=== PATIENT | male | born 1965 | race Two or more races ===

== ENCOUNTER 2020-03-14 16:14 | Emergency (ER) | payer MEDICAID, SELFPAY ==
[2020-03-14 16:34] VITALS: BP 129/80; PULSE 77; RESP 18; TEMP 36.3; O2SAT 98; BMI 47.1
--- NOTE | 2020-03-14 16:39 | ED.GENADULT ---
HPI - General Adult General Chief complaint: Wound/Laceration Stated complaint: Leg LAc Time Seen by Provider: 03/14/20 16:38 Source: patient Mode of arrival: ambulatory Limitations: no limitations History of Present Illness HPI narrative: 55 y/o male with history of obesity, DM2, HTN, CHF who presents with left lower leg laceration after a scrap metal door slammed into his leg when he was trying to dispose of it with his son. Laceration is small and he was able to control the bleeding. Not on blood thinners. No other injuries. Walking normally. complaint: laceration Onset (ago): hour(s) (1) Location: lower extremity Radiation: non-radiation Severity: mild Severity scale (1-10): 3 Quality: aching Pain Consistency: now resolved Relieving factors: none Exacerbating factors: none Associated symptoms: denies other symptoms Treatments prior to arrival: other (bandage) Related Data Previous Rx's Medication Instructions Recorded cephalexin [Keflex] 500 mg PO QID 7 Days #28 cap 03/14/20 Allergies Allergy/AdvReac Type Severity Reaction Status Date / Time No Known Allergies Allergy Verified 03/14/20 16:34 [No Known Allergies*] Review of Systems Review of Systems: Constitutional: No Fever, No Chills Cardiovascular: No Chest Pain, No SOB Respiratory: No Cough, No Sputum Gastrointestinal: No Nausea, No Vomiting, No Diarrhea, No abdominal Pain Musculoskeletal: No joint pain, No Myalgias Skin: + Skin Lesions, No rash Neuro: No Weakness, No Numbness Heme/Lymph: No Bruising PMFSH Past Medical History Attestation statement: The following information was validated with the patient. Medical History Diabetes HTN (hypertension) Obese Social History Social History Advance Directives: No Advance Directives Information Provided: No Physical Exam Vital Signs: Vital Signs: Last Vital Signs Temp 97.3 F 03/14/20 16:34 Pulse 77 03/14/20 16:34 Resp 18 03/14/20 16:34 BP 129/80 03/14/20 16:34 Pulse Ox 98 03/14/20 16:34 Body Mass Index 47.1 Appearance: Alert. Oriented X3. No acute distress. HEENT: normal inspection Respiratory: No respiratory distress. Skin: Skin warm and dry. Normal skin color. Normal skin turgor. No rashes. Extremities: lower left lateral leg with 1cm superficial laceration, no active bleeding. no calf tenderness. no surrounding erythema. Neuro: Oriented X 3. Non-focal. Normal, steady gait. Course Course Course Narrative: Rapid medical exam on arrival to ER - 55 y/o male with hx DM2, HTN, CHF presenting with small left lower leg laceration after a large scrap metal door slammed into his son's house. No other injuries, bleeding controlled on arrival. Does not appear to need repair - anticipate steri-strips and abx. Reevaluation(s) Reevaluation #1: TDAP given. Procedures Laceration Laceration 1: Site: lower extremity Side (If applicable): left Size (cm): 1 Description: linear and clean Depth: simple, single layer Pre-repair: irrigated extensively Skin layer closed with: other (steri strips) Discharge Plan Discharge Clinical Impression: Laceration Patient Disposition: Home, Self-Care Instructions: Laceration (ED) Additional Instructions: Keep area clean and dry. Allow steri-strips to fall off on their own, do not peel off. You may get wound wet briefly with soap and water, then pat dry. Take the antibiotic to prevent infection. Monitor for signs of infection including redness, warmth, pain, drainage of pus. Follow up with your doctor this week as needed. Prescriptions: New cephalexin [Keflex] 500 mg capsule 500 mg PO QID 7 Days Qty: 28 RF: 0
== END 2020-03-14 17:46 | disposition home or self-care (01) ==
LOC: HO.ED 17:22
PROVIDERS: Emergency Provider Emergency Medicine; PCP Internal Medicine
DX: S81.812A Laceration without foreign body, left lower leg, initial encounter (principal); W26.8XXA Contact with other sharp object(s), not elsewhere classified, initial encounter; Y93.E9 Activity, other interior property and clothing maintenance; Y92.019 Unspecified place in single-family (private) house as the place of occurrence of the external cause; Y99.9 Unspecified external cause status
CPT/HCPCS: 90471; 90715; 99283; 99284

== ENCOUNTER → 2020-04-12 14:37 | Outpatient (BNVA) | payer MEDICAID, SELFPAY | PROVIDERS: PCP Internal Medicine; Visit Provider Internal Medicine | DX: E66.01 Morbid (severe) obesity due to excess calories (principal); G47.33 Obstructive sleep apnea (adult) (pediatric); Z99.89 Dependence on other enabling machines and devices | CPT/HCPCS: 99212 ==

== ENCOUNTER 2020-10-03 11:14 | Emergency (ER) | payer MEDICAID, SELFPAY ==
--- NOTE | ~2020-10-03 | XR_ITS ---
EXAMINATION: XR RIBS, LEFT CLINICAL INFORMATION: Pain. COMPARISON: 09/21/2018 TECHNIQUE: 3 views of the left ribs were obtained and AP view of the chest. FINDINGS: Lungs are clear. No consolidation, pneumothorax, or pleural effusion. The cardiomediastinal silhouette and pulmonary vasculature are normal. Osseous structures are unremarkable. Ribs are intact. No fractures are identified. Degenerative disc disease is present in the thoracic spine. XR/XR ribs LT min 3V w CXR1V IMPRESSION: No acute pulmonary findings. No acute abnormalities at the left ribs.
[2020-10-03 11:37] VITALS: BP 140/70; PULSE 77; RESP 18; TEMP 37.2; O2SAT 98; BMI 41.3
[2020-10-03 12:17] LABS: MANUAL DIFF FLAG NO
[2020-10-03 12:26] LABS: Basophils Percent Auto 0.3 % (0-2); Eosinophils Absolute Auto 0.1 X10*3/uL (0.0-0.4); Eosinophils Percent Auto 0.5 % (0-4); Hematocrit 44.8 % (42-52); Hemoglobin 15.6 g/dl (14.0-18.0); Imm Gran Abs Auto 0.03 X10*3/uL (0.00-0.03); Imm Gran Pct Auto 0.3 % (0.0-0.4); Lymphocytes Absolute Auto 1.7 X10*3/uL (1.2-4.9); Lymphocytes Percent Auto 18.3 % (20-40); Mean Corpuscular HGB Conc 34.8 g/dl (31.0-36.0); Mean Corpuscular Hemoglobin 30.7 pg (27.0-33.0); Mean Corpuscular Volume 88.2 fL (80-98); Mean Platelet Volume 9.7 fL (9.4-12.4); Monocytes Absolute Auto 0.7 X10*3/uL (0.1-1.2); Monocytes Percent Auto 7.2 % (2-11); Neutrophils Absolute Auto 6.7 X10*3/uL (2.0-8.3); Neutrophils Percent Auto 73.4 % (45-73); Platelet Count 253 X10*3/uL (160-400); Red Blood Count 5.08 X10*6/uL (4.60-5.80); White Blood Count 9.1 X10*3/uL (4.8-10.8)
[2020-10-03 12:53] LABS: Alanine Aminotransferase 22 U/L (0-40); Albumin Level 4.2 g/dL (3.5-5.0); Alkaline Phosphatase 72 U/L (39-117); Anion Gap 13 (12-20); Aspartate Amino Transferase 21 U/L (5-37); Bilirubin Total 0.5 mg/dL (0.0-1.0); Blood Urea Nitrogen 12 mg/dL (9-16); Calcium 9.4 mg/dL (8.4-10.2); Carbon Dioxide 32 mmol/L (22-29); Chloride 97 mmol/L (96-108); Creatinine Clr Calc Pharmacy 117.3; Estimated Glomerular Filt Rate > 60; Glucose Random 114 mg/dL (60-115); Sodium 139 mmol/L (135-145); Total Protein 7.2 g/dL (6.5-8.0)
--- NOTE | 2020-10-03 19:12 | ECG_ITS ---
Test Reason : BACK PAIN Blood Pressure : / mmHG Vent. Rate : 065 BPM Atrial Rate : 065 BPM P-R Int : 146 ms QRS Dur : 102 ms QT Int : 452 ms P-R-T Axes : 055 036 059 degrees QTc Int : 470 ms Normal sinus rhythm Normal ECG When compared to the previous EKG of Nonspecific ST abnormality is no longer Present Referred By: Alvina Mueller Electronically Signed By:JURGEN CORRAL MD
--- NOTE | 2020-10-03 19:12 | ED.GENADULT ---
HPI - General Adult General Chief complaint: General Medical Stated complaint: back pain Time Seen by Provider: 10/03/20 19:11 History of Present Illness HPI narrative: Patient is a 55-year-old male presented today with having pain to the left upper back area. Worse with movement. Last a few seconds and is sharp. Certain types of movement makes it worse. Patient has a history diabetes. Was lifting up 50 lb blocks. Denies any coughing congestion upper respiratory symptoms. No diaphoresis. No fever no chills. No nausea no vomiting. Patient from home. Related Data Home Medications Medication Instructions Recorded Confirmed chlorthalidone 25 mg tablet 25 mg PO DAILY 04/12/20 metformin 500 mg tablet 500 mg PO DAILY 04/12/20 Previous Rx's Medication Instructions Recorded cephalexin 500 mg capsule (Keflex) 500 mg PO QID 7 Days #28 cap 03/14/20 Allergies Allergy/AdvReac Type Severity Reaction Status Date / Time No Known Allergies Allergy Verified 10/03/20 11:37 [No Known Allergies*] Review of Systems Review of Systems: Constitutional: No Weight loss, No Fever, No Chills, No Night Sweats, No Fatigue, No Malaise ENT/Mouth: No Hearing loss, No Ear Pain, No Nasal Congestion, No Sinus Pain, No Hoarseness, No sore throat, No Rhinorrhea, No Swallowing Difficulty Eyes: No Eye Pain, No Swelling, No Redness, No Foreign Body, No Discharge, No Vision Changes Cardiovascular: Positive left upper back pain, No SOB, No Dyspnea on Exertion, No Orthopnea, No Edema, No Palpitations Respiratory: No Cough, No Sputum, No Wheezing, No Smoke Exposure, No Dyspnea Gastrointestinal: No Nausea, No Vomiting, No Diarrhea, No Constipation, No abdominal Pain, No Hematochezia, No Melena Genitourinary: no irregular bleeding, No Dysuria, No Urinary Frequency, No Hematuria, No Urinary Incontinence, No Urgency, No Flank Pain, No Urinary Flow Changes, No Hesitancy Musculoskeletal: No joint pain, No Myalgias, No Joint Swelling Skin: No Skin Lesions, No rash Neuro: No Weakness, No Numbness, No Paresthesias, No Loss of Consciousness, No Dizziness, No Headache Psych: No Anxiety/Panic, No Depression, No SI/HI/AH/VH, No Social Issues, Heme/Lymph: No Bruising, No Bleeding,No Lymphadenopathy Endocrine: No Polyuria, No Polydipsia, No Temperature Intolerance [facility] Past Medical History Attestation statement: The following information was validated with the patient. Medical History Diabetes HTN (hypertension) Morbid obesity Obese ANGELA on CPAP Social History Social History Alcohol intake: current Patient Tobacco Use Status: Current everyday Tobacco user Cigarette Packs Per Day: 0.5 Cigarettes Per Day: 5 Use of substances other than those prescribed or required for medical reasons: No Advance Directives: No Physical Exam Vital Signs: Vital Signs: Last Vital Signs Temp 97.2 F 10/03/20 20:00 Pulse 78 10/03/20 20:00 Resp 16 10/03/20 20:00 BP 126/78 10/03/20 20:00 Pulse Ox 98 10/03/20 20:00 Body Mass Index 41.3 Appearance: Alert. Oriented X3. No acute distress. Eyes: Pupils equal, round and reactive to light. ENT: Pharynx normal. Neck: Normal inspection. Neck supple. No lymph nodes noted. No crepitus CVS: Normal heart rate and rhythm. Pulses normal. Normal S1 and S2 Respiratory: No respiratory distress. Breath sounds normal. No Wheezing. No rales. No chest wall tenderness no crepitus on palpation. Abdomen: Soft and nontender. No rigidity. No distention. good BS x4 Skin: Skin warm and dry. Normal skin color. Normal skin turgor. Extremities: No lower extremity edema. Neurovascular intact to all extremities. No Lacerations. No Rash Neuro: Oriented X 3. No motor deficit. No sensory deficit. Moving all extermities. No slurred speech Medical Decision Making MDM Narrative Medical decision making narrative: Will get x-ray of the ribs to ensure there is no fracture. Baseline labs are normal. Will get an EKG. We will monitor carefully. X-ray of the ribs and chest showed no evidence of pneumonia, pneumothorax no rib fracture noted. Patient's EKG showed a sinus pattern heart rate was 70 MI QRS QT within normal limits is no acute ST segment elevation. History not consistent with acute myocardial infarction. Urine showed no infection. No CVA tenderness no blood. Unlikely secondary to kidney stone. Patient's pain is positional. Few seconds at a time. D-dimer is negative at less than 200. A low risk history making pulmonary emboli unlikely. Will discharge patient home Lab Data Result diagrams: 10/03/20 12:13 10/03/20 12:13 Labs: Lab Results 10/03/20 10/03/20 10/03/20 Range/Units 12:13 12:13 20:13 WBC 9.1 (4.8-10.8) X10*3/uL RBC 5.08 (4.60-5.80) X10*6/uL Hgb 15.6 (14.0-18.0) g/dl Hct 44.8 (42-52) % MCV 88.2 (80-98) fL MCH 30.7 (27.0-33.0) pg MCHC 34.8 (31.0-36.0) g/dl RDW 12.0 (11.0-16.0) % Plt Count 253 (160-400) X10*3/uL MPV 9.7 (9.4-12.4) fL Immature Gran % (Auto) 0.3 (0.0-0.4) % Neut % (Auto) 73.4 H (45-73) % Lymph % (Auto) 18.3 L (20-40) % [place] % (Auto) 7.2 (2-11) % Eos % (Auto) 0.5 (0-4) % Baso % (Auto) 0.3 (0-2) % Lymph # (Auto) 1.7 (1.2-4.9) X10*3/uL [place] # (Auto) 0.7 (0.1-1.2) X10*3/uL Eos # (Auto) 0.1 (0.0-0.4) X10*3/uL Baso # (Auto) 0.0 (0.0-0.2) X10*3/uL Abs Immat Gran (auto) 0.03 (0.00-0.03) X10*3/uL Absolute Neuts (auto) 6.7 (2.0-8.3) X10*3/uL Absolute Nucleated RBC 0.000 (0.0-0.012) X10*3/uL Nucleated RBC % (auto) 0.0 (0.0-0.2) /100WBC D-Dimer < 200 NG/ML Sodium 139 (135-145) mmol/L Potassium 3.0 L (3.3-5.1) mmol/L Chloride 97 (96-108) mmol/L Carbon Dioxide 32 H (22-29) mmol/L Anion Gap 13 (12-20) BUN 12 (9-16) mg/dL Creatinine 0.92 (0.5-1.4) mg/dL Estim Creat Clear Calc 117.3 Estimated GFR > 60 Random Glucose 114 (60-115) mg/dL Calcium 9.4 (8.4-10.2) mg/dL Total Bilirubin 0.5 (0.0-1.0) mg/dL AST 21 (5-37) U/L ALT 22 (0-40) U/L Alkaline Phosphatase 72 (39-117) U/L Total Protein 7.2 (6.5-8.0) g/dL Albumin 4.2 (3.5-5.0) g/dL Urine Color Urine Appearance Urine pH (5.0-8.0) Ur Specific Hugo (1.005-1.025) Urine Protein (NEG-TRACE) MG/DL Urine Glucose (UA) (NEG) MG/DL Urine Ketones (NEG) MG/DL Urine Blood (NEG) Urine Nitrite (NEG) Ur Leukocyte Esterase (NEG) 10/03/20 Range/Units 20:13 WBC (4.8-10.8) X10*3/uL RBC (4.60-5.80) X10*6/uL Hgb (14.0-18.0) g/dl Hct (42-52) % MCV (80-98) fL MCH (27.0-33.0) pg MCHC (31.0-36.0) g/dl RDW (11.0-16.0) % Plt Count (160-400) X10*3/uL MPV (9.4-12.4) fL Immature Gran % (Auto) (0.0-0.4) % Neut % (Auto) (45-73) % Lymph % (Auto) (20-40) % [place] % (Auto) (2-11) % Eos % (Auto) (0-4) % Baso % (Auto) (0-2) % Lymph # (Auto) (1.2-4.9) X10*3/uL [place] # (Auto) (0.1-1.2) X10*3/uL Eos # (Auto) (0.0-0.4) X10*3/uL Baso # (Auto) (0.0-0.2) X10*3/uL Abs Immat Gran (auto) (0.00-0.03) X10*3/uL Absolute Neuts (auto) (2.0-8.3) X10*3/uL Absolute Nucleated RBC (0.0-0.012) X10*3/uL Nucleated RBC % (auto) (0.0-0.2) /100WBC D-Dimer NG/ML Sodium (135-145) mmol/L Potassium (3.3-5.1) mmol/L Chloride (96-108) mmol/L Carbon Dioxide (22-29) mmol/L Anion Gap (12-20) BUN (9-16) mg/dL Creatinine (0.5-1.4) mg/dL Estim Creat Clear Calc Estimated GFR Random Glucose (60-115) mg/dL Calcium (8.4-10.2) mg/dL Total Bilirubin (0.0-1.0) mg/dL AST (5-37) U/L ALT (0-40) U/L Alkaline Phosphatase (39-117) U/L Total Protein (6.5-8.0) g/dL Albumin (3.5-5.0) g/dL Urine Color YELLOW Urine Appearance HAZY Urine pH 7.0 (5.0-8.0) Ur Specific [place] 1.015 (1.005-1.025) Urine Protein 1+ H (NEG-TRACE) MG/DL Urine Glucose (UA) NEG (NEG) MG/DL Urine Ketones NEG (NEG) MG/DL Urine Blood NEG (NEG) Urine Nitrite NEG (NEG) Ur Leukocyte Esterase NEG (NEG) Discharge Plan Discharge Clinical Impression: Acute chest wall pain Patient Disposition: Home, Self-Care Instructions: Chest Wall Pain (ED) Prescriptions: No Action cephalexin [Keflex] 500 mg capsule 500 mg PO QID 7 Days Qty: 28 RF: 0 metformin 500 mg tablet 500 mg PO DAILY RF: 0 chlorthalidone 25 mg tablet 25 mg PO DAILY RF: 0 Referrals: Kyaw Bains MD [Primary Care Provider] - 2 days
[2020-10-03 20:00] VITALS: BP 126/78; PULSE 78; RESP 16; TEMP 36.2; O2SAT 98
--- NOTE | 2020-10-03 20:06 | PC.NURSE ---
3 weeks of left lower back pain. worse when rotating thorax to the left denies uti sx. strong steady gait. family present. skin pwd.
[2020-10-03 20:23] LABS: Glucose Urine UA NEG (NEG); Leukocyte Esterase Urine NEG (NEG); Nitrite Urine NEG (NEG); Specific Gravity - Urine 1.015 (1.005-1.025); UACC Culture Trigger NO; Urine Blood NEG (NEG); Urine Ketones NEG (NEG); Urine Protein 1+ MG/DL (NEG-TRACE)
[2020-10-03 20:25] LABS: Appearance Urine HAZY; Color Urine YELLOW
[2020-10-03 20:47] LABS: D Dimer < 200 NG/ML
[2020-10-03 20:49] LABS: Amorphous Sediment Urine 2+ /LPF; Bacteria Urine TRACE /LPF; RBC Urine 0-2 /HPF (0); Squamous Epithelial Cell Urine TRACE /LPF
== END 2020-10-03 21:11 | disposition home or self-care (01) ==
PROVIDERS: Emergency Provider Emergency Medicine Emergency Medical Services; PCP Internal Medicine
DX: R07.89 Other chest pain (principal); M54.5 Low back pain; I10 Essential (primary) hypertension; E11.9 Type 2 diabetes mellitus without complications; F17.210 Nicotine dependence, cigarettes, uncomplicated; Z79.899 Other long term (current) drug therapy; Z71.6 Tobacco abuse counseling
CPT/HCPCS: 36415; 71101; 80053; 81001; 85025; 85379; 93005; 99283; 99284

== ENCOUNTER → 2020-10-13 09:05 | Outpatient (BNVA) | payer MEDICAID, SELFPAY | PROVIDERS: PCP Internal Medicine; Visit Provider Internal Medicine | DX: E66.01 Morbid (severe) obesity due to excess calories (principal); G47.33 Obstructive sleep apnea (adult) (pediatric); Z99.89 Dependence on other enabling machines and devices | CPT/HCPCS: 99212 ==

== ENCOUNTER → 2021-04-10 09:31 | Outpatient (BNVA) | payer MEDICAID, SELFPAY | PROVIDERS: PCP Internal Medicine; Visit Provider Internal Medicine | DX: G47.33 Obstructive sleep apnea (adult) (pediatric) (principal); E66.01 Morbid (severe) obesity due to excess calories; Z99.89 Dependence on other enabling machines and devices; Z68.41 Body mass index [BMI] 40.0-44.9, adult | CPT/HCPCS: 99212 ==

== ENCOUNTER 2021-05-20 08:48 | Outpatient (REF) | payer MEDICAID, SELFPAY ==
[2021-05-20 10:03] LABS: Anion Gap 15 (12-20); Blood Urea Nitrogen 11 mg/dL (9-16); Calcium 9.7 mg/dL (8.4-10.2); Carbon Dioxide 30 mmol/L (22-29); Chloride 98 mmol/L (96-108); Cholesterol 199 mg/dL; Estimated Glomerular Filt Rate > 60; Glucose Random 133 mg/dL (60-115); HDL Cholesterol 43 mg/dL; LDL Cholesterol Calculated 123 mg/dl; Potassium 3.5 mmol/L (3.3-5.1); Sodium 139 mmol/L (135-145); Triglycerides 166 mg/dL
[2021-05-20 10:28] LABS: Prostate Specific Antigen 0.68 ng/mL (<0.05-4.0); TSH reflex Free T4 2.25 uIU/mL (0.32-4.0)
[2021-05-20 10:38] LABS: Creatinine Urine 189.58 mg/dL; Microalbum/Creatinine Ratio Ur 16.3 ug/mg cr
[2021-05-22 04:05] LABS: ~HepC Num1 0.08 S/CO (0.00-0.79); ~Hepatitis C Antibody Nonreactive (Nonreactive)
== END 2021-05-20 08:49 | disposition home or self-care (01) ==
LOC: HO.LAB 08:48
PROVIDERS: PCP Internal Medicine; Visit Provider Internal Medicine
DX: E11.9 Type 2 diabetes mellitus without complications (principal); E66.01 Morbid (severe) obesity due to excess calories; I10 Essential (primary) hypertension; Z12.5 Encounter for screening for malignant neoplasm of prostate
CPT/HCPCS: 36415; 80048; 80061; 82043; 84153; 84443; 86803

== ENCOUNTER → 2021-11-09 15:00 | Outpatient (BNVA) | payer MEDICAID, SELFPAY | PROVIDERS: PCP Internal Medicine; Visit Provider Internal Medicine | DX: G47.33 Obstructive sleep apnea (adult) (pediatric) (principal); E66.01 Morbid (severe) obesity due to excess calories; Z99.89 Dependence on other enabling machines and devices; Z68.41 Body mass index [BMI] 40.0-44.9, adult | CPT/HCPCS: 99212 ==

== ENCOUNTER 2022-01-15 | Outpatient (REF) | payer MEDICAID, SELFPAY ==
--- NOTE | ~2022-01-15 | XR_ITS ---
EXAMINATION: AP BILATERAL KNEE AND RIGHT KNEE. CLINICAL INFORMATION: Pain right knee. COMPARISON: None TECHNIQUE: AP bilateral knee standing and right knee 2 views. FINDINGS: AP bilateral knee: There is severe loss of medial compartment joint space both knees with moderate periarticular spurring. Minimal loss of lateral compartment joint space with right knee periarticular spurring Right knee: Lateral and patellofemoral views reveal mild reduction in the patellofemoral joint space with superior and right lateral patellar spurring and moderate anterior patellar enthesophytes. No acute fracture, loose bodies or bony erosive changes seen. No abnormal suprapatellar joint effusion seen. XR/XR knee standing BI IMPRESSION: 1. Degenerative arthritic changes tricompartment right knee with periarticular spurring. No acute fracture, loose bodies or joint effusion seen. 2. Degenerative arthritic changes medial and patellofemoral compartment with periarticular spurring.
--- NOTE | ~2022-01-15 | XR_ITS ---
EXAMINATION: AP BILATERAL KNEE AND RIGHT KNEE. CLINICAL INFORMATION: Pain right knee. COMPARISON: None TECHNIQUE: AP bilateral knee standing and right knee 2 views. FINDINGS: AP bilateral knee: There is severe loss of medial compartment joint space both knees with moderate periarticular spurring. Minimal loss of lateral compartment joint space with right knee periarticular spurring Right knee: Lateral and patellofemoral views reveal mild reduction in the patellofemoral joint space with superior and right lateral patellar spurring and moderate anterior patellar enthesophytes. No acute fracture, loose bodies or bony erosive changes seen. No abnormal suprapatellar joint effusion seen. XR/XR knee RT 2V IMPRESSION: 1. Degenerative arthritic changes tricompartment right knee with periarticular spurring. No acute fracture, loose bodies or joint effusion seen. 2. Degenerative arthritic changes medial and patellofemoral compartment with periarticular spurring.
== END 2022-01-15 00:01 ==
LOC: HO.HOSX
PROVIDERS: Visit Provider Physician Assistant
DX: M17.11 Unilateral primary osteoarthritis, right knee (principal); E11.9 Type 2 diabetes mellitus without complications
CPT/HCPCS: 20610; 73560; 73565; 99212; J1020

== ENCOUNTER 2022-01-27 07:04 | Outpatient (REF) | payer MEDICAID, SELFPAY ==
[2022-01-27 08:10] LABS: Anion Gap 11 (12-20); Blood Urea Nitrogen 14 mg/dL (9-16); Calcium 9.4 mg/dL (8.4-10.2); Carbon Dioxide 34 mmol/L (22-29); Chloride 93 mmol/L (96-108); Cholesterol 188 mg/dL; Estimated Glomerular Filt Rate > 60; Glucose Random 124 mg/dL (60-115); HDL Cholesterol 53 mg/dL; LDL Cholesterol Calculated 97 mg/dl; Potassium 3.6 mmol/L (3.3-5.1); Sodium 134 mmol/L (135-145); Triglycerides 191 mg/dL
== END 2022-01-27 07:05 | disposition home or self-care (01) ==
LOC: HO.LAB 07:04
PROVIDERS: PCP Internal Medicine; Visit Provider Internal Medicine
DX: I10 Essential (primary) hypertension (principal)
CPT/HCPCS: 36415; 80048; 80061

== ENCOUNTER → 2022-05-09 14:29 | Outpatient (BNVA) | payer MEDICAID, SELFPAY | PROVIDERS: PCP Internal Medicine; Visit Provider Internal Medicine | DX: G47.33 Obstructive sleep apnea (adult) (pediatric) (principal); E66.01 Morbid (severe) obesity due to excess calories; Z99.89 Dependence on other enabling machines and devices; Z68.42 Body mass index [BMI] 45.0-49.9, adult | CPT/HCPCS: 99212 ==

== ENCOUNTER 2022-11-15 14:33 | Outpatient (AMB) | payer MEDICAID, SELFPAY ==
[2022-11-15 14:43] VITALS: BP 118/70; PULSE 89; O2SAT 97; BMI 40.1
--- NOTE | 2022-11-15 14:43 | MHC.OFFVIS ---
Intake Vital Signs 11/15/22 14:43 Height 5 ft 8 in Weight 264 lb BMI 40.1 BP 118/70 Blood Pressure Location Lt brachial Position Sitting Pulse 89 Pulse Source Pulse Oximeter Pulse Oximetry (%) 97 Oxygen Delivery Method Room Air Intake Visit Reasons: Obstructive sleep apnea Intake Note: pt is here for follow up and states he is down some weight, he is using cpap and it is going well. 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 He is a case of obstructive sleep apnea, being treated with CPAP / FF mask and pressure of 18 cm. Is a very regular user of CPAP. And misses on some nights when he has to look after his daughter who has seizure disorder. 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 In the last 6 months he has lost 33 lb of weight, feels very good about this, and plans to lose more even during the winter months. He has no issues with the use of CPAP device. [facility] Medical History ANGELA on CPAP Morbid obesity Diabetes HTN (hypertension) Obese Social History Alcohol intake: current Patient Tobacco Use Status: Current everyday Tobacco user Cigarette Packs Per Day: 0.5 Cigarettes Per Day: 5 Current occupational status: unemployed Current occupation: right hand dominant Review of Systems Const All systems reviewed & are unremarkable except as noted in HPI and below Eyes Reports no additional complaints ENT Reports no additional complaints Card Denies chest pain, Denies irregular heart rhythm and Denies leg edema Resp Reports no additional complaints GI Reports no additional complaints Reports no additional complaints Musc Reports no additional complaints Skin/Breast Reports system reviewed and no additional complaints, except as documented Neuro Reports no additional complaints Psych Reports no additional complaints Endo Reports other (Being treated for her DM.) Reilly/Lymph Reports no additional complaints Physical Exam Vital Signs: Last Vital Signs Pulse 89 11/15/22 14:43 BP 118/70 11/15/22 14:43 Pulse Ox 97 11/15/22 14:43 Oxygen Delivery Method Room Air 11/15/22 14:43 BMI result Body Mass Index 40.1 Const Other: HAS LOST 19 LB SINCE LAST VISIT General: comfortable, no acute distress, alert and awake Orientation/consciousness: patient oriented x3 HEENT Head: Yes normal to inspection General nose exam: No nasal polyps present and No nasal discharge present Face and sinus: Yes sinuses nontender Mouth: oropharynx abnormals (Narrow and crowded, Mallampati class 4) Throat: Yes posterior oropharynx normal Eyes General: appearance normal, both eyes and all related structures Neck Neck: Yes normal visual inspection, Yes no lymphadenopathy, Yes trachea midline and Yes no JVD Thyroid: Thyroid normal Chest Chest palpation & inspection: normal inspection of the chest, normal palpation of entire chest wall and no tenderness Resp Effort & Inspection: normal respiratory effort Auscultation: clear to auscultation bilaterally, no crackles, no rhonchi and no wheezes Percussion: percussion normal Cardio Palpation: normal PMI Rate: regular rate Rhythm: regular rhythm Heart sounds: no gallops and no murmurs GI Palpation (GI): Soft to palpation, nontender, No hepatosplenomegaly present, no masses and Other GI palpation findings present (Abdomen is slightly obese and protuberant) Auscultation: normal bowel sounds Back/Spine/Pelvis Thoracic/Lumbar Spine: thoracic and lumbar spine normal to inspection Skin General skin exam: no rashes or lesions noted Neuro General: patient oriented x3 and no focal motor deficits Cranial nerves: Yes CN's II-XII intact bilaterally Extrem General: Yes normal to inspection, Yes no clubbing, cyanosis or edema, Yes no calf tenderness and Yes venous stasis dermatitis (Mild the left leg.) Psych Appearance: grossly normal and well kempt Speech and movement: Normal speech and movement present Results Reviewed Results Reviewed: COMPLIANCE REPORT FOR THE LAST 30 NIGHTS IS REVIEWED. HE USED / NIGHTS. AVERAGE USE PER NIGHT 5 HOURS 40 MINUTES. NO AIR LEAK. RESIDUAL AHI 2.5. * NOTED ABOVE HE MISSED USING FOR 4 NIGHTS IN A MONTH BECAUSE ON THOSE NIGHTS HE HAD TO LOOK AFTER HIS DAUGHTER WITH SEIZURE DISORDER. Assessment & Plan Assessment & Plan (1) Morbid obesity: Comment: HE IS WELL AWARE OF HIS BEING OVERWEIGHT, AND HAS A GREAT JOB, LOSING 33 LB IN THE LAST 6 MONTHS. HE IS COMMENDED FOR LOSING WEIGHT AND ALSO ENCOURAGED TO KEEP ON LOSING WEIGHT DURING THE WINTER MONTHS WELL. HE SEEMS TO BE VERY MOTIVATED. Code(s): E66.01 - Morbid (severe) obesity due to excess calories (2) ANGELA on CPAP: Comment: HAS BEEN VERY COMPLIANT.AND IS VERY HAPPY WITH THE USAGE. RESIDUAL AHI ONLY 2.5 THIS TIME WHICH IS MUCH IMPROVED. ADVISED TO CONTINUE USING THE CPAP WITH FULL FACE MASK AND PRESSURE OF 18 CM. WILL RECHECK IN 6 MONTHS . Code(s): G47.33 - Obstructive sleep apnea (adult) (pediatric); Z99.89 - Dependence on other enabling machines and devices Coding Level of Care Code Tele Est Pt Level 3 (41541) Diagnoses Morbid obesity E66.01 ANGELA on CPAP G47.33; Z99.89
== END 2022-11-15 15:22 | disposition home or self-care (01) ==
PROVIDERS: PCP Internal Medicine; Visit Provider Internal Medicine
DX: E66.01 Morbid (severe) obesity due to excess calories (principal); Z68.41 Body mass index [BMI] 40.0-44.9, adult; G47.33 Obstructive sleep apnea (adult) (pediatric); Z99.89 Dependence on other enabling machines and devices
CPT/HCPCS: 99213

== ENCOUNTER → 2022-11-15 14:33 | Outpatient (BNVA) | payer MEDICAID, SELFPAY | PROVIDERS: PCP Internal Medicine; Visit Provider Internal Medicine | DX: G47.33 Obstructive sleep apnea (adult) (pediatric) (principal); E66.01 Morbid (severe) obesity due to excess calories; Z68.41 Body mass index [BMI] 40.0-44.9, adult; Z99.89 Dependence on other enabling machines and devices | CPT/HCPCS: 99212 ==

== ENCOUNTER 2023-01-07 09:21 | Outpatient (REF) | payer MEDICAID, SELFPAY ==
[2023-01-07 10:52] LABS: Alanine Aminotransferase 19 U/L (0-40); Albumin Level 4.1 g/dL (3.5-5.0); Alkaline Phosphatase 75 U/L (39-117); Anion Gap 12 (12-20); Aspartate Amino Transferase 18 U/L (5-37); Bilirubin Direct 0.2 mg/dL (0.0-0.5); Bilirubin Total 0.4 mg/dL (0.0-1.0); Blood Urea Nitrogen 9 mg/dL (9-16); Calcium 9.6 mg/dL (8.4-10.2); Carbon Dioxide 33 mmol/L (22-29); Chloride 100 mmol/L (96-108); Estimated Glomerular Filt Rate > 60; Glucose Random 106 mg/dL (60-115); Potassium 3.7 mmol/L (3.3-5.1); Sodium 141 mmol/L (135-145); Total Protein 7.6 g/dL (6.5-8.0)
[2023-01-07 10:55] LABS: Cholesterol 178 mg/dL (<200); HDL Cholesterol 44 mg/dL (>40); LDL Cholesterol Calculated 68 mg/dL (<100); Triglycerides 330 mg/dL (<150)
[2023-01-07 11:09] LABS: Reflex LDLD? No
== END 2023-01-07 09:22 | disposition home or self-care (01) ==
LOC: HO.LAB 09:21
PROVIDERS: PCP Internal Medicine; Visit Provider Internal Medicine
DX: E11.9 Type 2 diabetes mellitus without complications (principal)
CPT/HCPCS: 36415; 80048; 80061; 80076

== ENCOUNTER 2023-08-27 13:43 | Outpatient (AMB) | payer MEDICAID, SELFPAY ==
--- NOTE | 2023-08-27 13:47 | A.OFFVIS_ITS ---
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 He reports he almost fell but was able to support his body by holding on to wall. Patient reports he has been wearing back support brace with some relief. Denies previous physical therapy, spine surgery or injections. He was seen in [facility] in the past and completed MRI in 2019 as noted below. Patient also received cort[facility]one knee injections at [facility] in 2019 and [facility] in 2021 with good results. Patient has been taking NSAIDs and muscle relaxant with minimal relief. He cannot pursue physical therapy at this time due to significant pain. He also reports he is the only income earner at home and cannot miss days at work. Pain affects his daily activities and functioning, mobility, work, sleep, mood, and social interactions. Denies any fever, abdominal or groin pain, bladder or bowel dysfunction or saddle anesthesia. Reports intermittent weakness in left lower extremity. Oswestry Low Back Disability Score=24 (moderate disability) Location: Lower back radiates into his hips, left thigh and LLE Duration: Chronic pain for many years, worsening for past 2 months Characteristics of symptom or complaint: Aching, radiating, cramping, shooting, numbness, tingling, sore, dull Aggravating or associated factors: Standing, prolonged sitting, walking, bending, lifting Relieving factors: Naproxen, warm showers, sitting, rest, activity modifications Treatment: Back brace, weight loss, walking [facility] Medical History (Updated 08/27/23 @ 14:23 by STEPHANIE Vaughan) Lumbar degenerative disc disease Lumbar spinal stenosis Other male erectile dysfunction Chronic midline low back pain without sciatica Hypertriglyceridemia Onychomycosis Bunion, right foot Alcoholism Male hypogonadism Tubular adenoma ANGELA on CPAP Morbid obesity Diabetes HTN (hypertension) Obese Social History Alcohol intake: current Alcohol intake frequency: 0-2 drinks per day Alcohol type: beer Patient Tobacco Use Status: Current everyday Tobacco user Cigarette Packs Per Day: 0.5 Cigarettes Per Day: 5 Current occupational status: unemployed Current occupation: right hand dominant Review of Systems Const All systems reviewed & are unremarkable except as noted in HPI and below Physical Exam Vital Signs: Last Vital Signs BP 142/70 H 08/27/23 13:53 Pulse Ox 96 08/27/23 13:53 Oxygen Delivery Method Room Air 08/27/23 13:53 BMI result Body Mass Index 41.5 General: Appears afebrile. Alert and oriented. Mood and affect appropriate. Follows and participates in conversation appropriately. Respiratory effort is unlabored. No cough. Able to transition from sit to stand unassisted. Ambulates with bilaterally normal heel strike and toe off, reports LLE weakness due to pain. General: Yes no CVA tenderness Back/Spine/Pelvis Other: Limited lumbar ROM due to pain. Antalgic gait, with mild limping. Lumbar axial rotation, forward flexion and bending reproduces moderate pain. Demonstrates 5/5 right and 4/5 left strength of quadriceps bilaterally as well as flexion/dorsiflexion of bilateral feet against resistance. 2+ pedal pulses bilaterally. Straight leg rise with dorsiflexion positive on the left. +1 patellar and achilles reflexes bilaterally. Facet loading test positive bilaterally. Hannah sign, Gideon?s, Pelvic compression and Stinchfield tests are positive bilaterally. No groin pain with I/E hip rotations. Moderate TTP to right GTB and mild TTP to left GTB. Valsalva maneuver negative. Back: no CVA tenderness Cervical Spine: loss of normal cervical lordosis, cervical muscular tenderness, pain with cervical ROM and No Cervical spine tenderness Thoracic/Lumbar Spine: thoracic and lumbar spine normal to inspection, No Thoracic/lumbar spine scar(s), Lasegue's sign positive on the left and localized, pain with thoraco-lumbar ROM, paraspinal muscle tenderness, thoraco- lumbar ROM limited, No thoracic spinal tenderness and lumbar spinal tenderness at L3, at L4 and at L5 Pelvis: buttock tenderness bilaterally Sacroiliac joints: bilaterally tender to palpation Results Reviewed Results Reviewed: Assessment & Plan Assessment & Plan (1) Lumbosacral spondylosis: Code(s): M47.817 - Spondylosis without myelopathy or radiculopathy, lumbosacral region Category: Medical (2) Lumbar degenerative disc disease: Code(s): M51.36 - Other intervertebral disc degeneration, lumbar region Category: Medical (3) Lumbar back pain with radiculopathy affecting left lower extremity: Code(s): M54.16 - Radiculopathy, lumbar region Category: Medical (4) Lumbar spinal stenosis: Code(s): M48.061 - Spinal stenosis, lumbar region without neurogenic claudication Category: Medical Plan Lumbar spine imaging to assess degree of degenerative changes, any subluxation, listhesis, compression fractures or pars defects. MRI of the lumbar spine to assess for neural integrity and compression and follow up on previous lumbar MRI findings. Briefly discsussed interventional treatments for axial, discogenic, and radicular low back pain. Informational pamphletsl provided toady. Patient unable to tolerate physical therapy due to pain. He is encouraged to participate in daily physical activity, adequate hydration, good posture, weight loss with consideration of well-balanced diet. Refill provided for naproxen per patient's request. Side effects and precautions were reviewed with patient. All questions and concerns have been answered and patient agreed with the plan. Patient will return to the clinic to discuss results of the MRI findings when it is done and consider interventional therapy vs Neurosurgert evaluation as indicated.? Orders: Orders 2 XR lumbar spine 4V min 08/27/23 M47.817 - Spondylosis without myelopathy or radiculopathy, lumbosacral region, M48.061 - Spinal stenosis, lumbar region without neurogenic claudication, M51.36 - Other intervertebral disc degeneration, lumbar region, M54.16 - Radiculopathy, lumbar region MR lumbar spine wo con 08/27/23 M47.817 - Spondylosis without myelopathy or radiculopathy, lumbosacral region, M48.061 - Spinal stenosis, lumbar region without neurogenic claudication, M51.36 - Other intervertebral disc degeneration, lumbar region, M54.16 - Radiculopathy, lumbar region Medications: Changed 2 From naproxen 500 mg PO BID M47.817 - Spondylosis without myelopathy or radiculopathy, lumbosacral region, M51.36 - Other intervertebral disc degeneration, lumbar region To naproxen 500 mg PO BID 60 days 120 tabs 0RF pain M47.817 - Spondylosis without myelopathy or radiculopathy, lumbosacral region, M51.36 - Other intervertebral disc degeneration, lumbar region Coding Level of Care Code New Pt Level 4 (73350) Diagnoses Lumbosacral spondylosis M47.817 Lumbar degenerative disc disease M51.36 Lumbar back pain with radiculopathy affecting left lower extremity M54.16 Lumbar spinal stenosis M48.061
[2023-08-27 13:53] VITALS: BP 142/70; O2SAT 96; BMI 41.5
== END 2023-08-27 14:42 | disposition home or self-care (01) ==
PROVIDERS: PCP Internal Medicine; Referring Provider Internal Medicine; Visit Provider Nurse Practitioner Family
DX: M47.817 Spondylosis without myelopathy or radiculopathy, lumbosacral region (principal); M51.36 Other intervertebral disc degeneration, lumbar region; M54.16 Radiculopathy, lumbar region; M48.061 Spinal stenosis, lumbar region without neurogenic claudication
CPT/HCPCS: 99204

== ENCOUNTER → 2023-08-27 13:43 | Outpatient (BNVA) | payer MEDICAID, SELFPAY | PROVIDERS: PCP Internal Medicine; Referring Provider Internal Medicine; Visit Provider Nurse Practitioner Family | DX: M47.817 Spondylosis without myelopathy or radiculopathy, lumbosacral region (principal); M51.36 Other intervertebral disc degeneration, lumbar region; M54.16 Radiculopathy, lumbar region; M48.061 Spinal stenosis, lumbar region without neurogenic claudication; M25.551 Pain in right hip; M25.552 Pain in left hip | CPT/HCPCS: 99212 ==

== ENCOUNTER 2023-08-31 07:34 | Outpatient (REF) | payer MEDICAID, SELFPAY ==
[2023-08-31 08:36] LABS: Cholesterol 182 mg/dL (<200); HDL Cholesterol 47 mg/dL (>40); LDL Cholesterol Calculated 97 mg/dL (<100); Triglycerides 191 mg/dL (<150)
[2023-09-05 21:12] LABS: Testosterone, Free 43.9 pg/mL (35.0-155.0); Testosterone, Total 287 ng/dL (250-1100)
== END 2023-08-31 07:35 | disposition home or self-care (01) ==
LOC: HO.LAB 07:34
PROVIDERS: PCP Internal Medicine; Visit Provider Internal Medicine
DX: N52.8 Other male erectile dysfunction (principal); E78.1 Pure hyperglyceridemia
CPT/HCPCS: 36415; 80061; 84402; 84403

== ENCOUNTER 2023-10-31 12:51 | Outpatient (REF) | payer MEDICAID, SELFPAY ==
--- NOTE | ~2023-10-31 | XR_ITS ---
EXAMINATION: XR LUMBAR SPINE CLINICAL INFORMATION: Spondylosis without myelopathy or radiculopathy. COMPARISON: MRI dated 10/31/2023. TECHNIQUE: AP, lateral, and both oblique views of the lumbosacral spine. Lateral view of the lumbosacral junction. FINDINGS: Vertebral body heights are normal. No fracture or spondylolisthesis. Moderate degenerative disc disease at L4-L5 with loss of intervertebral disc height and endplate sclerosis. Prominent endplate osteophytes. More mild degenerative disc disease at L3-L4 and L5-S1. [id number] multilevel facet arthropathy. Mild osteoarthritis in the SI joints. Bone mineralization is normal. Cholelithiasis. XR/XR lumbar spine 4V min IMPRESSION: 1. Moderate degenerative disc disease at L4-L5 and more mild degenerative disc disease at L3-L4 and L5-S1. 2. [id number] multilevel facet arthropathy. 3. Cholelithiasis. Electronically signed by: Gaurav Kenney MD 11/18/2023 11:10 PM EDT
--- NOTE | ~2023-10-31 | MR_ITS ---
EXAMINATION: MR LUMBAR SPINE WITHOUT CONTRAST CLINICAL INFORMATION: Low back pain. Remote history of prior fall. Left leg pain. COMPARISON: X-ray lumbar spine dated 08/09/2018. TECHNIQUE: Multiplanar, multisequence imaging was obtained. FINDINGS: VERTEBRAL BODIES AND PARASPINAL STRUCTURES: There are exuberant sclerotic endplate changes and severe disc space narrowing with a mild retrosubluxation at the L4-L5 level. Mild endplate edematous changes in the lateralized to the right side at the L5-S1 level. Congenital narrowing of the spinal canal evident with foreshortening of the pedicles, most notably at the L3-L4 levels. Epidural fat prominence in the lumbosacral canal contributes to varying degrees of thecal sac distortion. There is mild endplate edema and a slight posterior subluxation at the L3-L4 level. Minimal endplate edematous changes present at the L2-L3 level. No compression fractures visible. The paraspinal soft tissues are normal. Although only partially visualized on the sagittal images, there is significant edema in the right lateral aspect of the T12 vertebral body. Additional right lateral paraspinal soft tissue edema is visible at the T11-T12 level. There is an incompletely visualized right lateral bridging endplate osteophyte at this level as well with marrow signal abnormality. CONUS MEDULLARIS AND CAUDA EQUINE: The distal cord, conus tip, and cauda equina nerve roots are normal. SPINAL LEVELS: L1-L2: Mild facet arthropathy and very mild disc bulge without central canal stenosis or significant foraminal narrowing. L2-L3: Broad-based central disc protrusion and underlying annular tear significantly distorts the thecal sac. Hypertrophic facet arthropathy and dorsal epidural fat prominence with moderate central canal stenosis. Moderate bilateral foraminal narrowing. L3-L4: Mild posterior subluxation and broad-based, shallow central disc protrusion with an underlying annular tear. Diffuse disc bulge and hypertrophic facet arthropathy with thickening of the ligamentum flavum. Moderate central canal stenosis. Epidural fat prominence contributes to severe thecal sac distortion. Moderate left and mild right foraminal narrowing. L4-L5: Severe chronic degenerative endplate changes and disc space narrowing with a posterior subluxation. Right paracentral disc protrusion superimposed upon a broad-based disc bulge and hypertrophic facet arthropathy. Dorsal epidural fat prominence also present. Moderate to severe central canal stenosis and thecal sac distortion with moderate bilateral foraminal narrowing. L5-S1: Broad-based disc bulge present with a right paracentral disc protrusion impinging upon the right S1 nerve root. Moderate facet arthropathy without central canal stenosis. Bulging disc and osseous spurring contribute to moderate to severe left foraminal encroachment and mild distortion of the exiting left L5 nerve root. Mild to moderate right foraminal narrowing. MR/MR lumbar spine wo con IMPRESSION: 1. 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 Additional epidural lipomatosis superimposed upon moderate spondylosis. 2. Broad-based central disc protrusion and underlying annular tear at the L2-L3 level with moderate central canal stenosis and moderate foraminal narrowing. Severe thecal sac compression. 3. Mild posterior subluxation and broad-based central disc protrusion at the L3-L4 level with moderate central canal stenosis and severe thecal sac distortion. Moderate left foraminal narrowing. Mild reactive endplate edematous changes lateralized to the right side. 4. Severe chronic degenerative disc disease at the L4-L5 level with a right paracentral disc protrusion and moderate to severe central canal stenosis. Moderate bilateral foraminal narrowing. 5. Right paracentral disc protrusion at the L5-S1 level impinges upon the right S1 nerve root. Moderate to severe left foraminal narrowing with mild distortion of the left L5 nerve root. Mild endplate edematous changes lateralized the right side. 6. Significant edema in the right lateral aspect of the T12 vertebral body and in the adjacent right lateral paraspinal soft tissues at the T11-T12 level. Signal abnormality in a bulky right lateral bridging endplate osteophyte as well; the possibility of a subacute injury at this level cannot be ruled out. If clinically indicated, a targeted CT study could be obtained in follow-up for further evaluation. Electronically signed by: Maurilio Buckner MD 10/31/2023 05:02 PM EDT
== END 2023-10-31 12:52 | disposition home or self-care (01) ==
LOC: HO.MRI 12:51
PROVIDERS: PCP Internal Medicine; Visit Provider Nurse Practitioner Family
DX: M48.061 Spinal stenosis, lumbar region without neurogenic claudication (principal); M54.16 Radiculopathy, lumbar region; M51.36 Other intervertebral disc degeneration, lumbar region; M47.817 Spondylosis without myelopathy or radiculopathy, lumbosacral region
CPT/HCPCS: 72110; 72148

== ENCOUNTER 2023-11-04 14:01 | Outpatient (AMB) | payer MEDICAID, SELFPAY ==
--- NOTE | 2023-11-04 14:02 | MHC.OFFVIS ---
Vital Signs 11/04/23 14:03 Height 5 ft 8 in Weight 273 lb BMI 41.5 Intake Visit Reasons: MRI results Intake Note: Pain today 06/04 Bread Dumper Required: No Accompanied by: Self / Same As Patient Allergies No Known Allergies [No Known Allergies*] Allergy (Verified 11/04/23 14:03) HPI Comments Details: Patient presents today via telehealth encounter to discuss recent lumbar spine MRI results. Patient reports progressively worsening low back pain with left leg numbness, burning, and intermittent weakness. Denies radicular symptoms on the right. Patient continues to work as he states he cannot afford to stop working due to financial concerns for his family. He recently stopped heavy lifting at work. Continues to take naproxen, OTC topicals, massages by family, heat therapy, resting and utilizing back support belt at work. Denies any fever, chills, foot drop, bladder or bowel dysfunction. Reports saddle anesthesia on the left. PRIOR: Patient is a 58 years old male with prior history of chronic low back pain with significant lumbar degenerative disc disease and lumbar spinal stenosis at L2-L3, morbid obesity, diabetes (A1C=6.3), ANGELA/CPAP presents today for initial evaluation for low back pain with radiation into bilateral hips and left posterior and anterior thigh with numbness and tingling. 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 He reports he almost fell but was able to support his body by holding on to wall. Patient reports he has been wearing back support brace with some relief. Denies previous physical therapy, spine surgery or injections. He was seen in [facility] in the past and completed MRI in 2019 as noted below. Patient also received cortisone knee injections at [facility] in 2019 and [facility] in 2021 with good results. Patient has been taking NSAIDs and muscle relaxant with minimal relief. He cannot pursue physical therapy at this time due to significant pain. He also reports he is the only income earner at home and cannot miss days at work. Pain affects his daily activities and functioning, mobility, work, sleep, mood, and social interactions. Denies any fever, abdominal or groin pain, bladder or bowel dysfunction or saddle anesthesia. Reports intermittent weakness in left lower extremity. Oswestry Low Back Disability Score=24 (moderate disability) Location: Lower back radiates into his hips, left thigh and LLE Duration: Chronic pain for many years, worsening for past 2 months Characteristics of symptom or complaint: Aching, radiating, cramping, shooting, numbness, tingling, sore, dull Aggravating or associated factors: Standing, prolonged sitting, walking, bending, lifting Relieving factors: Naproxen, warm showers, sitting, rest, activity modifications Treatment: Back brace, weight loss, walking PFSH Medical History Lumbar degenerative disc disease Lumbar spinal stenosis Other male erectile dysfunction Chronic midline low back pain without sciatica Hypertriglyceridemia Onychomycosis Bunion, right foot Alcoholism Male hypogonadism Tubular adenoma ANGELA on CPAP Morbid obesity Diabetes HTN (hypertension) Obese Social History (Updated 11/04/23 @ 19:01 by STEPHANIE Vaughan) Alcohol intake: current Alcohol intake frequency: 0-2 drinks per day Alcohol type: beer Patient Tobacco Use Status: Current everyday Tobacco user Cigarette Packs Per Day: 0.5 Cigarettes Per Day: 5 Current occupational status: employed Current occupation: right hand dominant Review of Systems Const All systems reviewed & are unremarkable except as noted in HPI and below ENT Reports Normal hearing present Neuro Reports Normal hearing present and Denies confusion Psych Denies confusion Physical Exam Vital Signs: BMI result Body Mass Index 41.5 Const General: cooperative, alert and awake; No confusion Orientation/consciousness: patient oriented x3 and No confusion Resp Effort & Inspection: able to speak in complete sentences, no audible wheezes and no cough Neuro General: patient oriented x3 and No confusion Cranial nerves: Yes Normal hearing present Cognition (Neuro): normal cognition Psych Mental Status: mental status grossly normal Speech and movement: Clear speech present Affect: normal affect Attitude: cooperative Thought process: Normal thought process present Thought content: Normal thought content present and No Depressive thoughts present Insight: Good insight present (Psych) Judgement: Good judgement present (Psych) Telehealth Telehealth Telehealth Platform: Telephone Location of provider rendering services: practice address Location of patient: address on file Patient Identification confirmed using: Name, : Yes Telehealth method: voice only Patient verbally consented to treatment: Yes Patient verbally consented to billing insurance company: Yes Patient informed of any privacy concerns related to visit: Yes Minutes spent on Phone/Video with Pt.: 16 Results Reviewed Results Reviewed: MR LUMBAR SPINE WITHOUT CONTRAST 10/31/23 CLINICAL INFORMATION: Low back pain. Remote history of prior fall. Left leg pain. COMPARISON: X-ray lumbar spine dated 08/09/2018. TECHNIQUE: Multiplanar, multisequence imaging was obtained. FINDINGS: VERTEBRAL BODIES AND PARASPINAL STRUCTURES: There are exuberant sclerotic endplate changes and severe disc space narrowing with a mild retrosubluxation at the L4-L5 level. Mild endplate edematous changes in the lateralized to the right side at the L5-S1 level. Congenital narrowing of the spinal canal evident with foreshortening of the pedicles, most notably at the L3-L4 levels. Epidural fat prominence in the lumbosacral canal contributes to varying degrees of thecal sac distortion. There is mild endplate edema and a slight posterior subluxation at the L3-L4 level. Minimal endplate edematous changes present at the L2-L3 level. No compression fractures visible. The paraspinal soft tissues are normal. Although only partially visualized on the sagittal images, there is significant edema in the right lateral aspect of the T12 vertebral body. Additional right lateral paraspinal soft tissue edema is visible at the T11-T12 level. There is an incompletely visualized right lateral bridging endplate osteophyte at this level as well with marrow signal abnormality. CONUS MEDULLARIS AND CAUDA EQUINE: The distal cord, conus tip, and cauda equina nerve roots are normal. SPINAL LEVELS: L1-L2: Mild facet arthropathy and very mild disc bulge without central canal stenosis or significant foraminal narrowing. L2-L3: Broad-based central disc protrusion and underlying annular tear significantly distorts the thecal sac. Hypertrophic facet arthropathy and dorsal epidural fat prominence with moderate central canal stenosis. Moderate bilateral foraminal narrowing. L3-L4: Mild posterior subluxation and broad-based, shallow central disc protrusion with an underlying annular tear. Diffuse disc bulge and hypertrophic facet arthropathy with thickening of the ligamentum flavum. Moderate central canal stenosis. Epidural fat prominence contributes to severe thecal sac distortion. Moderate left and mild right foraminal narrowing. L4-L5: Severe chronic degenerative endplate changes and disc space narrowing with a posterior subluxation. Right paracentral disc protrusion superimposed upon a broad-based disc bulge and hypertrophic facet arthropathy. Dorsal epidural fat prominence also present. Moderate to severe central canal stenosis and thecal sac distortion with moderate bilateral foraminal narrowing. L5-S1: Broad-based disc bulge present with a right paracentral disc protrusion impinging upon the right S1 nerve root. Moderate facet arthropathy without central canal stenosis. Bulging disc and osseous spurring contribute to moderate to severe left foraminal encroachment and mild distortion of the exiting left L5 nerve root. Mild to moderate right foraminal narrowing. IMPRESSION: 1. 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 Additional epidural lipomatosis superimposed upon moderate spondylosis. 2. Broad-based central disc protrusion and underlying annular tear at the L2-L3 level with moderate central canal stenosis and moderate foraminal narrowing. Severe thecal sac compression. 3. Mild posterior subluxation and broad-based central disc protrusion at the L3-L4 level with moderate central canal stenosis and severe thecal sac distortion. Moderate left foraminal narrowing. Mild reactive endplate edematous changes lateralized to the right side. 4. Severe chronic degenerative disc disease at the L4-L5 level with a right paracentral disc protrusion and moderate to severe central canal stenosis. Moderate bilateral foraminal narrowing. 5. Right paracentral disc protrusion at the L5-S1 level impinges upon the right S1 nerve root. Moderate to severe left foraminal narrowing with mild distortion of the left L5 nerve root. Mild endplate edematous changes lateralized the right side. 6. Significant edema in the right lateral aspect of the T12 vertebral body and in the adjacent right lateral paraspinal soft tissues at the T11-T12 level. Signal abnormality in a bulky right lateral bridging endplate osteophyte as well; the possibility of a subacute injury at this level cannot be ruled out. If clinically indicated, a targeted CT study could be obtained in follow-up for further evaluation. Assessment & Plan Assessment & Plan (1) Lumbosacral spondylosis: Code(s): M47.817 - Spondylosis without myelopathy or radiculopathy, lumbosacral region Category: Medical (2) Lumbar degenerative disc disease: Code(s): M51.36 - Other intervertebral disc degeneration, lumbar region Category: Medical (3) Lumbar back pain with radiculopathy affecting left lower extremity: Code(s): M54.16 - Radiculopathy, lumbar region Category: Medical (4) Lumbar spinal stenosis: Code(s): M48.061 - Spinal stenosis, lumbar region without neurogenic claudication Category: Medical Plan Lumbar spine imaging results are pending. MRI results were discussed with patient and consulted with our providers at [facility]. Plan for surgical evaluation, currently scheduled on 11/11/23. Patient is unable to tolerate physical therapy due to pain. Avoid heavy lifting, excessive bending or twisting at work or home. Patient is aware to call if pain worsens or if he develops any red flag symptoms to seek emergency care. All questions and concerns have been answered and patient agreed with the plan. Follow up after Neuro Spine evaluation and sooner as needed. I hereby testify that I spent 16 minutes in conversation with this patient as well as with planning and coordinating care for this patient and organizing this note. Coding Level of Care Code Tele Est Pt Level 4 (93563) Complex EM visit Add On G2211 Diagnoses Lumbosacral spondylosis M47.817 Lumbar degenerative disc disease M51.36 Lumbar back pain with radiculopathy affecting left lower extremity M54.16 Lumbar spinal stenosis M48.061
[2023-11-04 14:03] VITALS: BMI 41.5
== END 2023-11-04 14:19 | disposition home or self-care (01) ==
LOC: HO.PMC 14:01
PROVIDERS: PCP Internal Medicine; Visit Provider Nurse Practitioner Family
DX: M47.817 Spondylosis without myelopathy or radiculopathy, lumbosacral region (principal); M51.36 Other intervertebral disc degeneration, lumbar region; M54.16 Radiculopathy, lumbar region; M48.061 Spinal stenosis, lumbar region without neurogenic claudication
CPT/HCPCS: 99214

== ENCOUNTER → 2023-11-04 14:01 | Outpatient (BNVA) | payer MEDICAID, SELFPAY | PROVIDERS: PCP Internal Medicine; Visit Provider Nurse Practitioner Family ==

== ENCOUNTER 2023-11-11 13:39 | Outpatient (REF) | payer MEDICAID, SELFPAY | END 2023-11-11 13:40 | disposition home or self-care (01) | LOC: HO.HOSX 13:39 | PROVIDERS: PCP Internal Medicine; Visit Provider Physician Assistant | DX: M54.16 Radiculopathy, lumbar region (principal) | CPT/HCPCS: 99212 ==

== ENCOUNTER 2023-11-11 13:39 | Outpatient (AMB) | payer MEDICAID, SELFPAY ==
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
== END 2023-11-11 15:06 | disposition home or self-care (01) ==
PROVIDERS: PCP Internal Medicine; Referring Provider Nurse Practitioner Family; Visit Provider Physician Assistant
DX: M54.16 Radiculopathy, lumbar region (principal)
CPT/HCPCS: 99204

== ENCOUNTER 2023-11-28 13:14 | Outpatient (REF) | payer MEDICAID, SELFPAY ==
--- NOTE | ~2023-11-28 | XR_ITS ---
EXAMINATION: XR LUMBOSACRAL SPINE CLINICAL INFORMATION: Radiculopathy COMPARISON: Lumbar spine x-ray on 08/09/2018 TECHNIQUE: 4 views of the lumbar spine, inclusive of flexion and extension views, were obtained. FINDINGS: The lumbar spine maintains normal alignment. Vertebral body heights are maintained. There is multilevel loss of intervertebral disc space with endplate degenerative changes at L3-S1. There is facet arthropathy in the lower lumbar spine. Multiple calcified gallstones. XR/XR lumbar spine 4V min IMPRESSION: 1. Mild degenerative disease of the lumbar spine. 2. Cholelithiasis. Electronically signed by: Adrianne Main MD 12/04/2023 07:19 AM EDT RP
--- NOTE | ~2023-11-28 | CT_ITS ---
EXAMINATION: CT THORACIC SPINE WITHOUT CONTRAST CLINICAL INFORMATION: Radiculopathy COMPARISON: None available. TECHNIQUE: Noncontrast CT of the thoracic spine This CT examination was performed using dose optimization techniques as appropriate, variously including the following: *Automated exposure control *Adjustment of mA and/or kV according to patient size (this includes techniques or standardized protocols for targeted exams where dose is matched to indication/reason for exam; i.e. extremities or head) *Use of iterative reconstruction technique DLP: 1164 mGy-cm FINDINGS: Osseous Structures: There is normal alignment. There is no fracture. There multilevel degenerative changes with multiple anterior osteophytes. Scattered multilevel effacement of the ventral thecal sac. No canal narrowing. Cord: There is limited evaluation of the cord and intradural structures on non-contrast CT. Soft Tissues: Normal. There is no abnormal enhancement. Disc Spaces: There is no canal or neuroforaminal stenosis. CT/CT thoracic spine wo IV con IMPRESSION: Mild degenerative disease of the thoracic spine. Fleischner guidelines were followed. Electronically signed by: Adrianne Main MD 12/05/2023 03:12 PM EDT
[2023-11-28 15:50] LABS: Alanine Aminotransferase 19 U/L (0-40); Albumin Level 4.3 g/dL (3.5-5.0); Alkaline Phosphatase 72 U/L (39-117); Anion Gap 13 (12-20); Aspartate Amino Transferase 20 U/L (5-37); Bilirubin Total 0.7 mg/dL (0.0-1.0); Blood Urea Nitrogen 10 mg/dL (9-16); Calcium 10.1 mg/dL (8.4-10.2); Carbon Dioxide 34 mmol/L (22-29); Chloride 98 mmol/L (96-108); Estimated Glomerular Filt Rate > 60; Glucose Random 106 mg/dL (60-115); Sodium 142 mmol/L (135-145); Total Protein 7.9 g/dL (6.5-8.0)
[2023-11-28 16:01] LABS: Prostate Specific Antigen Scr 0.87 ng/mL (<0.05-4.0)
== END 2023-11-28 13:15 | disposition home or self-care (01) ==
LOC: HO.CT 13:14
PROVIDERS: PCP Internal Medicine; Visit Provider Physician Assistant
DX: M54.16 Radiculopathy, lumbar region (principal); I10 Essential (primary) hypertension; Z00.00 Encounter for general adult medical examination without abnormal findings
CPT/HCPCS: 36415; 72110; 72128; 80053; 84153

== ENCOUNTER 2023-11-29 07:19 | Day surgery (SDC) | payer MEDICAID, SELFPAY ==
[2023-11-29 08:06] VITALS: BMI 41.1
[2023-11-29 08:13] VITALS: BP 163/87; PULSE 78; RESP 16; TEMP 36.2; O2SAT 98
--- NOTE | 2023-11-29 08:25 | P.CONAN_ITS ---
Documented by User: Christa Navarro NP 11/28/23 11:55 HPI - Anesthesia Eval Consult details Narrative: 58yo M for Colonoscopy PMFSH Active Problems Active Problems: All Active Problems Lumbar spinal stenosis (Acute) Lumbar back pain with radiculopathy affecting left lower extremity (Acute) Lumbar degenerative disc disease (Acute) Lumbosacral spondylosis (Acute) Diabetes mellitus (Acute) Osteoarthritis of right knee (Acute) ANGELA on CPAP (Acute) Morbid obesity (Acute) Past Medical History Medical History (Updated 11/29/23 @ 08:06 by Maria Esther Villafana RN) Bilateral cataracts Lumbar spinal stenosis Lumbar degenerative disc disease Other male erectile dysfunction Chronic midline low back pain without sciatica Hypertriglyceridemia Onychomycosis Bunion, right foot Alcoholism Male hypogonadism Tubular adenoma ANGELA on CPAP Morbid obesity Diabetes HTN (hypertension) Obese Surgical History Surgical History (Updated 11/29/23 @ 08:05 by Maria Esther Villafana RN) History of surgery Social History Social History (Updated 11/04/23 @ 19:01 by STEPHANIE Vaughan) Alcohol intake: current Alcohol intake frequency: 0-2 drinks per day Alcohol type: beer Patient Tobacco Use Status: Current everyday Tobacco user Tobacco use type: Cigarette Cigarette Packs Per Day: 0.5 Cigarettes Per Day: 5 Use of substances other than those prescribed or required for medical reasons: No Are you DNR?: No Advance Directives: No Advance Directives Information Provided: Yes Advance Directives on File: No Recently lost weight without trying: No Poor oral hygiene: No Current occupational status: employed Current occupation: right hand dominant Meds Allergies Allergy/AdvReac Type Severity Reaction Status Date / Time No Known Allergies Allergy Verified 11/04/23 14:03 [No Known Allergies*] Home Medications ?Medication ?Instructions ?Recorded ?Confirmed ?Last Taken ?Type blood sugar diagnostic (FreeStyle #10 ea 01/15/22 Unknown History Lite Strips) chlorthalidone 50 mg tablet 50 mg PO DAILY 01/15/22 Unknown History clotrimazole 1 % topical cream appl topical 01/15/22 Unknown History metformin 500 mg tablet,extended 500 mg PO QPM 11/15/22 Unknown History release 24 hr bisacodyl 5 mg tablet,delayed 10 mg PO DIRECTED 08/27/23 Unknown History release fenofibrate nanocrystallized 48 mg 48 mg PO DAILY 08/27/23 Unknown History tablet polyethylene glycol 3350 17 g PO DAILY 08/27/23 Unknown History gram/dose oral powder tadalafil 10 mg tablet (Cialis) 10 mg PO DAILY PRN 08/27/23 Unknown History Assessment and Plan Assessment Anesthesia Assessment: Chart Reviewed Documented by User: Ann-Marie Robb DO 11/29/23 08:29 [facility] Past Medical History Medical History (Updated 11/29/23 @ 08:06 by Maria Esther Villafana RN) Bilateral cataracts Lumbar spinal stenosis Lumbar degenerative disc disease Other male erectile dysfunction Chronic midline low back pain without sciatica Hypertriglyceridemia Onychomycosis Bunion, right foot Alcoholism Male hypogonadism Tubular adenoma ANGELA on CPAP Morbid obesity Diabetes HTN (hypertension) Obese Family History Family history of problems with anesthesia: No Surgical History Surgical History (Updated 11/29/23 @ 08:05 by Maria Esther Villafana RN) History of surgery History of Problems with Anesthesia: No Social History Social History (Updated 11/04/23 @ 19:01 by STEPHANIE Vaughan) Alcohol intake: current Alcohol intake frequency: 0-2 drinks per day Alcohol type: beer Patient Tobacco Use Status: Current everyday Tobacco user Tobacco use type: Cigarette Cigarette Packs Per Day: 0.5 Cigarettes Per Day: 5 Use of substances other than those prescribed or required for medical reasons: No Are you DNR?: No Advance Directives: No Advance Directives Information Provided: Yes Advance Directives on File: No Recently lost weight without trying: No Poor oral hygiene: No Current occupational status: employed Current occupation: right hand dominant Meds Allergies Allergy/AdvReac Type Severity Reaction Status Date / Time No Known Allergies Allergy Verified 11/04/23 14:03 [No Known Allergies*] Home Medications ?Medication ?Instructions ?Recorded ?Confirmed ?Last Taken ?Type blood sugar diagnostic (FreeStyle #10 ea 01/15/22 Unknown History Lite Strips) chlorthalidone 50 mg tablet 50 mg PO DAILY 01/15/22 Unknown History clotrimazole 1 % topical cream appl topical 01/15/22 Unknown History metformin 500 mg tablet,extended 500 mg PO QPM 11/15/22 Unknown History release 24 hr bisacodyl 5 mg tablet,delayed 10 mg PO DIRECTED 08/27/23 Unknown History release fenofibrate nanocrystallized 48 mg 48 mg PO DAILY 08/27/23 Unknown History tablet polyethylene glycol 3350 17 g PO DAILY 08/27/23 Unknown History gram/dose oral powder tadalafil 10 mg tablet (Cialis) 10 mg PO DAILY PRN 08/27/23 Unknown History Exam Exam Date and Time: 11/29/23 0825 Height,Weight and Vital Signs: Height 5 ft 7 in Weight 118.955 kg Vital Signs Temperature 97.1 F 11/29/23 08:13 Pulse Rate 78 11/29/23 08:13 Respiratory Rate 16 11/29/23 08:13 Blood Pressure 163/87 H 11/29/23 08:13 Pulse Oximetry 98 11/29/23 08:13 Oxygen Delivery Method Room Air 11/29/23 08:13 Temperature 97.1 F 11/29/23 08:13 Pulse Rate 78 11/29/23 08:13 Respiratory Rate 16 11/29/23 08:13 Blood Pressure 163/87 H 11/29/23 08:13 Pulse Oximetry 98 11/29/23 08:13 Oxygen Delivery Method Room Air 11/29/23 08:13 Airway Mallampati Class: II TM Dist: >3cm Neck ROM: Full Loose/Missing/Broken Teeth: Yes (patient reports broken teeth wih crowns over it) Heart: S1S2 Lungs: CTAB Assessment and Plan Assessment Anesthesia Assessment: Anesthesia Plan Discussed and Chart Reviewed Final Anesthetic Review Family History of Problems with Anesthesia: No History of Problems with Anesthesia: No NPO: Yes ASA Class: III Final Preanesthetic Review: No Changes in Pt Med Stat, Meds/Allgs Chart Reviewed, Consent Obtained/Reviewed and Anes Risks/Benef Reviewed Patient Risk: Low Procedure Risk: Low Anesthetic Plan Anesthetic Plan: MAC: and Agree w/ Assess. and Plan Disposition: Standard PACU
[2023-11-29 08:37] LABS: Glucose, Whole Blood 141 mg/dL (60-115)
[2023-11-29 09:36] VITALS: BP 155/90; PULSE 71; RESP 16; TEMP 36.1; O2SAT 98
--- NOTE | 2023-11-29 09:39 | P.BOP_ITS ---
Brief Operative Note Date of Service: 11/29/23 Pre-op diagnosis: Screening Post-op diagnosis: other (Diverticulosis) Procedure: Colonoscopy to the cecum Surgeon: Elvis Wray MD Anesthesia: MAC Was an Decorating Equipment Setter used for this Procedure?: No Estimated blood loss (mL): 0 Pathology: none sent Condition: stable Disposition: PACU
[2023-11-29 09:51] VITALS: BP 165/84; PULSE 71; RESP 18; TEMP 36.1; O2SAT 97
--- NOTE | 2023-11-29 09:58 | OP_ITS ---
DATE OF SERVICE: 11/29/2023 SURGEON: Elvis Wray MD INDICATIONS: The patient presents for evaluation of colorectal cancer screening. Full consent was obtained from him for this, including risks of bleeding and perforation. PREOPERATIVE DIAGNOSIS: Colorectal cancer screening. POSTOPERATIVE DIAGNOSIS: Colorectal cancer screening, diverticulosis, internal hemorrhoids. PROCEDURE PERFORMED: Colonoscopy to the cecum. ESTIMATED BLOOD LOSS: COMPLICATIONS: ANESTHESIA: Monitored anesthesia care. ASSISTANTS: SPECIMENS: DESCRIPTION OF PROCEDURE: The patient was placed in the left lateral decubitus position. The digital rectal exam revealed no abnormalities. The Olympus video pediatric colonoscope was entered into the rectum and advanced easily to the cecum. Once in the cecum, I did identify normal-appearing cecal pouch with appendiceal orifice and a normal-appearing ileocecal valve. The entire cecum was well visualized and appeared normal. The ileocecal valve appeared normal. There was transillumination of light deep in the right lower quadrant. The scope was slowly withdrawn, assessing all mucosal surfaces carefully. Preparation was excellent. I did not visualize any sign of polyps, colitis, nor angiodysplasia. There was a mild amount of sigmoid diverticulosis. In the rectum, scope was retroflexed, visualizing internal hemorrhoids, but no other pathology. The rectal mucosa appeared normal. Scope was straightened and withdrawn from the patient. He tolerated the procedure well and was returned to the recovery area in stable condition. IMPRESSION: 1. Diverticulosis. 2. Internal hemorrhoids. PLAN: Given today's negative exam and a negative colonoscopy in 2013 with no family history of colon cancer, I would typically recommend a followup colonoscopy in 10 years. However, according to his history, does have a previous colonoscopy with removal of a tubular adenoma in the past. Therefore, I would keep him in a 5 year plan for repeat colonoscopy. He will otherwise see me on a p.r.n. basis. MD CHASTITY Marquez/LAYA / [phone]
--- NOTE | 2023-11-29 10:12 | PC.NURSE ---
all discharge instructions completed by soni green.
== END 2023-11-29 10:05 | disposition home or self-care (01) ==
PROVIDERS: PCP Internal Medicine; Visit Provider Internal Medicine
PROC: 0DJD8ZZ Inspection of Lower Intestinal Tract, Via Natural or Artificial Opening Endoscopic (ICD-10-PCS; CPT 45378; principal; 2023-11-29 08:30)
DX: Z12.11 Encounter for screening for malignant neoplasm of colon (principal); K57.30 Diverticulosis of large intestine without perforation or abscess without bleeding; K64.8 Other hemorrhoids; Z86.0101 Personal history of adenomatous and serrated colon polyps; E11.9 Type 2 diabetes mellitus without complications; I10 Essential (primary) hypertension; G47.33 Obstructive sleep apnea (adult) (pediatric); Z99.89 Dependence on other enabling machines and devices; Z79.84 Long term (current) use of oral hypoglycemic drugs; Z79.899 Other long term (current) drug therapy; F17.210 Nicotine dependence, cigarettes, uncomplicated
CPT/HCPCS: 45378; 82947; J2003; J2704

== ENCOUNTER 2023-12-02 14:07 | Outpatient (AMB) | payer MEDICAID, SELFPAY ==
--- NOTE | 2023-12-02 14:11 | HO.SPINEOV ---
Intake Visit Reasons: CT follow up Intake Note: Mr. Sarthak Cortes is here today to F/u on the results to his CT Scan. Director Talent Acquisition Required: No Allergies No Known Allergies [No Known Allergies*] Allergy (Verified 12/02/23 14:28) Assessment & Plan Assessment & Plan (1) Lumbar back pain with radiculopathy affecting left lower extremity: Code(s): M54.16 - Radiculopathy, lumbar region Category: Medical Plan Mr Sarthak Cortes is following up in the office today. Please see my previous note for the specifics of his problem. Had the CT of the thoracic spine done at [facility] as well as his flexion-extension x-rays done at [place] [facility]. I sat down review all his imaging with him again. The primary complaint he has is the pain that goes down his legs with standing and walking. He does have a component of back pain but he understands that he has multiple reasons on his lumbar spine x-ray to have this and that he could generally just treat this with naproxen as needed. He has no instability on flexion extension imaging. If we could offer him something to help with the leg pains it would make his work situation life situation much more manageable. I told him that I think the L2-3 is where the majority of symptoms are coming from as it is significantly stenotic. I will review the imaging with Dr. Ramachandran and get back to the patient with a final surgical plan but we did briefly discuss laminectomy and what that would involve. His A1c was 7. He is otherwise medically stable and I do not see a reason he could not have surgery. Once I talked to Dr. Ramachandran I will get back to him. With regard to the CT of the c thoracic spine, I looked at the T11-12 area that was described by the radiologist on the MRI imaging and I do not see any evidence of destructive bony lesions or soft tissue disruption, osteomyelitis or anything that would raise concern. Obviously I will wait to see what the radiologist final evaluation is. Total amount of time spent in this visit was 20 minutes in discussion of symptoms, thoracic CT, lumbar MRI and lumbar x-rays imaging results and subsequent plan of care Jasen Ramachandran MD,PhD [facility] Coding Level of Care Code Est Pt Level 3 (99721) Diagnoses Lumbar back pain with radiculopathy affecting left lower extremity M54.16
== END 2023-12-02 15:37 | disposition home or self-care (01) ==
PROVIDERS: PCP Internal Medicine; Visit Provider Physician Assistant
DX: M54.16 Radiculopathy, lumbar region (principal)
CPT/HCPCS: 99213

== ENCOUNTER → 2023-12-02 14:07 | Outpatient (BNVA) | payer MEDICAID, SELFPAY | PROVIDERS: PCP Internal Medicine; Visit Provider Physician Assistant | DX: M54.16 Radiculopathy, lumbar region (principal) | CPT/HCPCS: 99212 ==

== ENCOUNTER 2023-12-14 09:36 | Outpatient (REF) | payer MEDICAID, SELFPAY ==
[2023-12-14 11:49] LABS: Anion Gap 13 (12-20); Blood Urea Nitrogen 9 mg/dL (9-16); Calcium 9.4 mg/dL (8.4-10.2); Carbon Dioxide 33 mmol/L (22-29); Chloride 99 mmol/L (96-108); Estimated Glomerular Filt Rate > 60; Glucose Random 111 mg/dL (60-115); Potassium 4.1 mmol/L (3.3-5.1); Sodium 141 mmol/L (135-145)
== END 2023-12-14 09:37 | disposition home or self-care (01) ==
LOC: HO.LAB 09:36
PROVIDERS: PCP Internal Medicine; Visit Provider Internal Medicine
DX: E87.6 Hypokalemia (principal)
CPT/HCPCS: 36415; 80048

== ENCOUNTER 2024-02-06 06:42 | Day surgery (SDC) | payer MEDICAID, SELFPAY ==
[2024-01-21 07:19] VITALS: BMI 42.3
--- NOTE | 2024-01-21 13:11 | P.CONAN_ITS ---
Documented by User: Christa Navarro NP 02/04/24 13:35 HPI - Anesthesia Eval Consult details Narrative: 59yo M for L2-3 Bilateral Lumbar Decompression (left sided approach) s/p [place] 11/2023 with MAC PMFSH Active Problems Active Problems: All Active Problems Lumbar back pain with radiculopathy affecting left lower extremity (Acute) Lumbosacral spondylosis (Acute) Diabetes mellitus (Acute) Osteoarthritis of right knee (Acute) Lumbar spinal stenosis (Acute) Lumbar degenerative disc disease (Acute) ANGELA on CPAP (Acute) Morbid obesity (Acute) Past Medical History Medical History Bilateral cataracts Lumbar spinal stenosis Lumbar degenerative disc disease Other male erectile dysfunction Chronic midline low back pain without sciatica Hypertriglyceridemia Onychomycosis Bunion, right foot Alcoholism Male hypogonadism Tubular adenoma ANGELA on CPAP Morbid obesity Diabetes HTN (hypertension) Obese Family History Family history of problems with anesthesia: No Surgical History Surgical History H/O colonoscopy History of bilateral cataract extraction History of surgery History of Problems with Anesthesia: No Social History Social History (Updated 11/04/23 @ 19:01 by STEPHANIE Vaughan) Are you a primary healthcare project manager to a significant other at home: No Do you presently have visiting nurse or other home services: No Alcohol intake: current Alcohol intake frequency: a few times a week Alcohol type: beer Patient Tobacco Use Status: Current everyday Tobacco user Tobacco use type: Cigarette Cigarette Packs Per Day: 0.5 Cigarettes Per Day: 5 Use of substances other than those prescribed or required for medical reasons: No Have you been hit, kicked, punched, or otherwise hurt by someone within the past year? If so, by whom?: No Are you DNR?: No Advance Directives: No Advance Directives Information Provided: Yes Advance Directives on File: No Recently lost weight without trying: No Eating poorly because of decreased appetite: No Nutrition Risks: No Nutritional Risk Poor oral hygiene: Yes (upper crown) Current occupational status: employed Current occupation: right hand dominant Meds Allergies Allergy/AdvReac Type Severity Reaction Status Date / Time No Known Allergies Allergy Verified 02/06/24 07:17 [No Known Allergies*] Home Medications ?Medication ?Instructions ?Recorded ?Confirmed ?Last Taken ?Type blood sugar diagnostic ([facility] 01/15/22 Unknown History Lite Strips) chlorthalidone 50 mg tablet 50 mg PO DAILY 01/15/22 01/21/24 02/06/24 History clotrimazole 1 % topical cream 1 appl topical DAILY PRN Skin 01/15/22 01/21/24 Unknown History Irritation metformin 500 mg tablet,extended 500 mg PO QAM 11/15/22 01/21/24 Unknown History release 24 hr fenofibrate nanocrystallized 48 mg 48 mg PO DAILY 08/27/23 01/21/24 02/06/24 History tablet Exam Height,Weight and Vital Signs: Height 5 ft 7 in Weight 122.47 kg Pertinent Lab Results Pertinent Lab Results: Laboratory Tests 12/14/23 10:05 Sodium 141 Chloride 99 Carbon Dioxide 33 H BUN 9 Creatinine 0.74 Assessment and Plan Assessment Anesthesia Assessment: Chart Reviewed Final Anesthetic Review Family History of Problems with Anesthesia: No History of Problems with Anesthesia: No Documented by User: Kvng Ruiz MD 02/06/24 08:04 [facility] Past Medical History Medical History Bilateral cataracts Lumbar spinal stenosis Lumbar degenerative disc disease Other male erectile dysfunction Chronic midline low back pain without sciatica Hypertriglyceridemia Onychomycosis Bunion, right foot Alcoholism Male hypogonadism Tubular adenoma ANGELA on CPAP Morbid obesity Diabetes HTN (hypertension) Obese Surgical History Surgical History H/O colonoscopy History of bilateral cataract extraction History of surgery Social History Social History (Updated 11/04/23 @ 19:01 by STEPHANIE Vaughan) Are you a primary healthcare project manager to a significant other at home: No Do you presently have visiting nurse or other home services: No Alcohol intake: current Alcohol intake frequency: a few times a week Alcohol type: beer Patient Tobacco Use Status: Current everyday Tobacco user Tobacco use type: Cigarette Cigarette Packs Per Day: 0.5 Cigarettes Per Day: 5 Use of substances other than those prescribed or required for medical reasons: No Have you been hit, kicked, punched, or otherwise hurt by someone within the past year? If so, by whom?: No Are you DNR?: No Advance Directives: No Advance Directives Information Provided: Yes Advance Directives on File: No Recently lost weight without trying: No Eating poorly because of decreased appetite: No Nutrition Risks: No Nutritional Risk Poor oral hygiene: Yes (upper crown) Current occupational status: employed Current occupation: right hand dominant Meds Allergies Allergy/AdvReac Type Severity Reaction Status Date / Time No Known Allergies Allergy Verified 02/06/24 07:17 [No Known Allergies*] Home Medications ?Medication ?Instructions ?Recorded ?Confirmed ?Last Taken ?Type blood sugar diagnostic (FreeStyle #10 ea 01/15/22 Unknown History Lite Strips) chlorthalidone 50 mg tablet 50 mg PO DAILY 01/15/22 01/21/24 02/06/24 History clotrimazole 1 % topical cream 1 appl topical DAILY PRN Skin 01/15/22 01/21/24 Unknown History Irritation metformin 500 mg tablet,extended 500 mg PO QAM 11/15/22 01/21/24 Unknown History release 24 hr fenofibrate nanocrystallized 48 mg 48 mg PO DAILY 08/27/23 01/21/24 02/06/24 His tory tablet Exam Airway Mallampati Class: III TM Dist: >3cm Neck ROM: Full Assessment and Plan Assessment Anesthesia Assessment: Anesthesia Plan Discussed Final Anesthetic Review NPO: Yes ASA Class: III Final Preanesthetic Review: No Changes in Pt Med Stat, Meds/Allgs Chart Reviewed, Consent Obtained/Reviewed, Anes Risks/Benef Reviewed and DNR Form (If Appl.) Patient Risk: Intermediate Procedure Risk: Intermediate Anesthetic Plan Anesthetic Plan: GA Disposition: Standard PACU
[2024-02-06] VITALS (12 sets, daily range): BP systolic 143–183; BP diastolic 77–95; PULSE 63–85; RESP 13–18; TEMP 36.1–36.8; O2SAT 93–100; BMI 42.0
--- NOTE | 2024-02-06 06:46 | ECG_ITS ---
Test Reason : DM, ANGELA Blood Pressure : / mmHG Vent. Rate : 075 BPM Atrial Rate : 075 BPM P-R Int : 148 ms QRS Dur : 096 ms QT Int : 402 ms P-R-T Axes : 058 036 054 degrees QTc Int : 448 ms Normal sinus rhythm Normal ECG When compared with ECG of 03-OCT-2020 19:57, No significant change was found Referred By: Christa Navarro Electronically Signed By:JURGEN CORRAL MD
--- NOTE | 2024-02-06 07:04 | P.HPSUR_ITS ---
Pre-Procedural Eval Section A - 24 Hr Update-Section A only Date of Service: 02/06/24 The patient is an INPATIENT: No Changes since office visit: No Cold of Flu in the past 2 weeks, No New Medical Problems, No Changes in Medication and No Patient answered all questions The patient has been examined within 24 hours of the surgical procedure. The History & Physical has been completed within 30 days and I have reviewed it.: No Section B - Complete if H&P > 30 days Chief Complaint: Radiculopathy, lumbar region Allergies: Allergies Allergy/AdvReac Type Severity Reaction Status Date / Time No Known Allergies Allergy Verified 12/02/23 14:28 [No Known Allergies*] Review of Systems Sugical H&P ROS: Negative: Constitution, Cardiovascular, Respiratory, Neurological, Psychiatric, Hem-Onc, Allergic/Immunologic, Gastrointestinal, Genitourinary, Musculoskeletal, Integumentary, Endocrine and Eyes/Ears/No se/Throat Exam Surgical H&P Exam: Normal: HEENT, Normal: Heart, Normal: Lungs, Normal: Extremities, Normal: Abdomen, Normal: Skin and Normal: Neurological (awake, alert,oriented x 3 ) Plan Diagnosis/Plan: Unchanged left sided unilateral approach for L2-3 bilateral decompression Time Spent With Patient Time: Total time managing care of this patient today __5__ minutes.
--- NOTE | 2024-02-06 07:05 | PM.DS ---
DS: Providers Provider Date of Service: 02/06/24 Date of discharge: 02/06/24 Primary care physician: Kyaw Bains MD Admitting clinician: Tim Ramachandran DS: Diagnosis Discharge Diagnosis (1) Lumbar back pain with radiculopathy affecting left lower extremity: Status: Acute DS: Summary Time Attestation Discharge Coordination Time (in mins): 5 Quality: Safe Use of Opioids Does Pt have an Active Cancer Diagnosis on the Problem List?: No Quality: Stroke Does the patient have a stroke diagnosis?: No Physical Exam Vital Signs: Vital Signs: BMI result Body Mass Index 42.3 Discharge Plan Discharge Patient Disposition: Home, Self-Care Referrals: Kyaw Bains MD [Primary Care Provider] - 1 Week Discharge Medications: New docusate sodium [Colace] 100 mg capsule 100 mg PO BID Qty: 20 0RF oxycodone 5 mg tablet 5 mg PO Q4H PRN (Reason: pain) Qty: 20 0RF Rx Instructions: Partial Fill upon patient request. Continued (DME) FreeStyle Lite Strips Strip See Rx Instructions .ROUTE DAILY Qty: 10 Rx Instructions: As directed clotrimazole 1 % cream 1 appl topical DAILY PRN (Reason: Skin Irritation) chlorthalidone 50 mg tablet 50 mg PO DAILY metformin 500 mg tablet extended release 24 hr 500 mg PO QAM fenofibrate nanocrystallized 48 mg tablet 48 mg PO DAILY naproxen 500 mg tablet 500 mg PO BID 60 Days Qty: 120 0RF Discharge Orders: Discharge Order (Routine); Ordered 02/06/24 Ordered By: Jasen Luu Diet: Advance to usual diet Activity on Discharge: As tolerated Activity Restrictions/Additional Instructions: After your spinal surgery we ask you to observe the following restrictions/guidelines: Activity: It is normal to feel some discomfort as you increase your activity, but that will improve with time. We ask you avoid heavy lifting or acitivities that cause pain. As a general rule, 8lbs is a safe limit for lifting right after surgery. Walk as much as you feel comfortable but not to exhaustion. You will feel extra tired the first few days after surgery. Stay well hydrated. It is OK to walk up and down stairs You may return to driving when you are off narcotics (such as vicodin, oxycodone, dilaudid, etc), and you are back to normal functional capacity. If you have any concerns please check with office before driving. Return to work is specific to each patient and each surgery, so please speak with your doctor/PA at first follow up. Please bring paperwork such as FMLA at that time if you need it filled out. Medications: For optimum pain control, it is best to start with a combination of 500 mg of Tylenol every 4 hours with 600 mg of Motrin every 8 hours, and use narcotics as needed in between for breakthrough pain. We will give you a short supply of narcotics after surgery (usually one weeks worth). If you need more please call the office but do not use more than prescribed. You will need to give our office 48 hours notice if you need narcotics refilled and we do not fill narcotics on weekends or evenings. If you are on a narcotic, it is a good idea to take a stool softener such as colace or senna to avoid constipation If you take blood thinner such as aspirin, Plavix, Coumadin, Effient, Eliquis etc for conditions such as Afib, DVT, Pulmonary embolus, coronary disease, stents etc please speak with your surgeon about specific details as to when you can resume these medications. You can resume NSAIDs on post op day 1 (eg: Motrin, Naproxen, etc). Follow up: Please call the office, , after surgery to arrange a 3 week follow up for wound check. Wound Care: You may remove your dressing on the first day after surgery. ?You may ?leave open to air. Please do not remove the steri strips underneath. they will fall off on their own in one week. IT IS NORMAL FOR THE WOUND TO OOZE OR BE BLOODY FOR A FEW DAYS AFTER SURGERY. ?IF THIS HAPPENS JUST PLACE NEW DRESSING OVER IT TO AVOID STAINING CLOTHES. You may shower on post op day # 1 We ask that you do not let the water soak the wound. If it does get wet, just towel dry lightly. Please do not scrub your incision or place any type of chemical/ointment on the wound. No tub baths, pools or jacuzzis for one month. If you have any leaking or redness from your wound, or fevers, please call office Print Language: Latvian
[2024-02-06] MEDS: Lactated Ringers 1,000 ML 100 ML IVCONT (07:18)
[2024-02-06 07:43] LABS: Glucose, Whole Blood 121 mg/dL (60-115)
[2024-02-06] MEDS: methocarbamoL 750 MG TABLET PO (08:11)
[2024-02-06] MEDS: Gabapentin 300 MG CAPSULE PO (08:11)
--- NOTE | 2024-02-06 09:53 | P.OP_ITS ---
Operative Note Operative Note Date of Service: 02/06/24 Narrative: Preoperative Diagnosis: L2-3 spinal stenosis/lateral recess stenosis/neural foraminal stenosis Operation: L2-3 Laminotomy, Partial facetectomy and foraminotomy with use of microscope Consent Informed Consent was obtained for this operation. I have explained the nature, purpose and benefits of the operation. I have discussed the risks and benefit of the operation including possible complications or adverse events with patient/family. Alternative(s) were discussed with the patient with their relative benefits and risks as well as the consequences of not accepting the operation were included in obtaining consent. Surgeon: CODI DICK MD, PHD Procedure Assisted By: Jasen Smith Description of Procedure This 59-year-old male suffering from neurogenic claudication due to L2-3 spinal stenosis. The patient was offered a decompression. The procedure complications were explained. The patient was consented. The patient was brought to the operating room and endotracheally intubated. The patient was turned in prone position on the Agusto frame. Prep and drape was done followed by timeout. The Physician assistant professor of economics provided access. A mid lumbar incision was made followed by release of the paravertebral muscle on the left side to expose the L2-3 lamina and facet joints. An intraoperative x-ray was obtained to confirm the correct level. The microscope was brought in. I took over the procedure. The high-speed drill was used to do a L2-3 laminotomy until flavum ligament was reached. A #2 Kerrison was used to expand the laminotomy near flush to the pedicles and to include a partial facetectomy. The flavum ligament was opened and resected with a #3 Kerrison to decompress the underlying thecal sac. The flavum ligament was removed to decompress the lateral recess and the exiting L3 nerve root. A long nerve hook could be easily passed along the medial side of the pedicles as a sign of adequate decompression. The patient was turned contralaterally. The spinous process was undercut after which the thecal sac was decompressed contralaterally as well as the lateral recess. A nerve hook could be passed along the nerve root without resistance. The microscope was removed. Hemostasis was done. The physician assistant professor of economics close the incision in 2 layers. Steri-Strips were used to approximate incision. An OpSite with Tegaderm was used to cover the incision. All sponge needle counts were correct. Patient was extubated and transported in stable is to recovery room. Anesthesia: General Estimated Blood Loss (ml): 35 mL Complications: None Duration of Surgery: Under 60 Minutes Postoperative Plan: Discharge to home
[2024-02-06] MEDS: fentaNYL citrate/PF 100 MCG/2 ML VIAL 50 MCG IVPUSH ×2 (10:34→10:43)
== END 2024-02-06 11:43 | disposition home or self-care (01) ==
PROVIDERS: PCP Internal Medicine; Visit Provider Neurological Surgery
PROC: (CPT 63047; principal; 2024-02-06 09:00)
DX: M54.16 Radiculopathy, lumbar region (principal); M48.061 Spinal stenosis, lumbar region without neurogenic claudication; G47.33 Obstructive sleep apnea (adult) (pediatric); M17.11 Unilateral primary osteoarthritis, right knee; I10 Essential (primary) hypertension; E11.9 Type 2 diabetes mellitus without complications; E66.01 Morbid (severe) obesity due to excess calories; Z79.84 Long term (current) use of oral hypoglycemic drugs; Z79.899 Other long term (current) drug therapy; Z99.89 Dependence on other enabling machines and devices; Z98.890 Other specified postprocedural states; F10.20 Alcohol dependence, uncomplicated; F17.210 Nicotine dependence, cigarettes, uncomplicated
CPT/HCPCS: 63047; 82947; 93005; J0131; J0690; J1100; J1596; J2003; J2250; J2405; J2704; J3010

== ENCOUNTER → 2024-02-06 06:42 | Outpatient (BNV) | payer MEDICAID, SELFPAY | PROVIDERS: PCP Internal Medicine; Visit Provider Neurological Surgery | DX: M48.062 Spinal stenosis, lumbar region with neurogenic claudication (principal); M54.16 Radiculopathy, lumbar region | CPT/HCPCS: 63047; 99499 ==

== ENCOUNTER → 2024-02-06 06:46 | Outpatient (BNV) | payer MEDICAID, SELFPAY | PROVIDERS: PCP Internal Medicine; Visit Provider Internal Medicine Cardiovascular Disease | DX: G47.33 Obstructive sleep apnea (adult) (pediatric) (principal); E11.9 Type 2 diabetes mellitus without complications | CPT/HCPCS: 93010 ==

== ENCOUNTER 2024-02-27 09:12 | Outpatient (AMB) | payer MEDICAID, SELFPAY ==
--- NOTE | 2024-02-27 09:17 | HO.SPINEOV ---
Intake Visit Reasons: 1st post op Intake Note: Mr. Sarthak Cortes is here today for his 1st post op. Vocational Placement Specialist Required: No Allergies No Known Allergies [No Known Allergies*] Allergy (Verified 02/06/24 07:17) Assessment & Plan Assessment & Plan (1) Status post lumbar spine surgery for decompression of spinal cord: Code(s): Z98.890 - Other specified postprocedural states Category: Surgical Plan Operation: L2-3 Laminotomy, Partial facetectomy and foraminotomy Mirtha comes in today for his 1st post-operative visit. To recap he was initially seen in clinic for low back pain and a burning sensation he gets in his legs when he is walking. He reports that he is very satisfied with the surgery and has no concerns regarding this. He has been ambulating well, is taking only naproxen, and states that the pertinent sensation in his legs has subsided. He did have some left-sided shooting pains down the lateral aspect of his leg for the 1st few days after surgery, but states this also has resolved. No new neurological deficits. The patient ambulates well and rises from a seated position without difficulty. His posterior incision site is clean, dry, well healing. I would like to follow up with him again in 6 weeks to ensure that he continues to heal well from his surgery. Nomi Ramachandran MD,PhD [facility] Coding Level of Care Code Global (74360) Diagnoses Status post lumbar spine surgery for decompression of spinal cord Z98.890
== END 2024-02-27 10:01 | disposition home or self-care (01) ==
PROVIDERS: PCP Internal Medicine; Visit Provider Physician Assistant
DX: Z98.890 Other specified postprocedural states (principal)
CPT/HCPCS: 99024

== ENCOUNTER → 2024-02-27 09:12 | Outpatient (BNVA) | payer MEDICAID, SELFPAY | PROVIDERS: PCP Internal Medicine; Visit Provider Physician Assistant | DX: Z48.89 Encounter for other specified surgical aftercare (principal); Z98.890 Other specified postprocedural states | CPT/HCPCS: 99212 ==

== ENCOUNTER → 2024-04-01 09:38 | Outpatient (BNVA) | payer MEDICAID, SELFPAY | PROVIDERS: PCP Internal Medicine; Visit Provider Internal Medicine | DX: G47.33 Obstructive sleep apnea (adult) (pediatric) (principal); E66.01 Morbid (severe) obesity due to excess calories; F17.210 Nicotine dependence, cigarettes, uncomplicated; Z68.42 Body mass index [BMI] 45.0-49.9, adult; Z99.89 Dependence on other enabling machines and devices | CPT/HCPCS: 99212 ==

== ENCOUNTER 2024-04-15 09:15 | Outpatient (AMB) | payer MEDICAID, SELFPAY ==
--- NOTE | 2024-04-09 09:15 | HO.SPINEOV ---
Intake Visit Reasons: 2nd post op Allergies No Known Allergies [No Known Allergies*] Allergy (Verified 04/01/24 10:27) Assessment & Plan Assessment & Plan Plan Procedure: L2-3 Laminotomy, Partial facetectomy and foraminotomy Mirtha comes in today for his 1st postoperative visit. He reports he is very satisfied with the surgery and feels much better than he did preoperatively. The patient reports he is up walking around and completing the majority of his ADLs. He reports that he no longer suffers from his left-sided hip / low back pain. No new neurological deficits. Patient is able to ambulate well, rises from a seated position without difficulty. Incision sites are closed, well healing, with no signs of drainage. We will follow-up with the patient in 6 weeks for their 2nd postoperative visit. At that time we will get x-rays to review with the patient. Nomi Ramachandran MD,PhD [facility] Coding
--- OUTSIDE RECORDS SUMMARY | 2024-04-15 09:27 | XMS_ITS | Encounter Summary ---
Author Organization [employer] Address [address] [place] [address] Care Team Providers Care Sap Basis Administrator Name Role Phone Kyaw Nicole MD Primary Care Provide r Encounter Details Date Type Department Care Team (Late Contact Info) Description 02/06/2024 Orders Only [facility] External Provider, [facility] Social History Tobacco Use Types Packs/Day Years Used Date Smoking Tobacco: Every Day Cigarettes Passive Smoke Exposure: Current Smokeless Tobacco: Never Alcohol Use Standard Drinks/Week Comments Yes 0 (1 standard drink = 0.6 oz pur e alcohol) Depression Answer Date Recorded Patient Health Questionnaire-9 Score 0 11/26/2023 Patient Health Questionnaire-9 Score 0 11/26/2023 Last PHQ-9: Questionnaire Data Not on file 1 Housing Stability Answer Date Recorded What is your housing situation today? I have sammie diamond 12/31/[address] you li ve. Do you have problems with any of the following? None of the above 12/31/2022 Food Insecurity Answer Date Recorded Within the past 12 months, y ou worried that your food would run out before you got money to buy more: Never True 12/31/2022 Within the past 12 months,th e food you bought just didn't last and you didn't have enough money to get more: Never True 07/2022 Transportation Answer Date Recorded In the past 12 months, has l ack of transportation kept you from medical appts, meetings, work or from getting things needed for daily living? No 12/31/2022 Utilities Answer Date Recorded In the past 12 months, has t he electric, gas, oil or water [employer] threatened to shut off services in your home? No 12/31/2022 Depression Answer Date Recorded Patient Health Questionnaire-2 Score 0 11/26/2023 Internet Access Answer Date Recorded Internet Access Q1 Yes 11/19/2023 Internet Access Q2 Not on file 11/19/2023 Sex and Gender Information Value Date Recorded Sex Assigned at Male 12/25/2021 10:16 AM EDT Legal Sex Male 10:16 AM EDT Gender Identity Male 12/25/2021 10:16 AM EDT Sexual Orientation Choose not to disclose 2021 10:16 AM EDT documented as of this encounter Plan of Treatment Not on file documented as of this encounter Procedures Procedure Name Priority Date/Time Associated Diagnosis Comments FL GUIDANCE IN OR Routine 02/06/2024 8:4 7 AM EST documented in this encounter Results * FL Guidance in OR (02/06/2024 8:47 AM EST) Anatomical Region Laterality Modality X-Ray Angiograph y 02/06/2024 8:47 AM EST Narrative 03/26/2024 7:34 AM EST ? [facility] ?[address] ?[place] [address] ? Fluoroscopy Report ? Signed ? Patient: Mirtha Johnson ?MR ?? #: [id number] ? : 1965 ?Acct:[id number] ? Age/Sex: 59 / M ?ADM Date: 02/06/24 ? Loc: HO.SSS ? Attending Dr: Tim Ramachandran MD, PhD ? Ordering Physician: Tim Ramachandran MD, PhD ?? Date of Service: 02/06/24 ?? Procedure(s): FL guidance in OR ?? Accession Number(s): [id number] ? cc: Kyaw Bains MD; Tim Ramachandran MD, PhD ? EXAMINATION: ?? FLUORO GUIDANCE IN OR ? CLINICAL INFORMATION: ?? L2-L3 lumbar decompression. ? COMPARISON: ?? None available. ? TECHNIQUE: ?? Fluoroscopy supervised by: Dr. Tim Ramachandran. ?? Fluoroscopy time: 0.1 minutes. ?? Cumulative Dose: 6.41 mGy. ?? DAP: 1.17 Gy-cm2 (escobar-centimeter squared). ?? Images: 3. ? FINDINGS: ?? 3 images demonstrate surgical probes at the L2-L3 interspace. ? FL/FL guidance in OR ?? IMPRESSION: ?? Fluoroscopy during procedure. Please see procedure report for ?? additional information. ? Electronically signed by: ??Nomi Paige MD ??03/26/2024 07:32 AM EST ?? RP ? Dictated By: ?Nomi Paige MD ? Signed By: ?<Electronically signed by Nomi Paige MD in OV> ? 03/26/24 0732 ? DD/ 0847 ? TD/TT: 02/06/24 0932 ? Substance Abuse Nurse: SS ? Procedure Note Donmistyter, Image - 03/26/2024 [place] [address] Fluoroscopy Report Signed Patient: Mirtha Johnson JMR #: [id number] : 1965Acct:[id number] Age/Sex: 59 / MADM Date: 02/06/24 Loc: [facility] Attending Dr: Tim Ramachandran MD, PhD Ordering Physician: Tim Ramachandran MD, PhD Date of Service: 02/06/24 Procedure(s): FL guidance in OR Accession Number(s): [id number] cc: Kyaw Bains MD; Tim Ramachandran MD, PhD EXAMINATION: FLUORO GUIDANCE IN OR CLINICAL INFORMATION: L2-L3 lumbar decompression. COMPARISON: None available. TECHNIQUE: Fluoroscopy supervised by: Dr. Tim Ramachandran. Fluoroscopy time: 0.1 minutes. Cumulative Dose: 6.41 mGy. DAP: 1.17 Gy-cm2 (escobar-centimeter squared). Images: 3. FINDINGS: 3 images demonstrate surgical probes at the L2-L3 interspace. FL/FL guidance in OR IMPRESSION: Fluoroscopy during procedure. Please see procedure report for additional information. Electronically signed by: Nomi Paige MD 03/26/2024 07:32 AM EST Dictated By: Nomi Paige MD Signed By: <Electronically signed by Nomi Paige MD in OV> 03/26/24 0732 DD/ 0847 TD/TT: 02/06/24 0932 Substance Abuse Nurse: KIMBERLY [facility] External Provider IMG IR PROCEDURES Edited Result - Final documented in this encounter Visit Diagnoses Not on filedocumented in this encounter Additional Health Concerns Assessment Noted Time PHQ-9 Depression Total Score: 0 11/26/19 24 2:40 PM EDT documented as of this encounter Care Teams Sap Basis Administrator Relationship Specialty Start Date End Date Kyaw Nicole MD [address] [place] [id number] PCP - General Internal Medicine 01/30/18 documented as of this encounter
--- OUTSIDE RECORDS SUMMARY | 2024-04-15 09:27 | XMS_ITS | Patient Health Record ---
Author Organization [facility] Address [address] [place] [address] Support Name Relationship Address Phone CELSO MATTA Emergency Contact [address] [place], [place] [phone] TAMI MCKEE Guarantor Unknown [phone] Care Team Providers Care Referral And Information Aide Name Role Phone Bere Forrest MD, Kyaw Primary Care Provide r Unavailable Elvis Wray Unavailable [phone] ALLERGIES No Known Allergies RESULTS Component Value Reference Range Notes Glucose, Whole Blood Reviewed date:11/29/2023 04:20:25 PM Interpretation: Performing Lab:[facility], [address] [place] [id number] Notes/Report: Glucose, Whole Blood 141 60-115 mg/dL METER # : [id number] REASON FOR REFERRAL Referring Provider First Name Kyaw Referring Provider Last Name Bere vela Referring Provider Speciality Internal M edicine Referred Organization [facility] Referred Provider Elvis Wray Referred Address [address] [place] [address],[place] [address] [place] [phone], Referred Provider Specialty Gastroentero logy Referral Priority Routine MEDICATIONS Medication SIG (Take, Route, Frequency, Duration) Notes Start Date End Date Status metFORMIN HCl ER 500 MG TAKE 1 TABLET BY MOUTH EVERY DAY WITH THE EVENING MEAL Oral for 90 Active Chlorthalidone 50 MG Oral for 90 Active Fenofibrate 48 MG 1 tablet Orally Once a day for 30 day(s) Active MiraLax (colon prep) 17 GM/SCOOP 1 238 Gm bottle mixed with Gatorade or Crystal Light Orally begin at 5:00 p.m. the day before the procedure for 1 day 08/10/2023 Active Clotrimazole 1 % External for 28 Active Dulcolax (colon prep) 5 MG take at 3:00 p.m and 7:00p.m. Orally two tablets twice a day for one day for 1 day 08/10/2023 Active Naproxen 500 MG TAKE 1 TABLET BY JOHN TH WITH BREAKFAST AND EVENING MEAL Oral for 15 Active SOCIAL HISTORY Tobacco Use: Social History Observation Description Date Details (start date - stop date) Current Smoker NA - NA Sex Assigned At : Social History Observation Description Sex Assigned At Unknown Tobacco Use/Smoking Question Answer Notes Patient is a current smoker How often do you smoke cigarettes? every day How many cigarettes a day do you smoke? 5 or les s How soon after you wake up do you smoke your fir st cigarette? after 60 minutes Alcohol Screen Question Answer Notes Did you have a drink contain ing alcohol in the past year? Yes How often did you have a dri nk containing alcohol in the past year? 4 or more times a week (4 points) How many drinks did you have on a typical day when you were drinking in the past year? 5 or 6 drinks (2 points) Points 6 Interpretation Positive PROBLEMS Problem Type ICD Code Onset Dates Problem Status W/U Status Risk SNOMED Code Notes Problem Colon cancer screening (Z12.11) Active confirmed Colon can cer screening (437256127) Problem History of colon polyps (Z86.010) Active confirmed History of polyp of colon (759347678) Problem Preprocedural examination (Z01.818) Active confirmed Preprocedural examination (967810791424933 ) Problem Diverticulosis of large intestine without perforation or abscess without bleeding (K57.30) Active confirmed Diverticul ar disease of colon (845156085) VITAL SIGNS Blood pressure diastolic 00 mm Hg 08/07/2023 Height 57 in 08/07/2023 Blood pressure systolic 00 mm Hg 08/07/2023 Weight 273 lbs 08/07/2023 BMI 59.07 kg/m2 08/07/2023 Encounters Encounter Location Date Provider Diagnosis [facility] Outpatient [address] [place] [phone] 11/29/2023 Elvis Wray Colon cancer screeni ng Z12.11 ; Personal history of colonic polyps Z86.0100 ; Diverticulosis of large intestine without perforation or abscess without bleeding K57.30 and Other hemorrhoids K64.8 [facility] [address] [place] [address] 08/07/2023 Elvis Wray Colon cancer screeni ng Z12.11 ; Preprocedural examination Z01.818 and History of colon polyps Z86.010 [facility] [address] [place] [address] 08/07/2023 Elvis Wray ASSESSMENTS Encounter Date Diagnosis Assessment Notes Treatment Notes Treatment Clinical Notes 11/29/2023 Colon cancer screening (ICD-10 - Z12.11) 11/29/2023 Personal history of colonic polyps (ICD-10 - Z86.0100) 08/07/2023 Colon cancer screening (ICD-10 - Z12.11) Do not take the Chlorthalidone the day before or on the day of the colonoscopy Do not take the Metformin the day before nor on the day of the colonoscopy Stop Naproxen for 1 week before the colonoscopy 08/07/2023 Preprocedural examination (ICD-10 - Z01.818) 11/29/2023 Diverticulosis of large intestine without perforation or abscess without bleeding (ICD-10 - K57.30) 08/07/2023 History of colon polyps (ICD-10 - Z86.010) 11/29/2023 Other hemorrhoids (ICD-10 - K64.8) PLAN OF TREATMENT Future Test Test Name Order Date COLONOSCOPY 08/07/2023 Insurance Providers Payer Name Payer Address Payer Phone Subscriber Number Group Number Insured Name Patient Relationship to Insured Coverage Start Date Coverage End Date MEDICAID OF [place] [address] [place] [phone] [id number] TAMI MCKEE Self - patient is the insured MEDICAL (GENERAL) HISTORY Medical History History ICD Code NIDDM Hypertension Sleep apnea/cpap Hypertriglyceridemia Tubular adenoma--last colono scopy approximately 2017, and his first colonoscopy was in approximately 2012 Denies MS,DM,CVA,Lung disease,renal dise ase Surgical History Surgery Date(Month/Year) hand surgery as child left leg veins
--- OUTSIDE RECORDS SUMMARY | 2024-04-15 09:27 | XMS_ITS ---
Author Organization [facility] Address [address] [place] [address] Care Team Providers Care Residential Real Estate Sales Manager Name Role Phone Bere Forrest MD, Kyaw Primary Care Provide r Elvis Ayoub Unavailable [phone] REASON FOR VISIT screening, hx polyps PROBLEMS Problem Type ICD Code Onset Dates Problem Status W/U Status Risk SNOMED Code Notes Problem Diverticulosis of large intestine without perforation or abscess without bleeding (K57.30) Active confirmed Diverticul ar disease of colon (563382588) Encounters Encounter Location Date Provider Diagnosis [facility] Outpatient [address] [place], [place] [phone] 11/29/2023 Elvis Wray Colon cancer scree nelson Z12.11 ; Personal history of colonic polyps Z86.0100 ; Diverticulosis of large intestine without perforation or abscess without bleeding K57.30 and Other hemorrhoids K64.8 ASSESSMENTS Encounter Date Diagnosis Assessment Notes Treatment Notes Treatment Clinical Notes 11/29/2023 Colon cancer screening (ICD-10 - Z12.11) 11/29/2023 Personal history of colonic polyps (ICD-10 - Z86.0100) 11/29/2023 Diverticulosis of large intestine without perforation or abscess without bleeding (ICD-10 - K57.30) 11/29/2023 Other hemorrhoids (ICD-10 - K64.8) PLAN OF TREATMENT No Information
--- OUTSIDE RECORDS SUMMARY | 2024-04-15 09:27 | XMS_ITS ---
Demographics Address [address] [place] [address] Email Address Preferred Language en Marital Status Unknown Hoahaoism Affiliation Unknown Race or A l[place] [employer] Additional Race(s) Ak Chin Ethnic Group or Author Organization [facility] Address [address] [place] [phone] Support Name Relationship Address Phone CELSO MATTA Emergency Contact [address] [place], [place] [phone] TAMI MCKEE Guarantor Unknown Care Team Providers Care Delivery Professional Name Role Phone Bere Forrest MD, Kyaw Primary Care Provide Elvis Morris [phone] REASON FOR VISIT bowel prep MEDICATIONS Medication SIG (Take, Route, Frequency, Duration) Notes Start Date End Date Status MiraLax (colon prep) 17 GM/SCOOP 1 238 Gm bottle mixed with Gatorade or Crystal Light Orally begin at 5:00 p.m. the day before the procedure for 1 day 08/10/2023 Active Dulcolax (colon prep) 5 MG take at 3:00 p.m and 7:00p.m. Orally two tablets twice a day for one day for 1 day 08/10/2023 Active Encounters Encounter Location Date Provider Diagnosis [facility] [address] [place] [phone] 08/07/2023 Elvis Wray PLAN OF TREATMENT Medication Medication Name Sig Start Date Stop Date Notes MiraLax (colon prep) 17 GM/SCOOP 1 238 Gm bottle mixed with Gatorade or Crystal Light Orally begin at 5:00 p.m. the day before the procedure for 1 day 08/10/2023 Dulcolax (colon prep) 5 MG take at 3:00 p.m and 7:00p.m. Orally two tablets twice a day for one day for 1 day 08/10/2023
--- OUTSIDE RECORDS SUMMARY | 2024-04-15 09:28 | XMS_ITS | Encounter Summary ---
Author Organization [facility] Address [address] [place] [address] Care Team Providers Care Senior Landscape Architect Name Role Phone Kyaw Nicole MD Primary Care Provide r Reason for Visit * Reason Comments Med Refill Encounter Details Date Type Department Care Team (Late st Contact Info) Description 08/22/2022 Refill [facility] [address], [place] [phone] Kyaw Nicole MD [address] [place] [address] Social History Tobacco Use Types Packs/Day Years Used Date Smoking Tobacco: Never Assessed Sex and Gender Information Value Date Recorded Sex Assigned at Male 12/25/2021 10:16 AM EDT Legal Sex Male 10:16 AM EDT Gender Identity Male 12/25/2021 10:16 AM EDT Sexual Orientation Choose not to disclose 2021 10:16 AM EDT documented as of this encounter Plan of Treatment Not on file documented as of this encounter Visit Diagnoses Not on filedocumented in this encounter Care Teams Senior Landscape Architect Relationship Specialty Start Date End Date Kyaw Nicole MD [address], [place] [phone] PCP - General Internal Medicine 01/30/18 documented as of this encounter
--- OUTSIDE RECORDS SUMMARY | 2024-04-15 09:28 | XMS_ITS | Clinical Summary ---
Author Organization [employer] Address [address] [place] [address] Care Team Providers Care Grinder Set Up Operator Centerless Name Role Phone Kyaw Nicole MD Primary Care Provide r Allergies No known active allergies Medications naproxen (Naprosyn) 500 MG tabletIndication s:Pain Take 1 tablet (500 mg) by mouth with breakfast and with evening meal. 60 tablet 1 3 Active fenofibrate (Tricor) 48 MG tabletIndication s:Hypertriglycer idemia Take 1 tablet (48 mg) by mouth Once per day. 30 tablet 6 4 Active tadalafil (Cialis) 10 MG tabletIndication s:Other male erectile dysfunction Take 1 tablet (10 mg) by mouth if needed each day for erectile dysfunction. 10 tablet 6 4 Active clotrimazole (Lotrimin) 1 % cream APPLY EXTERNALLY TO THE AFFECTED AREA AND SURROUNDING AREAS OF SKIN TWICE DAILY(MORNING AND EVENING) 60 g 6 4 Active chlorthalidone (Hygroton) 50 MG tabletIndication s:Essential hypertension TAKE 1 TABLET(50 MG) BY MOUTH IN THE MORNING 90 tablet 1 5 Active metFORMIN XR (Glucophage-XR) 500 MG 24 hr tabletIndication s:Type 2 diabetes mellitus without complication, without long-term current use of insulin (CMS/HCC) TAKE 1 TABLET BY MOUTH EVERY DAY WITH THE EVENING MEAL 90 tablet 1 5 Active Active Problems Problem Noted Date Diagnosed Date Chronic midline low back pain without sciatica 0 08/06/2023 Assessment & Plan (11/26/2023 2:57 PM EDT): Pt is here for a f/u Used to be under the care of [facility] Had been using NSAIDS and Muscle relaxant [facility] recommended MRI MRI 12/23/2018 showed Lumbar canal congenital diminutive with superimposed multilevel degenerative changes. Most pronounced at L2-3 where there is moderate canal stenosis. Severe degenerative disc disease also seen at L4-L5 Using NSAIDS with mild benefit Repeat MRI 10/31/2023 showed: MPRESSION: 1. 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 Additional epidural lipomatosis superimposed upon moderate spondylosis. 2. Broad-based central disc protrusion and underlying annular tear at the L2-L3 level with moderate central canal stenosis and moderate foraminal narrowing. Severe thecal sac compression. 3. Mild posterior subluxation and broad-based central disc protrusion at the L3-L4 level with moderate central canal stenosis and severe thecal sac distortion. Moderate left foraminal narrowing. Mild reactive endplate edematous changes lateralized to the right side. 4. Severe chronic degenerative disc disease at the L4-L5 level with a right paracentral disc protrusion and moderate to severe central canal stenosis. Moderate bilateral foraminal narrowing. 5. Right paracentral disc protrusion at the L5-S1 level impinges upon the right S1 nerve root. Moderate to severe left foraminal narrowing with mild distortion of the left L5 nerve root. Mild endplate edematous changes lateralized the right side. 6. Significant edema in the right lateral aspect of the T12 vertebral body and in the adjacent right lateral paraspinal soft tissues at the T11-T12 level. Signal abnormality in a bulky right lateral bridging endplate osteophyte as well; the possibility of a subacute injury at this level cannot be ruled out. If clinically indicated, a targeted CT study could be obtained in follow-up for further evaluation. Patient was referred to [facility] Dr. Ramachandran. Seen at his office 11/11/2023 and they recommended to obtain CT first and pending on that further recommendations Assessment & Plan (08/06/2023 4:18 PM EDT): Pt is here for a f/u Used to be under the care of [facility] Had been using NSAIDS and Muscle relaxant [facility] recommended MRI MRI 12/23/2018 showed Lumbar canal congenital diminutive with superimposed multilevel degenerative changes. Most pronounced at L2-3 where there is moderate canal stenosis. Severe degenerative disc disease also seen at L4-L5 Using NSAIDS with mild benefit Plan: Will refer to [facility] Pain management clinic Other male erectile dysfunction 08/06/2023 Assessment & Plan (08/06/2023 2:46 PM EDT): Obtain Testosterone free and total Trial of Cialis Hypertriglyceridemia 03/26/2023 Assessment & Plan (08/06/2023 12:21 PM EDT): Lipid profile 01/07/2023 showed: Triglycerides <150 mg/dL 330 High 191 R, CM Comment: Desirable Triglyceride: less than 150 mg/dLBorderline High Triglyceride 150-199 mg/dLHigh Triglyceride: 200-499 mg/dLVery High Triglyceride: greater than or equal to 5OO mg/dL Cholesterol <200 mg/dL 178 188 R, CM Comment: Desirable Cholesterol: less than 200 mg/dLBorderline High Cholesterol: 200-239 mg/dLHigh Cholesterol: greater than 239 mg/dL LDL Cholesterol Calculated <100 mg/dL 68 97 R, CM Comment: Desirable LDL: less than 100 mg/dLNear Optimal/Above Optimal LDL: 110- 129 mg/dLBorderline High LDL: 130-159 mg/dLHigh LDL: 160-189 mg/dLVery High LDL: greater than or equal to 190 mg/dL HDL Cholesterol >40 mg/dL 44 53 R, CM Pt tried diet, exercise and lifestyle changes with no good results Started on Fenofibrate 48 mg po daily last visit Plan: repeat Lipid profile Assessment & Plan (03/26/2023 9:12 AM EST): Lipid profile 01/07/2023 showed: Triglycerides <150 mg/dL 330??High?? 191 R, CM Comment: Desirable Triglyceride: ? less than 150 mg/dLBorderline High Triglyceride ??150-199 mg/dLHigh Triglyceride: ?200-499 mg/dLVery High Triglyceride: ? greater than or equal to ?5OO mg/dL Cholesterol <200 mg/dL 178 188 R, CM Comment: Desirable Cholesterol: ?less than 200 mg/dLBorderline High Cholesterol: ??200-239 mg/dLHigh Cholesterol: ? greater than 239 mg/dL LDL Cholesterol Calculated <100 mg/dL 68 97 R, CM Comment: Desirable LDL: ? less than 100 mg/dLNear Optimal/Above Optimal LDL: ??110-129 mg/dLBorderline High LDL: ? 130-159 mg/dLHigh LDL: ?160-189 mg/dLVery High LDL: ? greater than or equal to ? 190 mg/dL HDL Cholesterol >40 mg/dL 44 53 R, CM Plan: Pt has tried diet, exercise and lifestyle changes with no good results Start Fenofibrate 48 mg po daily Alcoholism 11/22/2022 Assessment & Plan (11/22/2022 3:00 PM EDT): Pt drinking 4 x week on a daily basis approximately 6 beers per day., this is half of what it used to be Pt not interested in seeking help at the moment Pt states he will control on his own. Preventative health care 11/22/2022 Assessment & Plan (11/26/2023 3:02 PM EDT): SONIA: Declined PSA 05/20/2021 Normal, will repeat Colonoscopy: last colonoscopy showed diverticulosis only 06/2013, will refer back to GI for repeat Assessment & Plan (03/26/2023 9:07 AM EST): SONIA: Declined PSA 05/20/2021 Normal Colonoscopy: last colonoscopy showed diverticulosis only 06/2013 Assessment & Plan (11/22/2022 2:54 PM EDT): SONIA: Declined PSA 05/20/2021 Normal Colonoscopy: last colonoscopy showed diverticulosis only 06/2013 Bunion of right foot 11/22/2022 Assessment & Plan (11/26/2023 3:08 PM EDT): Patient evaluated by podiatry, pt not satisfied with conservative management from Podiatry. The pain in his foot is debilitating and interferes with his job, unable to wear proper foot attire as a result. He would like a second opinion by orthopaedic specialist in the event a surgical intervention is necessary. 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 Microalbumin 04/2021 16.5 He is on a regimen of Metformin ER 500 mg po daily Foot check today is risk of: zero Plan: Continue Metformin ER 500mg po daily f/u 4 months Pt advised to: adhere to diabetic diet check your blood sugars regularly check your feet on a daily basis Assessment & Plan (08/06/2023 2:39 PM EDT): Pt here for Diabetes f/u Hgb A1c 08/06/2023: 6.3 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 Microalbumin 04/2021 16.5 He is on a regimen of Metformin ER 500 mg po daily Foot check today is risk of: zero Plan: Continue Metformin ER 500mg po daily f/u 4 months Pt advised to: adhere to diabetic diet check your blood sugars regularly check your feet on a daily basis Assessment & Plan (03/26/2023 9:19 AM EST): Pt here for Diabetes f/u Hgb A1c 03/26/2023: 6.1 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 Microalbumin 04/2021 16.5 He is on a regimen of Metformin ER 500 mg po daily Foot check today is risk of: zero Plan: Continue Metformin ER 500mg po daily f/u 4 months Pt advised to: adhere to diabetic diet check your blood sugars regularly check your feet on a daily basis Assessment & Plan (11/22/2022 2:55 PM EDT): Pt here for Diabetes f/u Hgb A1c 11/22/2022: 5.7 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 Microalbumin 04/2021 16.5 He is on a regimen of Metformin ER 500 mg po daily Foot check today is risk of: zero Plan: Continue Metformin ER 500mg po daily f/u 4 months Pt advised to: adhere to diabetic diet check your blood sugars regularly check your feet on a daily basis Male hypogonadism 03/18/2018 Assessment & Plan (11/22/2022 2:52 PM EDT): Last note from Endocrinology 04/06/2019 Dr Bender mentions on her note that MRI of his pituitary was within normal limits and that his hypogonadism had resolved with the use of CPAP Essential hypertension 03/31/2015 Assessment & Plan (11/26/2023 3:00 PM EDT): Patient here for a f/u BP controlled on a regimen of: chlorthalidone 50 mg po daily Given adequate blood pressure control will continue with current medical regimen. Most recent electrolytes, Bun and Creatinine done on: 01/07/2023 wnl patient advised to adhere to a low sodium diet, encouraged about medication compliance, counseled about weight loss. Repeat BMP Assessment & Plan (08/06/2023 12:20 PM EDT): Patient here for a f/u BP controlled on a regimen of: chlorthalidone 50 mg po daily Given adequate blood pressure control will continue with current medical regimen. Most recent electrolytes, Bun and Creatinine done on: 01/07/2023 wnl patient advised to adhere to a low sodium diet, encouraged about medication compliance, counseled about weight loss. Assessment & Plan (03/26/2023 9:06 AM EST): Patient here for a f/u BP controlled on a regimen of: chlorthalidone 50 mg po daily Given adequate blood pressure control will continue with current medical regimen. Most recent electrolytes, Bun and Creatinine done on: 01/07/2023 wnl patient advised to adhere to a low sodium diet, encouraged about medication compliance, counseled about weight loss. Assessment & Plan (11/22/2022 2:48 PM EDT): Patient here for a f/u BP currently controlled on a regimen of: chlorthalidone 50 mg po daily Given adequate blood pressure control will continue with current medical regimen. Most recent electrolytes, Bun and Creatinine done on: 01/27/2022 wnl patient advised to adhere to a low sodium diet, encouraged about medication compliance, counseled about weight loss. Morbid obesity 11/15/2011 Assessment & Plan (08/06/2023 12:22 PM EDT): Pt counseled and educated about diet and exercise Pt was referred to the weight management treatment center at [facility] previously pt declines to consider surgical interventions Assessment & Plan (11/22/2022 2:49 PM EDT): Pt counseled and educated about diet and exercise Pt was referred to the weight management treatment center at [facility] previously pt declines to consider surgical interventions Obstructive sleep apnea syndrome 11/15/2011 Assessment & Plan (11/22/2022 2:59 PM EDT): Pt reports using his Cpap machine with good results, last note by Dr Radford 05/09/2022 but pt tells me he was seen recently again Smoker 11/15/2011 Tubular adenoma 11/15/2011 Assessment & Plan (11/26/2023 3:12 PM EDT): last colonoscopy showed diverticulosis only 06/2013 Patient has appointment with GI Saturday, already scheduled for it. Assessment & Plan (03/26/2023 9:07 AM EST): last colonoscopy showed diverticulosis only 06/2013 Encounters Date Type Department Care Team Description 03/02/2024 Refill [facility] [address] [place] [address] Kyaw Nicole MD Essential hypertension; Type 2 diabetes mellitus without complication, without long-term current use of insulin ([facility]); Hypokalemia 02/06/2024 Orders Only [facility] External Provider, [facility] 02/03/2024 Telephone [facility] [address] [place] [address] Kyaw Nicole MD Febraury Recall from Last 3 Months Immunizations Name Administration Dates Next Due Hep B, adult 02/23/2016,05/18/2015,03/31/2015 Influenza injectable quadriv alent IIV4 with preservative 11/11/2018,11/15/2016,11/10/2015,03/31 Influenza injectable quadriv alent preservative free 11/22/2022,12/12/2021,03/02/2021,02/21,02/11/2018 Influenza, Split (incl. vic fied surface antigen) 04/08/2013,11/15/2011 Influenza, seasonal, injecta ble, preservative free 11/26/2023 Pfizer Covid-19 Vaccine 12+ Bivalent 03/20/2022 Pneumococcal Polysaccharide PPSV23 01/02/2011 TD (adult), 2 Lf tetanus tox oid, preservative free, adsorbed 07/06/2011,10/24/2001 Tdap 03/14/2020,11/15/2016 Zoster, Recombinant 10/10/2021,08/01/2021 Social History Tobacco Use Types Packs/Day Years Used Date Smoking Tobacco: Every Day Cigarettes Passive Smoke Exposure: Current Smokeless Tobacco: Never Tobacco Cessation:Ready to Q uit: Not Asked; Counseling Given: Not Answered Alcohol Use Standard Drinks/Week Comments Yes 0 (1 standard drink = 0.6 oz pur e alcohol) Depression Answer Date Recorded Patient Health Questionnaire-9 Score 0 11/26/2023 Patient Health Questionnaire-9 Score 0 11/26/2023 Last PHQ-9: Questionnaire Data Not on file 1 Housing Stability Answer Date Recorded What is your housing situation today? I have [employer] 12/31/[address] you li [...] t he electric, gas, oil or water company threatened to shut off services in your [...] not to disclose 2021 10:16 AM EDT Last Filed Vital Signs Vital Sign Reading Time Taken Comments Blood Pressure 141/82 11/26/2023 3:09 PM EDT Pulse 90 11/26/2023 2:40 PM EDT Temperature 36.4 ??C (97.6 ??F) 11/26/2023 2:40 PM ED T Respiratory Rate 20 11/26/2023 2:40 PM EDT Oxygen Saturation 98% 11/26/2023 2:40 PM EDT Inhaled Oxygen Concentration - - Weight 120 kg (265 lb) 11/26/2023 2:40 PM EDT Height 170.2 cm (5' 7 ) 11/26/2023 2:40 PM EDT Body Mass Index 41.5 11/26/2023 2:40 PM EDT Plan of Treatment Health Maintenance Due Date Last Done Comments CT Colonography 1966 Dental Prophylaxis 1966 FIT DNA/Cologuard 1966 FIT 1966 FOBT 1966 HIV Screening 1965 Sigmoidoscopy 1966 Diabetes: Foot Exam 01/02/1976 Eye Exam 01/02/1976 Alcohol/Substance Use Screening 1978 Pneumococcal Vaccine: 50+ Years (2 of 2 - PCV) 01/03/2012 01/02/2011 Dental Oral Exam 03/25/2021 09/21/2020, 10/2019, 11/21/2016 Dental X-Ray: Bitewings 09/22/2021 09/22/19 21, 05/04/2019, 11/21/2016 Diabetes: Urine Protein Screening 05/20/2022 05/20/2021 Dental X-Ray: Full Mouth 09/23/2023 09/21/2020, 10/27 COVID-19 Vaccine ( season) 2023 03/20/2022 Diabetes: Hemoglobin A1C 05/26/2024 024, 08/06/2023, 03/26/2023, Additional history exists Lipid Panel 08/30/2024 08/31/2023, 12/26, 01/27/2022 Depression Screening 11/25/2024 11/26/2023, 11/26/19 24 SDOH Screening 11/25/2024 11/26/2023 Tobacco Screening 11/25/2024 11/26/2023 Colonoscopy 11/28/2028 11/29/2023, 06/29/2013 Colorectal Cancer Screening 11/28/2028 DTaP/Tdap/Td Vaccines (3 - Td or Tdap) 03/14/2030 03/14/2020, 11/15/2016, 07/06/2011, Additional history exists RSV Patients and Patients Aged 60 years or older (1 - 1-dose 75+ series) 2041 Hepatitis B Vaccines Completed 02/23/2016, 05/18/2015, 03/31/2015 Hepatitis C Screening Completed 05/20/2021 Zoster Vaccines Completed 10/10/2021, 08/01/2021 Influenza Vaccine Completed 11/26/2023, , 12/12/2021, Additional history exists HIB Vaccines Aged Out No longer eligi ble based on patient's age to complete this topic HPV Vaccines Aged Out No longer eligi ble based on patient's age to complete this topic Hepatitis A Vaccines Aged Out No long er eligible based on patient's age to complete this topic IPV Vaccines Aged Out No longer eligi ble based on patient's age to complete this topic Meningococcal Vaccine Aged Out No zaid jada eligible based on patient's age to complete this topic RSV under 20 months Aged Out No longe r eligible based on patient's age to complete this topic Rotavirus Vaccines Aged Out No longer eligible based on patient's age to complete this topic Procedures Procedure Name Priority Date/Time Associated Diagnosis Comments FL GUIDANCE IN OR Routine 02/06/2024 8:4 7 AM EST GLUCOSE, WHOLE BLOOD Routine 02/06/2024 7:40 AM EST HM COLONOSCOPY Routine 11/29/2023 POCT GLYCATED HEMOGLOBIN, TOTAL Routine 11/26/2023 2:43 PM EDT Type 2 diabetes mellitus without complication, without long-term current use of insulin ([facility]) LIPID PANEL, STANDARD Routine 08/31/2023 7:47 AM EDT Hypertriglyceridemi a ZZZ HISTORICAL HEPATITIS C ANTIBODY RFLX Routine 05/20/2021 9:06 AM EDT ZZZ HISTORICAL MICROALBUMIN/CREATINI NE RATIO, RANDOM URINE Routine 05/20/2021 9:00 AM EDT INTRAORAL - COMPLETE SERIES OF RADIOGRAPHIC IMAGES Routine 09/21/2020 12:00 AM EDT PERIODIC ORAL EVALUATION - ESTABLISHED PATIENT Routine 09/21/2020 12:00 AM EDT from Last 3 Months or Most Recently Relevant to Health Maintenance Results * FL Guidance in OR (02/06/2024 8:47 AM EST) Anatomical Region Laterality Modality X-Ray Angiograph y 02/06/2024 8:47 AM EST Narrative 03/26/2024 7:34 AM EST ? [facility] ?[address] ?[place] [address] ? Fluoroscopy Report ? Signed ? Patient: Sarthak Cortes,Mirtha J ?MR ?? #: [id number] ? : 1965 ?Acct:[id number] ? Age/Sex: 59 / M ?ADM Date: 02/06/24 ? Loc: HO.SSS ? Attending Dr: Tim Ramachandran MD, PhD ? Ordering Physician: Tim Ramachandran MD, PhD ?? Date of Service: 02/06/24 ?? Procedure(s): FL guidance in OR ?? Accession Number(s): [id number] ? cc: Kyaw Bains MD; Tim Ramachandran [...] ??Nomi Paige MD ??03/26/2024 07:32 AM EST ? Dictated By: ?Nomi Paige MD ? Signed By: ?<Electronically signed by Nomi Paige MD in OV> ? 03/26/24 0732 ? DD/ 0847 ? TD/TT: 02/06/24 0932 ? Television And Radio Repairer: SS ? Procedure Note Kole, Evangelina - 03/26/[address] [address] Fluoroscopy Report Signed Patient: Sarthak CortesMirtha JMR #: [id number] : 1965Acct:[id number] Age/Sex: 59 / MADM Date: 02/06/24 Loc: HO.SSS Attending Dr: Tim Ramachandran MD, PhD Ordering Physician: Tim Ramachandran MD, PhD Date of Service: 02/06/24 Procedure(s): FL guidance in OR Accession Number(s): [id number] cc: Kyaw Bains MD; Tim Ramachandran MD, [...] 03/26/24 0732 DD/ 0847 TD/TT: 02/06/24 0932 Television And Radio Repairer: SS us [facility] External Provider IMG IR PROCEDURES Edited Result - Final * (ABNORMAL) Glucose, Whole Blood (02/06/2024 7:40 AM EST) Glucose, Whole Blood 121(H) 60 - 115 mg/dL [facility] Comment:METER #: [id number] 02/06/2024 7:40 AM EST 02/06/2024 7:43 AM EST Generic External Data Provider LAB BLOOD ORDERAB LES Final Result [facility] [address] [place] [phone] * Hm Colonoscopy (11/29/2023) Colonoscopy Normal Normal Comment:Dr. Wray [facility] Provider HEALTH MAINTENANCE Final Result * POCT HGB A1C (11/26/2023 2:43 PM EDT) Hemoglobin A1C 6.0 4.0 - 6.0 % QC Media Lot # [id number] Lot# Expiration Date Blood 11/26/2023 2:43 PM EDT Kyaw Forrest MD POINT OF CARE TEST EN TER/EDIT ORDERABLES Final Result * (ABNORMAL) Lipid Panel, Standard (08/31/2023 7:47 AM EDT) Triglycerides 191(H) <150 mg/dL [facility] Comment:Desirable Triglyceri de: less than 150 mg/dLBorderline High Triglyceride 150-199 mg/dLHigh Triglyceride: 200-499 mg/dLVery High Triglyceride: greater than or equal to 5OO mg/dL Cholesterol 182 <200 mg/dL [facility] Comment:Desirable Cholestero l: less than 200 mg/dLBorderline High Cholesterol: 200-239 mg/dLHigh Cholesterol: greater than 239 mg/dL LDL Cholesterol Calculated 97 <100 mg/dL [facility] Comment:Desirable LDL: less than 100 mg/dLNear Optimal/Above Optimal LDL: 110- 129 mg/dLBorderline High LDL: 130-159 mg/dLHigh LDL: 160-189 mg/dLVery High LDL: greater than or equal to 190 mg/dL HDL Cholesterol 47 >40 mg/dL [facility] Comment:Desirable HDL: great er than 40 mg/dL Note: This HDL assay may give artificially low results in patients with liver disease. Blood Venous blood specimen / Unknown 08/31/2023 7:47 AM EDT 08/31/2023 7:49 AM EDT Kyaw Forrest MD LAB BLOOD ORDERABLES Final Result Performing Organization Address City/[facility]/ZIP Co de Phone Number [facility] [address] [place] [address] [phone] * HEPATITIS C ANTIBODY RFLX (05/20/2021 9:06 AM EDT) Hepatitis C Antibody Nonreactive Nonreactive [facility] Comment: Antibodies to HCV not detected; does not exclude early acute HCV infection. 05/20/2021 9:06 AM EDT Kyaw Forrest MD HISTORICAL/NON ORDERA BLE LABS Final Result Performing Organization Address [facility] Phone Number [facility] [address] * MICROALBUMIN/CREATININE RATIO, RANDOM URINE (05/20/2021 9:00 AM EDT) Creatinine Urine 189.58 mg/dL [facility] Microalbum/Creati nine Ratio Ur 16.3 ug/mg cr [facility] Comment: ?Albumin/Creatinine Ratio Reference Ranges: ? Normal: < 30 ug/mg creatinine ? Microalbuminuria: ??30 - 300 ug/mg creatinine Clinical Albuminuria: ??> 300 ug/mg creatinine Microalbumin Urine 31.0 mg/L [facility] 05/20/2021 9:00 AM EDT Kyaw Forrest MD HISTORICAL/NON ORDERA BLE LABS Final Result Performing Organization Address [facility] Co de Phone Number [facility] [address] from Last 3 Months or Most Recently Relevant to Health Maintenance Insurance [facility] C3 DENTAL-[facility] MEDICAID STAND ADULT Care Teams Grinder Set Up Operator Centerless Relationship Specialty Start Date End Date Kyaw Nicole MD [address] [place] [address] PCP - General Internal Medicine 01/30/18
--- OUTSIDE RECORDS SUMMARY | 2024-04-15 09:28 | XMS_ITS | Encounter Summary ---
Author Organization [employer] Address [address] [place] [address] Care Team Providers Care Distribution Clerk Name Role Phone Kyaw Nicole MD Primary Care Provide r Encounter Details Date Type Department Care Team (Late st Contact Info) Description 11/09/2022 Orders Only [facility] [address] [place], [place] [phone] Michelle Caicedo LPN Social History Tobacco Use Types Packs/Day Years [...] on filedocumented in this encounter Care Teams Distribution Clerk Relationship Specialty Start Date End Date Kyaw Nicole MD [address] [place] [id number] PCP - General Internal Medicine 01/30/18 documented as of this encounter
--- OUTSIDE RECORDS SUMMARY | 2024-04-15 09:28 | XMS_ITS ---
Demographics Address [address] [place] [address] Email Address Preferred Language en Marital Status Unknown Taoism Affiliation Unknown Race or A laska [place] Additional Race(s) [place] Ethnic Group or Author Organization [facility] Address [address] [place] [address] Support Name Relationship Address Phone CELSO MATTA Emergency Contact [address] [place] [address] TAMI MCKEE Guarantor Unknown Care Team Providers Care Pipe Fitter Supervisor Name Role Phone Bere Forrest MD, Kyaw Primary Care Provide r Elvis Ayoub Unavailable [phone] ALLERGIES No Known Allergies REASON FOR VISIT Patient presents today for a COLON SCREENING MEDICATIONS Medication SIG (Take, Route, Fr equency, Duration) Notes Start Date End Date Status metFORMIN HCl ER 500 MG TAKE 1 TABLET BY MOUTH EVERY DAY WITH THE EVENING MEAL Oral for 90 Active Chlorthalidone 50 MG Oral for 90 Active Fenofibrate 48 MG 1 tablet Orally Once a day for 30 day(s) Active Clotrimazole 1 % External for 28 Active Naproxen 500 MG TAKE 1 TABLET [...] Colon cancer screening (Z12.11) Active confirmed Colon cancer screening (506481495) Problem History of colon polyps (Z86.010) Active confirmed History of polyp of colon (276596383) Problem Preprocedural examination (Z01.818) Active confirmed Preprocedural examination (540498964572027 ) VITAL SIGNS BMI 59.07 kg/m2 08/07/2023 Blood pressure systolic 00 mm Hg 08/07/19 24 Blood pressure diastolic 00 mm Hg 024 Height 57 in 08/07/2023 Weight 273 lbs 08/07/2023 Encounters Encounter Location Date Provider Diagnosis [facility] [address] [place] [address] 08/07/2023 Elvis Wray Colon cancer screeni ng Z12.11 ; Preprocedural examination Z01.818 and History of colon polyps Z86.010 ASSESSMENTS Encounter Date Diagnosis Assessment Notes Treatment Notes Treatment Clinical Notes 08/07/2023 Colon cancer screening (ICD-10 - Z12.11) Do not take the Chlorthalidone the day before or on the day of the colonoscopy Do not take the Metformin the day before nor on the day of the colonoscopy Stop Naproxen for 1 week before the colonoscopy 08/07/2023 Preprocedural examination (ICD-10 - Z01.818) 08/07/2023 History of colon polyps (ICD-10 - Z86.010) PLAN OF TREATMENT Treatment Notes Assessment Notes Colon cancer screening Do not take the Chlorthalidone the day before or on the day of the colonoscopy Do not take the Metformin the day before nor on the day of the colonoscopy Stop Naproxen for 1 week before the colonoscopy Future Test Test Name Order Date COLONOSCOPY 08/07/2023 Next Appt Details Follow Up: prn, Reason: Progress Notes * Examination Category Sub-Category Detail Notes General Examination GENERAL APPEARANCE: pleasant , well nourished, well developed, in no acute distress HEAD: EYES: sclera non-icteric EARS: NOSE: THROAT: NECK/THYROID: no cervical lymphade nopathy, neck supple HEART: S1, S2 normal CHEST: LUNGS: clear to auscultatio n bilaterally ABDOMEN: normal bowel sounds, no guarding or rigidity, no guarding or rigidity, no masses palpable, soft, nontender, nondistended NEUROLOGIC: alert and oriented SKIN: nonjaundiced, no spi casie angiomata EXTREMITIES: no edema PERIPHERAL PULSES: BACK: BREASTS: MUSCULOSKELETAL: MALE GENITOURINARY: LYMPH NODES: RECTAL EXAM: FEMALE GENITOURINARY: ORAL CAVITY: mucosa moist
--- NOTE | 2024-04-15 09:48 | HO.SPINEOV ---
Intake Visit Reasons: 2nd post op Intake Note: Mr. Sarthak Cortes is here today for his 2nd post op. Marble Cutter Required: No Allergies No Known Allergies [No Known Allergies*] Allergy (Verified 04/15/24 09:49) Assessment & Plan Assessment & Plan (1) Status post lumbar spine surgery for decompression of spinal cord: Code(s): Z98.890 - Other specified postprocedural states Category: Surgical Plan Procedure: L2-3 Laminotomy, Partial facetectomy and foraminotomy Mirtha is a pleasant 59-year-old male who comes in today for his 2nd postoperative visit. To recap he had a L2-[address] Ramachandran a couple of months ago. During our last visit, he was encouraged to allow the tincture of time to relieve some of his continued pain. He reports that his bilateral lower extremities feel much better than they did prior to surgery. He no longer suffers from the numbness and severe pain in his legs when ambulating or standing. Unfortunately, he continues to suffer from fairly severe low back pain. He states that he has discussed this with RIGO Luu in the past, however he is not willing to undergo spine fusion surgery to address this, as he can not take the time off of work, and is struggling financially overall. He further explained that even if he were to go on disability, unemployment, or FMLA, he would still not make enough money to make ends meet. He does report that he has sparingly utilize his oxycodone prescription that he had postoperatively for severe flare-ups of pain in his low back, and feels this has been extremely helpful for him to remain active. No new neurological deficits. The patient ambulates well and rises from a seated position without difficulty. I will be sending in the patient a prescription for baclofen to help with his continued low back spasms likely contributing to his pain. I encouraged him to follow up with his primary care physician to discuss the possibility of a very small prescription of Percocet, which he could get monthly and takes sparingly for breakthrough pain. I believe this is reasonable, however it will need to be prescribed by a provider who sees him regularly and often. The patient understands that he can not drive or operate heavy machinery while on baclofen as this may sedate him. Nomi Ramachandran MD,PhD [facility] Coding Level of Care Code Global (12468) Diagnoses Status post lumbar spine surgery for decompression of spinal cord Z98.890
== END 2024-04-15 10:25 | disposition home or self-care (01) ==
PROVIDERS: PCP Internal Medicine; Visit Provider Physician Assistant
DX: Z98.890 Other specified postprocedural states (principal)
CPT/HCPCS: 99024

== ENCOUNTER → 2024-04-15 09:15 | Outpatient (BNVA) | payer MEDICAID, SELFPAY | PROVIDERS: PCP Internal Medicine; Visit Provider Physician Assistant | DX: Z47.89 Encounter for other orthopedic aftercare (principal); Z98.890 Other specified postprocedural states | CPT/HCPCS: 99212 ==

== ENCOUNTER 2024-08-03 13:57 | Outpatient (AMB) | payer MEDICAID, SELFPAY ==
[2024-08-03 14:16] VITALS: BP 120/82; PULSE 100; O2SAT 98; BMI 43.4
--- NOTE | 2024-08-03 14:16 | A.OFFVIS_ITS ---
Vital Signs 08/03/24 14:16 Height 5 ft 7 in Weight 277 lb BMI 43.4 BP 120/82 Blood Pressure Location Lt brachial Position Sitting Pulse 100 Pulse Source Pulse Oximeter Pulse Oximetry (%) 98 Oxygen Delivery Method Room Air Intake Visit Reasons: Obstructive sleep apnea Intake Note: pt is here for follow up and states he is feeling good today, Allergies No Known Allergies [No Known Allergies*] Allergy (Verified 08/03/24 14:32) Medication List - Last Reconciled 08/03/24 by Sheri Radford MD baclofen 10 mg PO TID blood sugar diagnostic (FreeStyle Lite Strips) As directed chlorthalidone 50 mg PO DAILY clotrimazole 1% 1 appl topical DAILY PRN fenofibrate nanocrystallized 48 mg PO DAILY metformin ER 500 mg PO QAM naproxen 500 mg PO BID 60 days oxycodone 5 mg PO Q4H PRN Do you need a note to return to daycare/school/sports/work: No HPI HPI Obstructive sleep apnea: Details: Mirtha is 59 years old gentleman who morbidly obese and a case of obstructive sleep apnea he is coming for follow-up after 6 months. Uses CPAP very regularly every night and sleeps well. He says I love my CPAP machine. Uses every night up to 6 or 7 hours. He remains alert and active during the daytime. His weight is down by a few lb and he hopes to lose more. Weight during the summer months He works with a [employer] company who are more active only during the summer. He tells me that his also uses CPAP at night. Smokes about 3 cigarettes a day and as because his also smokes, but some days he will go without any cigarettes. Overall he is doing very well except for being overweight. [facility] Medical History Bilateral cataracts Lumbar spinal stenosis Lumbar degenerative disc disease Other male erectile dysfunction Chronic midline low back pain without sciatica Hypertriglyceridemia Onychomycosis Bunion, right foot Alcoholism Male hypogonadism Tubular adenoma ANGELA on CPAP Morbid obesity Diabetes HTN (hypertension) Obese Surgical History H/O colonoscopy History of bilateral cataract extraction History of surgery Social History Are you a primary adult day care worker to a significant other at home: No Do you presently have visiting nurse or other home services: No Alcohol intake: current Alcohol intake frequency: a few times a week Alcohol type: beer Patient Tobacco Use Status: Current everyday Tobacco user Tobacco use type: Cigarette Cigarette Packs Per Day: 0.5 Cigarettes Per Day: 5 Current occupational status: employed Current occupation: right hand dominant Review of Systems Const All systems reviewed & are unremarkable except as noted in HPI and below Eyes Reports no additional complaints ENT Reports no additional complaints Card Denies chest pain, Denies irregular heart rhythm and Denies leg edema Resp Reports no additional complaints GI Reports no additional complaints Reports no additional complaints Musc Reports no additional complaints Skin/Breast Reports system reviewed and no additional complaints, except as documented Neuro Reports no additional complaints Psych Reports no additional complaints Endo Reports other (Being treated for her DM.) Reilly/Lymph Reports no additional complaints Physical Exam Vital Signs: Last Vital Signs Pulse 100 08/03/24 14:16 BP 120/82 08/03/24 14:16 Pulse Ox 98 08/03/24 14:16 Oxygen Delivery Method Room Air 08/03/24 14:16 BMI result Body Mass Index 43.4 Const Other: HAS LOST 19 LB SINCE LAST VISIT General: comfortable, no acute distress, alert and awake Orientation/consciousness: patient oriented x3 HEENT Head: Yes normal to inspection General nose exam: No nasal polyps present and No nasal discharge present Face and sinus: Yes sinuses nontender Mouth: oropharynx abnormals (Narrow and crowded, Mallampati class 4) Throat: Yes posterior oropharynx normal Eyes General: appearance normal, both eyes and all related structures Neck Neck: Yes normal visual inspection, Yes no lymphadenopathy, Yes trachea midline and Yes no JVD Thyroid: Thyroid normal Chest Chest palpation & inspection: normal inspection of the chest, normal palpation of entire chest wall and no tenderness Resp Effort & Inspection: normal respiratory effort Auscultation: clear to auscultation bilaterally, no crackles, no rhonchi and no wheezes Percussion: percussion normal Cardio Palpation: normal PMI Rate: regular rate Rhythm: regular rhythm Heart sounds: no gallops and no murmurs GI Palpation (GI): Soft to palpation, nontender, No hepatosplenomegaly present, no masses and Other GI palpation findings present (Abdomen is slightly obese and protuberant) Auscultation: normal bowel sounds Back/Spine/Pelvis Thoracic/Lumbar Spine: thoracic and lumbar spine normal to inspection Skin General skin exam: no rashes or lesions noted Neuro General: patient oriented x3 and no focal motor deficits Cranial nerves: Yes CN's II-XII intact bilaterally Extrem General: Yes normal to inspection, Yes no clubbing, cyanosis or edema, Yes no calf tenderness and Yes venous stasis dermatitis (Mild the left leg.) Psych Appearance: grossly normal and well kempt Speech and movement: Normal speech and movement present Results Reviewed Results Reviewed: Compliance report for the last 30 nights is reviewed He has used 29/30 nights and average use it per night is 6 hours 35 minutes. No significant air leak residual AHI 3.9 Assessment & Plan Assessment & Plan (1) Morbid obesity: Comment: HE IS WELL AWARE OF HIS BEING OVERWEIGHT, DURING THE PAST YEAR BECAUSE HE HAD BACK SURGERY AND NOT BACK TO WORK, HE HAS PUT ON SIGNIFICANT WEIGHT. Since his last visit he has lost a few lb of weight. Code(s): E66.01 - Morbid (severe) obesity due to excess calories Category: Medical Plan: TALKED TO HIM ABOUT DIET AND ALSO ABOUT WALKING DAILY . HE PLANS TO LOSE MORE WEIGHT DURING THE SUMMER MONTHS (2) ANGELA on CPAP: Comment: HAS BEEN VERY COMPLIANT.AND IS VERY HAPPY WITH THE USAGE. RESIDUAL AHI ONLY 3.9 WHICH IS IMPROVED COMPARED TO HIS LAST VISIT. Code(s): G47.33 - Obstructive sleep apnea (adult) (pediatric); Z99.89 - Dependence on other enabling machines and devices Category: Medical Plan: COMMENDED FOR GOOD COMPLIANCE AND ADVISED TO KEEP ON USING THE CPAP EVERY NIGHT REGULARLY. Coding Level of Care Code Est Pt Level 3 (68586) Diagnoses Morbid obesity E66.01 ANGELA on CPAP G47.33; Z99.89
--- OUTSIDE RECORDS SUMMARY | 2024-08-03 15:52 | XMS_ITS ---
Demographics Address [address] [place] [address] Email Address Preferred Language en Marital Status Unknown Jew Affiliation Unknown Race or A laska [place] Additional Race(s) Jez Ethnic Group or Author Organization [facility] Address [address] [place] [phone] Support Name Relationship Address Phone CELSO MATTA Emergency Contact [address] [place], [place] [id number] TAMI MCKEE Guarantor Unknown Care Team Providers Care Medical Insurance Collector Name Role Phone Bere Forrest MD, Kyaw Primary Care Provide Elvis Morris [phone] REASON FOR VISIT bowel prep Medications Medication SIG (Take, Route, Frequency, Duration) Notes [...] Active Encounters Encounter Location Date Provider Diagnosis [facility] [address] [place] [phone] 08/07/2023 Elvis Wray Plan Of Treatment Medication Medication Name Sig Start Date Stop Date Notes MiraLax (colon prep) 17 GM/SCOOP 1 238 Gm bottle mixed with Gatorade or Crystal Light Orally begin at 5:00 p.m. the day before the procedure for 1 day 08/10/2023 Dulcolax (colon prep) 5 MG take at 3:00 p.m and 7:00p.m. Orally two tablets twice a day for one day for 1 day 08/10/2023 Progress Notes * YORDAN MCKEEOB: 1965 (58 yo M)Acc No.[id number]:08/07/2023 Patient:?TAMI MCKEE :1965???Age:58 Y???Sex:Male Address: [address] [place], [place], [place] [address] * Refills? Start MiraLax (colon prep) Powder, 17 GM/SCOOP, Orally, 1, 1 238 Gm bottle mixed with Gatorade or Crystal Light, begin at 5:00 p.m. the day before the procedure, 1 day, Refills=0 Start Dulcolax (colon prep) Tablet Delayed Release, 5 MG, Orally, 4, take at 3:00 p.m and 7:00p.m., two tablets twice a day for one day, 1 day, Refills=0 * true * Date:? Generated for Christy henderson/Claribel/Paulasmitting on:?08/03/2024 03:51 PM EDT
== END 2024-08-03 14:49 | disposition home or self-care (01) ==
LOC: HO.HPS 13:58
PROVIDERS: PCP Internal Medicine; Visit Provider Internal Medicine
DX: E66.01 Morbid (severe) obesity due to excess calories (principal); G47.33 Obstructive sleep apnea (adult) (pediatric); Z99.89 Dependence on other enabling machines and devices
CPT/HCPCS: 99213

== ENCOUNTER → 2024-08-03 13:57 | Outpatient (BNVA) | payer MEDICAID, SELFPAY | PROVIDERS: PCP Internal Medicine; Visit Provider Internal Medicine | DX: Z71.3 Dietary counseling and surveillance (principal); E66.01 Morbid (severe) obesity due to excess calories; G47.33 Obstructive sleep apnea (adult) (pediatric); Z99.89 Dependence on other enabling machines and devices | CPT/HCPCS: 99212 ==

== ENCOUNTER 2024-10-01 14:08 | Outpatient (REF) | payer MEDICAID, SELFPAY ==
--- OUTSIDE RECORDS SUMMARY | 2023-11-29 04:30 | XMS_ITS ---
Author Organization [facility] Address [address] [place] [phone] Care Team Providers Care Supervisor Product Inspection Name Role Phone Bere Forrest MD, Kyaw Primary Care Provide r Elvis Ayoub Unavailable [phone] REASON FOR VISIT screening, hx polyps Problems Problem Type SNOMED Code ICD Code Onset Dates Problem Status W/U Status Risk Notes Problem Diverticulosis o f large intestine without perforation or abscess without bleeding (K57.30) Active confirmed Encounters Encounter Location Date Provider Diagnosis [facility] Outpatient [address], [place] [id number] 11/29/2023 Elvis Wray Colon cancer scree nelson [...] * YORDAN MCKEEOB: 1965 (59 yo M)Acc No.[id number]:11/29/2023 COLON WITH MAC Patient: S ANTIAGO RUSHING, TAMI Provider: Willie Wray MD :1965 A ge:58 Y S ex:Male Date:11/29/2023 [facility] [address] [facility] [address] [id number] Pcp:Kyaw triplett MD Subjective: * Chief Complaints: [...] Date: 1 Generated for Christy henderson/Claribel/Alysaransmitting on: 0 10/01/2024 01:21 PM EDT
--- OUTSIDE RECORDS SUMMARY | 2024-10-01 14:15 | XMS_ITS | Clinical Summary ---
Author Organization [employer] Address [address] [place] [address] Care Team Providers Care Network Control Operator Name Role Phone Kyaw Nicole MD Primary Care Provide r Allergies No known active allergies Medications fenofibrate (Tricor) 48 MG tabletIndicatio ns:Hypertriglyc eridemia Take 1 tablet (48 mg) by mouth Once per day. 30 tablet 6 08/06/19 24 Active tadalafil (Cialis) 10 MG tabletIndicatio ns:Other male erectile dysfunction Take 1 tablet (10 mg) by mouth if needed each day for erectile dysfunction. 10 tablet 6 08/06/19 24 Active clotrimazole (Lotrimin) 1 % cream APPLY EXTERNALLY TO THE AFFECTED AREA AND SURROUNDING AREAS OF SKIN TWICE DAILY(MORNING AND EVENING) 60 g 6 11/26/19 24 Active chlorthalidone (Hygroton) 50 MG tabletIndicatio ns:Essential hypertension TAKE 1 TABLET(50 MG) BY MOUTH IN THE MORNING 90 tablet 1 03/03/19 25 Active metFORMIN XR (Glucophage-XR) 500 MG 24 hr tabletIndicatio ns:Type 2 diabetes mellitus without complication, without long-term current use of insulin (CMS/HCC) TAKE 1 TABLET BY MOUTH EVERY DAY WITH THE EVENING MEAL 90 tablet 1 10/02/19 25 Active acetaminophen (Tylenol 8 Hour) 650 MG ER tabletIndicatio ns:Chronic midline low back pain without sciatica Take 1 tablet (650 mg) by mouth every 8 (eight) hours if needed for mild pain. 60 tablet 3 10/02/19 25 Active naproxen (Naprosyn) 500 MG tabletIndicatio ns:Pain Take 1 tablet (500 mg) by mouth with breakfast and with evening meal. 60 tablet 1 10/02/19 25 Active naproxen (Naprosyn) 500 MG tabletIndicatio ns:Pain Take 1 tablet (500 mg) by mouth with breakfast and with evening meal. 60 tablet 1 11/23/19 23 2024 Discontinued(R eorder (will not trigger notification to Pharmacy)) metFORMIN XR (Glucophage-XR) 500 MG 24 hr tabletIndicatio ns:Type 2 diabetes mellitus without complication, without long-term current use of insulin ([facility]) TAKE 1 TABLET BY MOUTH EVERY DAY WITH THE EVENING MEAL 90 tablet 1 03/03/19 25 2024 Discontinued(R eorder (will not trigger notification to Pharmacy)) Active Problems Problem Noted Date Diagnosed Date Preoperative examination 10/01/2024 Assessment & Plan (10/01/2024 1:51 PM EDT): Patient is here for a preoperative exam Patient is scheduled for: strabismus surgery right eye On: 10/19/2024 By: dr Purdy Anesthesia: General After careful review of patient's most recent laboratory tests: EKG: NSR no acute st-t changes And today's Physical examination I do not see any contraindication for patient to undergo this: low Risk surgical intervention. Patient has been advised to follow up after the procedure has been completed Chronic midline low back pain without sciatica 0 08/06/2023 Assessment & Plan (10/01/2024 2:00 PM EDT): Pt is here for a [...] was referred to [facility] Dr. Ramachandran. In 01/2024 underwent L2-3 left bilateral decompression. Assessment & Plan (11/26/2023 2:57 PM EDT): [...] with mild benefit Plan: [place] [facility] [place] Other male erectile dysfunction [...] less than 100 mg/dLNear Optimal/Above Optimal LDL: 110-129 mg/dLBorderline High LDL: 130-159 mg/dLHigh LDL: 160-189 [...] Preventative health care 11/22/2022 Assessment & Plan (10/01/2024 1:54 PM EDT): PSA 11/28/2023 Normal Colonoscopy: 11/29/2023 showed: Diverticulosis. Internal hemorrhoids. Dr Wray Assessment & Plan (11/26/2023 3:02 PM EDT): [...] diabetes mellitus without complication Assessment & Plan (10/01/2024 1:52 PM EDT): Pt here for Diabetes f/u controlled Hgb A1c 10/01/2024 : 6.2 from : 6.0 Eye exam: Dr Purdy Microalbumin 04/2021 16.5, will repeat He is on a regimen of Metformin ER 500 mg po daily Foot check today is risk of: zero Plan: Continue Metformin ER 500mg po daily f/u 4 months Pt advised to: adhere to diabetic diet check your blood sugars regularly check your feet on a daily basis Pt asked to take his Metformin untul after the procedure has been completed Assessment & Plan (11/26/2023 2:58 PM EDT): Pt here for Diabetes f/u controlled Hgb A1c 11/26/2023: 6.0 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 Microalbumin 04/2021 16.5 He is on [...] 6.3 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 Most recent electrolytes, Bun and Creatinine done on: Lab Results Component Value Date NA 141 12/14/2023 NA 142 11/28/2023 K 4.1 12/14/2023 K 3.0 (L) 11/28/2023 CL 99 12/14/2023 CL 98 11/28/2023 BUN 9 12/14/2023 BUN 10 11/28/2023 CREATININE 0.74 12/14/2023 CREATININE 0.81 11/28/2023 Wnl. Will repeat today patient advised to adhere to a low sodium diet, encouraged about medication compliance, counseled about weight loss. Pt recommended to take his blood pressure medications with a small sip of water to prevent his blood pressure from going up during the procedure Assessment & Plan (11/26/2023 3:00 PM EDT): [...] loss. Morbid obesity 11/15/2011 Assessment & Plan (10/01/2024 2:01 PM EDT): Pt counseled and educated about diet and exercise Pt was referred to the [place] management [place] [facility] [place] pt declines to consider surgical interventions, refuses to try GLP1s Assessment & Plan (08/06/2023 12:22 PM EDT): Pt counseled and educated about diet and exercise Pt was referred to the weight management treatment center [place] [facility] [place] pt declines to consider surgical interventions Assessment & Plan (11/22/2022 2:49 PM EDT): Pt counseled and educated about diet and exercise Pt was referred to the weight management treatment center at [facility] previously pt declines to consider surgical interventions [...] Encounters Date Type Department Care Team Description 10/01/2024 1:30 PM EDT Office Visit [facility] [address] [place] [address] Kyaw Nicole MD Type 2 diabetes mellitus without complication, without long-term current use of insulin ([facility]) (Primary Dx); Essential hypertension; Preoperative examination; Preventative health care; Chronic midline low back pain without sciatica; Morbid obesity (CMS/[facility]); Pain; Dietary counseling; Exercise counseling 10/01/2024 Travel 09/29/2024 Travel 08/07/[address] [facility] [address] [place] [address] Kyaw Nicole MD pre op 08/05/[address] [facility] [address] [place] [address] Kyaw Nicole MD chart prep from Last 3 Months Immunizations Immunization Administration Dates Next Due Hep B, adult [...] Sign Reading Time Taken Comments Blood Pressure 138/88 10/01/2024 1:29 PM EDT Pulse 95 10/01/2024 1:29 PM EDT Temperature 36.4 C (97.6 F) 10/01/2024 1:29 PM EDT Respiratory Rate 20 10/01/2024 1:29 PM EDT Oxygen Saturation 96% 10/01/2024 1:29 PM EDT Inhaled Oxygen Concentration - - Weight 120 kg (264 lb 9.6 oz) 10/01/2024 1:29 PM EDT Height 165.1 cm (5' 5 ) 10/01/2024 1:29 PM EDT Body Mass Index 44.03 10/01/2024 1:29 PM EDT Plan of Treatment Health Maintenance Due Date Last Done Comments CT Colonography 1966 Dental Prophylaxis 1966 FIT DNA/Cologuard 1966 FIT 1966 FOBT 1966 HIV Screening 1965 Sigmoidoscopy 1966 Diabetes: Foot Exam 01/02/1976 Eye Exam 01/02/1976 Pneumococcal Vaccine: 50+ Years (2 of 2 - PCV) 01/03/2012 01/02/2011 Dental Oral Exam 03/25/2021 09/21/2020, 10/2019, 11/21/2016 Dental X-Ray: Bitewings 09/22/2021 09/22/19 21, 05/04/2019, 11/21/2016 Diabetes: Urine Protein Screening 05/20/2022 05/20/2021 Dental X-Ray: Full Mouth 09/23/2023 09/21/2020, 10/27 COVID-19 Vaccine ( season) 2023 03/20/2022, 09/21/2021, 03/01/2021, Additional history exists Lipid Panel 08/30/2024 08/31/2023, 12/26, 01/27/2022 Influenza Vaccine (#1) 2024 , 11/22/2022, 12/12/2021, Additional history exists Depression Screening 11/25/2024 11/26/2023, 11/26/19 24 SDOH Screening 11/25/2024 11/26/2023 Diabetes: Hemoglobin A1C 04/03/2025 025, 11/26/2023, 08/06/2023, Additional history exists Alcohol/Substance Use Screening 10/01/2025 10/01/2024 Disability Screening 10/01/2025 10/01/2024 Tobacco Screening 10/01/2025 10/01/2024 Colonoscopy 11/28/2028 11/29/2023, 05/2023, 06/29/2013 Colorectal Cancer Screening 11/28/2028 DTaP/Tdap/Td Vaccines (3 - Td or Tdap) 03/14/2030 03/14/2020, 11/15/2016, 07/06/2011, Additional history exists RSV Patients and Patients Aged 60 years or older (1 - 1-dose 75+ series) 2041 Hepatitis B Vaccines Completed 02/23/2016, 05/18/2015, 03/31/2015 Hepatitis C Screening Completed 05/20/2021 Zoster Vaccines Completed 10/10/2021, 08/01/2021 HIB Vaccines Aged Out No longer eligi [...] patient's age to complete this topic Meningococcal B Vaccine Aged Out No l onger eligible based on patient's age to complete [...] Procedure Name Priority Date/Time Associated Diagnosis Comments ECG 12-LEAD Routine 10/01/2024 1:50 PM EDT Preoperative examination Essential hypertension POCT GLYCATED HEMOGLOBIN, TOTAL Routine 10/01/2024 1:50 PM EDT Type 2 diabetes mellitus without complication, without long-term current use of insulin ([facility]) POCT GLUCOSE Routine 10/01/2024 1:49 PM EDT Type 2 diabetes mellitus without complication, without long-term current use of insulin (CMS/HCC) HM COLONOSCOPY Routine 11/29/2023 LIPID PANEL, STANDARD Routine 08/31/2023 7:47 AM EDT Hypertriglyceridemia ZZZ HISTORICAL HEPATITIS C ANTIBODY RFLX Routine 05/20/2021 9:06 AM EDT ZZZ HISTORICAL MICROALBUMIN/CREATINI NE RATIO, RANDOM URINE Routine 05/20/2021 9:00 AM EDT INTRAORAL - COMPLETE SERIES OF RADIOGRAPHIC IMAGES Routine 09/21/2020 12:00 AM EDT PERIODIC ORAL EVALUATION - ESTABLISHED PATIENT Routine 09/21/2020 12:00 AM EDT from Last 3 Months or Most Recently Relevant to Health Maintenance Results * ECG 12 lead (10/01/2024 1:50 PM EDT) Narrative Kyaw Nicole MD - 10/01/2024 1:50 PM EDT Images from the original result were not included. NSR, HR [address]-t changes Kyaw Forrest MD ECG ORDERABLES Final Result * (ABNORMAL) POCT HGB A1C (10/01/2024 1:50 PM EDT) Hemoglobin A1C 6.2(A) 4.0 - 5.7 % QC Media Lot # [id number] Lot# Expiration Date Blood 10/01/2024 1:50 PM EDT Kyaw Forrest MD POINT OF CARE TEST EN TER/EDIT ORDERABLES Final Result * POCT Glucose (10/01/2024 1:49 PM EDT) Glucose Blood, POC 105 60 - 200 mg/dL QC Media Lot # [id number] Lot# Expiration Date [id number] Blood Capillary blood specimen / Unknown 10/01/2024 1:49 PM EDT Kyaw Forrest MD POINT OF CARE TEST EN TER/EDIT ORDERABLES Final Result * Hm Colonoscopy (11/29/2023) Colonoscopy Normal Normal Comment:Dr. Wray Historical Provider HEALTH MAINTENANCE Final Result * (ABNORMAL) Lipid Panel, Standard (08/31/2023 7:47 AM EDT) Triglycerides 191(H) <150 mg/dL [facility] Comment:Desirable Triglyceri de: less than 150 mg/dLBorderline High Triglyceride 150-199 mg/dLHigh Triglyceride: 200-499 mg/dLVery High Triglyceride: greater than or equal to 5OO mg/dL Cholesterol 182 <200 mg/dL [facility] Comment:Desirable Cholestero l: less than 200 mg/dLBorderline High Cholesterol: 200-239 mg/dLHigh Cholesterol: greater than 239 mg/dL LDL Cholesterol Calculated 97 <100 mg/dL [facility] Comment:Desirable LDL: less than 100 mg/dLNear Optimal/Above Optimal LDL: 110- 129 mg/dLBorderline High LDL: 130-159 mg/dLHigh LDL: 160-189 mg/dLVery High LDL: greater than or equal to 190 mg/dL HDL Cholesterol 47 >40 mg/dL [facility] Comment:Desirable HDL: great er than 40 mg/dL Note: This HDL assay may give artificially low results in patients with liver disease. Blood Venous blood specimen / Unknown 08/31/2023 7:47 AM EDT 08/31/2023 7:49 AM EDT Kyaw Forrest MD LAB BLOOD ORDERABLES Final Result [facility] [address] [place] [phone] * HEPATITIS C ANTIBODY RFLX (05/20/2021 9:06 AM EDT) Pathologist [facility] Hepatitis C Antibody Nonreactive Nonreactive [facility] Comment: Antibodies to HCV not detected; does not exclude early acute HCV infection. 05/20/2021 9:06 AM EDT Kyaw Forrest MD HISTORICAL/NON ORDERA BLE LABS Final Result Performing Organization Address City/[facility] Co de Phone Number [facility] [address] * MICROALBUMIN/CREATININE RATIO, RANDOM URINE (05/20/2021 9:00 AM EDT) Pathologist [facility] Creatinine Urine 189.58 mg/dL [facility] Microalbum/Creati nine Ratio Ur 16.3 ug/mg cr [facility] Comment: Albumin/Creatinine Ratio Reference Ranges: Normal: < 30 ug/mg creatinine Microalbuminuria: 30 - 300 ug/mg creatinine Clinical Albuminuria: > 300 ug/mg creatinine Microalbumin Urine 31.0 mg/L [facility] 05/20/2021 9:00 AM EDT Kyaw Forrest MD HISTORICAL/NON ORDERA BLE LABS Final Result Performing Organization Address [facility] Co de Phone Number [facility] [address] from Last 3 Months or Most Recently Relevant to Health Maintenance Insurance [facility] STAND ADULT Care Teams Network Control Operator Relationship Specialty Start Date End Date Kyaw Nicole MD [address] [place] [address] PCP - General Internal Medicine 01/30/18
--- OUTSIDE RECORDS SUMMARY | 2024-10-01 14:15 | XMS_ITS | Clinical Summary ---
Demographics Address [address] [facility] [place] [address] Home Phone Preferred Language Macedonian Marital Status /Civil Union Latter Day Affiliation Unknown Race Unknown Ethnic Group or Author Organization [facility] Address [address] [place] [address] Phone Care Team Providers Care Senior Information Security Analyst Name Role Phone Pio Villafana NP, Ree Primary Care Provider Tiffany ramirez Allergies No known active allergies Medications HYDROcodone-josefina taminophen (NORCO) 5-325 mg per tablet Take 1-2 tablets by mouth every 4-6 hours as needed for pain. Patient may request partial fill. 20 tablet 09/19/2017 Active Social History Tobacco Use Types Packs/Day Years Used Date Smoking Tobacco: Every Day Smokeless Tobacco: Never Alcohol Use Standard Drinks/Week Comments No 0 (1 standard drink = 0.6 oz pur e alcohol) quit 2001 Education Answer Date Recorded Are you interested in more education? Not on wally e 06/22/2022 Are you concerned about learning? Not on file 06/22/2022 No 06/22/2022 No 06/22/2022 Digital Access Answer Date Recorded No 07/23/2022 No 07/23/2022 No 07/23/2022 Reliable internet access at home? Not on file 07/23/2022 Device with a working camera? Not on file Sex and Gender Information Value Date Recorded Sex Assigned at Male 09/11/2017 3:07 PM EDT Legal Sex Male 9:40 PM EDT Gender Identity Male 09/11/2017 3:07 PM EDT Sexual Orientation Not on file Last Filed Vital Signs Vital Sign Reading Time Taken Comments Blood Pressure 132/84 09/19/2017 1:11 PM EDT Pulse 85 09/19/2017 1:11 PM EDT Temperature 36.9 C (98.4 F) 09/11/2017 3:04 PM EDT Respiratory Rate 16 09/11/2017 3:04 PM EDT Oxygen Saturation 96% 09/11/2017 3:04 PM EDT Inhaled Oxygen Concentration - - Weight 143 kg (315 lb 4.1 oz) 09/26/2017 2:31 PM EDT Height 170.2 cm (5' 7.01 ) 09/26/2017 2:31 PM ED T Body Mass Index 49.36 09/26/2017 2:31 PM EDT Plan of Treatment Health Maintenance Due Date Last Done Comments Adult Td,Tdap Booster 1966 LIPID PANEL 1966 DEPRESSION SCREENING 1978 SMOKING Hx and SMOKELESS TOB ACCO SCREENING 1979 HEPATITIS C SCREENING 01/02/1984 HIV ONE-TIME SCREENING (18-6 5 YEARS) 01/02/1984 PNEUMOCOCCAL VACCINES (50+ y ears) (1 of 2 - PCV) 1985 COLOGUARD 2011 COLONOSCOPY 2011 COLORECTAL CANCER SCREENING 2011 FIT TEST 2011 FOBT 2011 SIGMOIDOSCOPY 2011 VIRTUAL COLONOSCOPY 2011 ZOSTER VACCINES (1 of 2) 01/02/2016 COVID-19 VACCINE (2 - 2023-2 5 season) 2023 06/15/2020 HEPATITIS A VACCINES Aged Out No long er eligible based on patient's age to complete this topic HIB VACCINES Aged Out No longer eligi ble based on patient's age to complete this topic MENINGOCOCCAL VACCINES (ACWY) Aged Out No longer eligible based on patient's age to complete this topic MENINGOCOCCAL VACCINES (B) Aged Out N o longer eligible based on patient's age to complete this topic Medical Devices Not on file Insurance * Guarantor: Mirtha De León Account Type Relation to Patient Date of Phone Billing Address Personal/Family Self 1965 [address] [place] [address] [employer] NET PARTIAL Member Subscriber Plan / Payer (Ef fective 2017-Present) Name:Mirtha De León Relation to Subscriber:Self Name:Mirtha De León Payer ID:Not on file Group ID:Not on file Type:Medicaid Address: [address] [employer] * Guarantor: Mirtha De León Account Type Relation to Patient Date of Phone Billing Address Personal/Family Self 1965 [address] [place] [address] HEALTH SAF[employer]Y NET PARTIAL Member Subscriber Plan / Payer (Ef fective 2017-Present) Name:Mirtha De León Relation to Subscriber:Self Name:Mirtha De León Payer ID:Not on file Group ID:Not on file Type:Medicaid Address: [address] [employer] * Guarantor: Narciso De Leónis Account Type Relation to Patient Date of Phone Billing Address Personal/Family Self 1965 [address] [place] [address] HEALTH SAF[employer]Y NET PARTIAL Member Subscriber Plan / Payer (Ef fective 2017-Present) Name:Mirtha De León Relation to Subscriber:Self Name:Mirtha De León Payer ID:Not on file Group ID:Not on file Type:Medicaid Address: [address] [employer] * Guarantor: Mirtha De León Account Type Relation to Patient Date of Phone Billing Address Personal/Family Self 1965 [address] [place] [address] [employer]AF[employer] NET PARTIAL Member Subscriber Plan / Payer (Ef fective 2017-Present) Name:Mirtha De León Relation to Subscriber:Self Name:Mirtha De León Payer ID:Not on file Group ID:Not on file Type:Medicaid Address: [address] [employer] * Guarantor: Mirtha De León Account Type Relation to Patient Date of Phone Billing Address Personal/Family Self 1965 [address] [place] [address] HE[employer] SAF[employer]Y NET PARTIAL Member Subscriber Plan / Payer (Ef fective 2017-Present) Name:Mirtha De León Relation to Subscriber:Self Name:Mirtha De León Payer ID:Not on file Group ID:Not on file Type:Medicaid Address: [address] [employer] * Guarantor: Mirtha De León Account Type Relation to Patient Date of Phone Billing Address Personal/Family Self 1965 [address] [place] [address] [employer] SAF[employer]Y NET PARTIAL Member Subscriber Plan / Payer (Ef fective 2017-Present) Name:Mirtha De León Relation to Subscriber:Self Name:Mirtha De León Payer ID:Not on file Group ID:Not on file Type:Medicaid Address: [address] [employer] * Guarantor: Mirtha De León Account Type Relation to Patient Date of Phone Billing Address Personal/Family Self 1965 [address] [place] [address] HE[employer] SAF[employer]Y NET PARTIAL Member Subscriber Plan / Payer (Ef fective 2017-Present) Name:Mirtha De León Relation to Subscriber:Self Name:Mirtha De León Payer ID:Not on file Group ID:Not on file Type:Medicaid Address: [address] [employer] * Guarantor: Mirtha De León Account Type Relation to Patient Date of Phone Billing Address Personal/Family Self 1965 [address] [place] [address] HE[employer] SAF[employer]Y NET PARTIAL Member Subscriber Plan / Payer (Ef fective 2017-Present) Name:Mirtha De León Relation to Subscriber:Self Name:SarthakMirtha Payer ID:Not on file Group ID:Not on file Type:Medicaid Address: [address] [employer] * Guarantor: Sarthak Mirtha Account Type Relation to Patient Date of Phone Billing Address Personal/Family Self 1965 [address] [place] [address] [address] [place] [address] [address] DIRECT Care Teams Senior Information Security Analyst Relationship Specialty Start Date End Date Ree Suero NP PCP - General 09/16/17 Additional Source Comments The information contained in this document represents components of the legal health record. It is not the complete legal health record.[facility]
[2024-10-01 16:09] LABS: MANUAL DIFF FLAG NO
[2024-10-01 16:13] LABS: Hematocrit 43.3 % (42.0-52.0); Hemoglobin 15.2 g/dl (14.0-18.0); Imm Gran Abs Auto 0.03 X10*3/uL (0.00-0.03); Imm Gran Pct Auto 0.3 % (0.0-0.4); Lymphocytes Absolute Auto 2.7 X10*3/uL (1.2-4.9); Mean Corpuscular HGB Conc 35.1 g/dl (31.0-36.0); Mean Corpuscular Hemoglobin 31.0 pg (27.0-33.0); Mean Corpuscular Volume 88.2 fL (80.0-98.0); NRBC Abs Auto 0.000 X10*3/uL (0.0-0.012); NRBC Pct Auto 0.0 /100WBC (0.0-0.2); Platelet Count 273 X10*3/uL (160-400); Red Blood Count 4.91 X10*6/uL (4.60-5.80); White Blood Count 9.4 X10*3/uL (4.8-10.8)
[2024-10-01 16:39] LABS: Anion Gap 11 (12-20); Blood Urea Nitrogen 10 mg/dL (9-16); Calcium 9.1 mg/dL (8.4-10.2); Carbon Dioxide 33 mmol/L (22-29); Chloride 101 mmol/L (96-108); Estimated Glomerular Filt Rate > 60; Potassium 3.1 mmol/L (3.3-5.1); Sodium 142 mmol/L (135-145)
[2024-10-01 16:41] LABS: Microalbum/Creatinine Ratio Ur 17.0 ug/mg cr (<30)
== END 2024-10-01 14:09 | disposition home or self-care (01) ==
LOC: HO.HHCL 14:08
PROVIDERS: PCP Internal Medicine; Visit Provider Internal Medicine
DX: Z01.818 Encounter for other preprocedural examination (principal); E11.9 Type 2 diabetes mellitus without complications; I10 Essential (primary) hypertension
CPT/HCPCS: 36415; 80048; 82043; 82570; 85025

== ENCOUNTER 2024-10-13 13:25 | Outpatient (REF) | payer MEDICAID, SELFPAY ==
--- OUTSIDE RECORDS SUMMARY | 2023-11-29 04:30 | XMS_ITS ---
Author Organization [facility] Address [address] [place] [phone] Care Team Providers Care English Composition Teacher Name Role Phone Bere Forrest MD, Kyaw Primary Care Provide r Elvis Ayoub [phone] REASON FOR VISIT screening, hx polyps Problems Problem Type SNOMED Code ICD Code Onset Dates Problem Status W/U Status Risk Notes Problem Diverticular disease of colon (225227952) Diverticulosis of large intestine without perforation or abscess without bleeding (K57.30) Active confirmed Encounters Encounter Location Date Provider Diagnosis [facility] [place] [address], [place] [phone] 11/29/2023 Elvis Wray Colon cancer scree nelson [...] Information Progress Notes * YORDAN MCKEEOB: 1965 (59 yo M)Acc No.[id number]:11/29/2023 COLON WITH MAC Patient: TAMI ANDERSON Provider: Willie Wray MD :1965 A ge:58 Y S ex:Male Date:11/29/2023 Address: [address] [id number] Pcp:Kyaw triplett MD Subjective: * Chief Complaints: * 1 . Screening, hx polyps. * Medical History: Objective: * Vitals: Assessment: * Assessment: 1. C olon cancer screening - Z12.11 (Primary) 2 . P ersonal history of colonic polyps - Z86.0100 3 . D iverticulosis of large intestine without perforation or abscess without bleeding - K57.30 4 . O ther hemorrhoids - K64.8 ? Plan: * Treatment: * Procedure Codes: 4 5378 DIAGNOSTIC COLONOSCOPY * * The named appointment provid er may or may not be the originator of this progress note, and it is not deemed complete until electronically signed by the appointment provider. Sign off status: Pending * Provider: Willie Wray MD Date: 1 Generated for Christy henderson/Claribel/Candeitting on: 0 10/13/2024 02:41 PM EDT
--- OUTSIDE RECORDS SUMMARY | 2024-10-13 14:41 | XMS_ITS | Clinical Summary ---
Author Organization [employer] Address [address] [place] [address] Care Team Providers Care Filling And Packing Supervisor Name Role Phone Kyaw Nicole MD Primary [...] meal. 60 tablet 1 10/02/19 25 Active potassium chloride CR (Klor-Con M10) 10 MEQ ER tabletIndicatio ns:Hypokalemia Take 1 tablet (10 mEq) by mouth Once per day. Do not crush or chew. 30 tablet 3 10/03/19 25 2025 Active naproxen (Naprosyn) 500 MG tabletIndicatio ns:Pain Take 1 tablet (500 mg) by mouth with breakfast and with evening meal. 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) previously Microalbumin 04/2021 16.5 He is on [...] 6.3 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) previously Microalbumin 04/2021 16.5 He is on [...] 6.1 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) previously Microalbumin 04/2021 16.5 He is on [...] 5.7 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) previous visit Microalbumin 04/2021 16.5 He is [...] to the weight management treatment center at [facility] previously pt declines to consider surgical interventions, refuses to try GLP1s Assessment & Plan (08/06/2023 12:22 PM EDT): Pt counseled and educated about diet and exercise Pt was referred to the weight management treatment center at [facility] [place] previously pt declines to consider surgical interventions Assessment & Plan (11/22/2022 2:49 PM EDT): Pt counseled and educated about diet and exercise Pt was referred to the weight management treatment center at [facility] [place] previously pt declines to consider surgical [...] Encounters Date Type Department Care Team Description 10/02/2024 Results Follow-Up [facility] [place] [address] Kyaw Nicole MD POCT Glucose, POCT HGB A1C, Basic Metabolic Panel, Additional followed-up results: 2 10/01/2024 1:30 PM EDT Office Visit [facility] [place] [address] Kyaw Nicole MD Type 2 diabetes mellitus without complication, without long-term current use of insulin ([facility]) (Primary Dx); Essential hypertension; Preoperative examination; Preventative health care; Chronic midline low back pain without sciatica; Morbid obesity (CMS/HCC); Pain; Dietary counseling; Exercise counseling 10/01/2024 Telephone [facility] [place] B[place] [phone] Kyaw Nicole MD 10/01/2024 Travel 09/29/2024 Travel 08/07/2024 Telephone [facility] [place] BILL [address] Kyaw Nicole MD pre op 08/05/2024 Telephone [facility] [place] [phone] Kyaw Nicole MD chart prep from Last [...] X-Ray: Bitewings 09/22/2021 09/22/19 21, 05/04/2019, 11/21/2016 Dental X-Ray: Full Mouth 09/23/2023 09/21/2020, 10/27 COVID-19 Vaccine (6 - 2024-25 season) 2023 03/20/2022, 09/21/2021, 03/01/2021, Additional history exists Lipid Panel 08/30/2024 08/31/2023, 12/26, 01/27/2022 Influenza Vaccine (#1) 2024 , 11/22/2022, 12/12/2021, Additional history exists Depression Screening 11/25/2024 11/26/2023, 11/26/19 SDOH Screening 11/25/2024 11/26/2023 Diabetes: Hemoglobin A1C 04/03/2025 025, 11/26/2023, 08/06/2023, Additional history exists Alcohol/Substance Use Screening 10/01/2025 10/01/2024 Diabetes: Urine Protein Screening 10/01/2025 10/01/2024, 05/20/2021 Disability Screening 10/01/2025 10/01/2024 Tobacco Screening 10/01/2025 10/01/2024 Colonoscopy 11/28/2028 11/29/2023, 1005/2023, 06/29/2013 Colorectal Cancer Screening 11/28/2028 DTaP/Tdap/Td Vaccines [...] Procedure Name Priority Date/Time Associated Diagnosis Comments CBC WITH AUTO DIFFERENTIAL Routine 10/01/2024 2:18 PM EDT Preoperative examination ALBUMIN, RANDOM URINE W/CREATININE Routine 10/01/2024 2:18 PM EDT Type 2 diabetes mellitus without complication, without long-term current use of insulin ([facility]) BASIC METABOLIC PANEL Routine 10/01/2024 2:18 PM EDT Essential hypertension ECG 12-LEAD Routine 10/01/2024 1:50 PM EDT Preoperative examination Essential hypertension POCT GLYCATED HEMOGLOBIN, TOTAL Routine 10/01/2024 1:50 PM EDT Type 2 diabetes mellitus without complication, without long-term current use of insulin ([facility]) POCT GLUCOSE Routine 10/01/2024 1:49 PM EDT Type 2 diabetes mellitus without complication, without long-term current use of insulin ([facility]) HM COLONOSCOPY Routine 11/29/2023 LIPID PANEL, STANDARD Routine 08/31/2023 7:47 AM EDT Hypertriglyceridemia ZZZ HISTORICAL HEPATITIS C ANTIBODY RFLX Routine 05/20/2021 9:06 AM EDT INTRAORAL - COMPLETE SERIES OF RADIOGRAPHIC IMAGES Routine 09/21/2020 12:00 AM EDT PERIODIC ORAL EVALUATION - ESTABLISHED PATIENT Routine 09/21/2020 12:00 AM EDT from Last 3 Months or Most Recently Relevant to Health Maintenance Results * Albumin, Random Urine W/Creatinine (10/01/2024 2:18 PM EDT) Creatinine, Urine 339.34 mg/dL [facility] Microalbumin Urine 58.0 mg/L [facility] Microalbum Creatinine Ratio Ur 17.0 <30 ug/mg cr [facility] Comment:Albumin/Creatinine R atio Reference Ranges: Normal: < 30 ug/mg creatinine Microalbuminuria: 30 - 300 ug/mg creatinineClinical Albuminuria: > 300 ug/mg creatinine Urine (Urine, Random) 10/01/2024 2:18 PM EDT 10/01/2024 4:03 PM EDT us Kyaw Forrest MD LAB URINE ORDERABLES Final Result [facility] [address] [place] [address] [phone] * CBC auto differential (10/01/2024 2:18 PM EDT) White Blood Count 9.4 4.8 - 10.8 X10*3/uL [facility] Red Blood Count 4.91 4.60 - 5.80 X10*6/uL [facility] Hemoglobin 15.2 14.0 - 18.0 g/dl [facility] Hematocrit 43.3 42.0 - 52.0 % [facility] Mean Corpuscular Volume 88.2 80.0 - 98.0 fL [facility] Mean Corpuscular Hemoglobin 31.0 27.0 - 33.0 pg [facility] Mean Corpuscular HGB Conc 35.1 31.0 - 36.0 g/dl [facility] Red Cell Distribution Width 12.5 11.0 - 16.0 % [facility] Platelet Count 273 160 - 400 X10*3/uL [facility] Mean Platelet Volume 10.6 9.4 - 12.4 fL [facility] Neutrophils Percent Auto 60.9 45 - 73 % [facility] Imm Gran Pct Auto 0.3 0.0 - 0.4 % [facility] Lymphocytes Percent Auto 28.7 20 - 40 % [facility] Monocytes Percent Auto 8.2 2 - 11 % [facility] Eosinophils Percent Auto 1.5 0 - 4 % [facility] Basophils Percent Auto 0.4 0 - 2 % [facility] NRBC Pct Auto 0.0 0.0 - 0.2 /100WBC [facility] Neutrophils Absolute Auto 5.8 2.0 - 8.3 x10*3/uL [facility] Imm Gran Abs Auto 0.03 0.00 - 0.03 X10*3/uL [facility] Lymphocytes Absolute Auto 2.7 1.2 - 4.9 X10*3/uL [facility] Monocytes Absolute Auto 0.8 0.1 - 1.2 X10*3/uL [facility] Eosinophils Absolute Auto 0.1 0.0 - 0.4 X10*3/uL [facility] Basophils Absolute Auto 0.0 0.0 - 0.2 X10*3/uL [facility] NRBC Abs Auto 0.000 0.0 - 0.012 X10*3/uL [facility] Blood Venous blood specimen / Unknown 10/01/2024 2:18 PM EDT 10/01/2024 4:05 PM EDT us Kyaw Forrest MD LAB BLOOD ORDERABLES Final Result [facility] [address] [place] [address] [phone] * (ABNORMAL) Basic Metabolic Panel (10/01/2024 2:18 PM EDT) Sodium 142 135 - 145 mmol/L [facility] Potassium 3.1(L) 3.3 - 5.1 mmol/L [facility] Chloride 101 96 - 108 mmol/L [facility] Carbon Dioxide 33(H) 22 - 29 mmol/L [facility] Anion Gap 11(L) 12 - 20 [facility] Urea Nitrogen (BUN) 10 9 - 16 mg/dL [facility] Creatinine, Serum 0.75 0.5 - 1.4 mg/dL [facility] Estimated Glomerular Filt Rate >60 [facility] Comment:Chronic Kidney Disea se: Estimated GFR < 60 mL/min/1.08o5[place] Kidney Disease: Estimated GFR < 15 mL/min/1.73m2 Glucose 100 60 - 115 mg/dL [facility] Calcium 9.1 8.4 - 10.2 mg/dL [facility] Blood Venous blood specimen / Unknown 10/01/2024 2:18 PM EDT 10/01/2024 4:10 PM EDT Kyaw Forrest MD LAB BLOOD ORDERABLES Final Result [facility] [address] [place] [phone] * ECG 12 lead (10/01/2024 1:50 PM EDT) Narrative Kyaw Nicole MD - 10/01/2024 1:50 PM EDT Images from the original result were not included. NSR, HR [address]-t changes Kyaw Forrest MD ECG ORDERABLES Final Result * (ABNORMAL) POCT HGB A1C (10/01/2024 1:50 PM EDT) Pathologist [facility] [place] Hemoglobin A1C 6.2(A) 4.0 - 5.7 % QC Media Lot # [id number] Lot# Expiration Date Blood 10/01/2024 1:50 PM EDT Kyaw Forrest MD POINT OF CARE TEST EN TER/EDIT ORDERABLES Final Result * POCT Glucose (10/01/2024 1:49 PM EDT) Pathologist [facility] [place] Glucose Blood, POC 105 60 - 200 mg/dL QC Media Lot # [id number] Lot# Expiration Date 328,[id number] Blood Capillary blood specimen / Unknown 10/01/2024 1:49 PM EDT Kyaw Forrest MD POINT OF CARE TEST EN TER/EDIT ORDERABLES Final Result * Hm Colonoscopy (11/29/2023) Colonoscopy Normal Normal Comment:Dr. Wray Historical Provider HEALTH MAINTENANCE Final Result * (ABNORMAL) Lipid Panel, Standard (08/31/2023 7:47 AM EDT) Pathologist [facility] [place] Triglycerides 191(H) <150 mg/dL [facility] Comment:Desirable Triglyceri de: less than 150 mg/dLBorderline High Triglyceride 150-199 mg/dLHigh Triglyceride: 200-499 mg/dLVery High Triglyceride: greater than or equal to 5OO mg/dL Cholesterol 182 <200 mg/dL [facility] Comment:Desirable Cholestero l: less than 200 mg/dLBorderline High Cholesterol: 200-239 mg/dLHigh Cholesterol: greater than 239 mg/dL LDL Cholesterol Calculated 97 <100 mg/dL [facility] Comment:Desirable LDL: less than 100 mg/dLNear Optimal/Above Optimal LDL: 110- 129 mg/dLBorderline High LDL: 130-159 mg/dLHigh LDL: 160-189 mg/dLVery High LDL: greater than or equal to 190 mg/dL HDL Cholesterol 47 >40 mg/dL [facility] Comment:Desirable HDL: great er than 40 mg/dL Note: This HDL assay may give artificially low results in patients with liver disease. Blood Venous blood specimen / Unknown 08/31/2023 7:47 AM EDT 08/31/2023 7:49 AM EDT Kyaw Forrest MD LAB BLOOD ORDERABLES Final Result [facility] [address] [place] [phone] * HEPATITIS C ANTIBODY RFLX (05/20/2021 9:06 AM EDT) Pathologist [facility] [place] Hepatitis C Antibody Nonreactive Nonreactive [facility] Comment: Antibodies to HCV not detected; does not exclude early acute HCV infection. 05/20/2021 9:06 AM EDT us Kyaw Forrest MD HISTORICAL/NON ORDERA BLE LABS Final Result [facility] [address] [place] [address], from Last 3 Months or Most Recently Relevant to Health Maintenance Insurance [facility] MEDICAID STAND ADULT Care Teams Filling And Packing Supervisor Relationship Specialty Start Date End Date Kyaw Nicole MD [address] [place] [phone] PCP - General Internal Medicine 01/30/18
--- OUTSIDE RECORDS SUMMARY | 2024-10-13 14:41 | XMS_ITS | Clinical Summary ---
Demographics Address [address] [facility] [place] [address] Home Phone Preferred Language Algerian Marital Status /Civil Union Methodist Affiliation Unknown Race Unknown Ethnic Group or Author Organization [facility] Address [address] [place] [address] Phone Care Team Providers Care Internet Assessor Name Role Phone Pio Villafana NP, Ree [...] Billing Address Personal/Family Self 1965 [address] [place] [address] [employer] NET PARTIAL Member Subscriber Plan / Payer (Ef fective 2017-Present) Name:Mirtha De León Relation to Subscriber:Self Name:Mirtha De León Payer ID:Not on file Group ID:Not on file Type:Medicaid Address: [address] [employer] * Guarantor: Mirtha De León Account Type Relation to Patient Date of Phone Billing Address Personal/Family Self 1965 [address] [place] [address] [employer]AF[employer] NET PARTIAL Member Subscriber Plan / Payer (Ef fective 2017-Present) Name:Mirtha De León Relation to Subscriber:Self Name:Mirtha De León Payer ID:Not on file Group ID:Not on file Type:Medicaid Address: [address] [employer] * Guarantor: Narciso De Leónis Account Type Relation to Patient Date of Phone Billing Address Personal/Family Self 1965 [address] [place] [address] [employer]AF[employer] NET PARTIAL Member Subscriber Plan / Payer (Ef fective 2017-Present) Name:Mirtha De León Relation to Subscriber:Self Name:Mirtha De León Payer ID:Not on file Group ID:Not on file Type:Medicaid Address: [address] [employer] * Guarantor: Mirtha De León Account Type Relation to Patient Date of Phone Billing Address Personal/Family Self 1965 [address] [place] [address] [employer] NET PARTIAL Member Subscriber Plan / Payer (Ef fective 2017-Present) Name:Mirtha De León Relation to Subscriber:Self Name:Mirtha De León Payer ID:Not on file Group ID:Not on file Type:Medicaid Address: [address] [employer] * Guarantor: Mirtha De León Account Type Relation to Patient Date of Phone Billing Address Personal/Family Self 1965 [address] [place] [address] [employer]AF[employer] NET PARTIAL Member Subscriber Plan / Payer (Ef fective 2017-Present) Name:Mirtha De León Relation to Subscriber:Self Name:Mirtha De León Payer ID:Not on file Group ID:Not on file Type:Medicaid Address: [address] [employer] * Guarantor: Mirtha De León Account Type Relation to Patient Date of Phone Billing Address Personal/Family Self 1965 [address] [place] [address] [employer] NET PARTIAL Member Subscriber Plan / Payer (Ef fective 2017-Present) Name:Mirtha De León Relation to Subscriber:Self Name:Mirtha De León Payer ID:Not on file Group ID:Not on file Type:Medicaid Address: [address] [employer] * Guarantor: Mirtha De León Account Type Relation to Patient Date of Phone Billing Address Personal/Family Self 1965 [address] [place] [address] [employer] NET PARTIAL Member Subscriber Plan / Payer (Ef fective 2017-Present) Name:Mirtha De León Relation to Subscriber:Self Name:Mirtha De León Payer ID:Not on file Group ID:Not on file Type:Medicaid Address: [address] [employer] * Guarantor: Mirtha De León Account Type Relation to Patient Date of Phone Billing Address Personal/Family Self 1965 [address] [place] [address] [employer]AF[employer] NET PARTIAL Member Subscriber Plan / Payer (Ef fective 2017-Present) Name:Mirtha De León Relation to Subscriber:Self Name:SarthakMirtha Payer ID:Not on file Group ID:Not on file Type:Medicaid Address: [address] [employer] * Guarantor: Sarthak Mirtha Account Type Relation to Patient Date of Phone Billing Address Personal/Family Self 1965 [address] [place] [address] [address] [place] [place] [address] DIRECT Care Teams Internet Assessor Relationship Specialty Start Date End Date Ree Suero NP PCP - General 09/16/17 Additional Source Comments The information contained in this document represents components of the legal health record. It is not the complete legal health record.[facility]
[2024-10-13 14:42] LABS: Anion Gap 14 (12-20); Blood Urea Nitrogen 11 mg/dL (9-16); Calcium 9.1 mg/dL (8.4-10.2); Carbon Dioxide 29 mmol/L (22-29); Chloride 106 mmol/L (96-108); Estimated Glomerular Filt Rate > 60; Potassium 4.2 mmol/L (3.3-5.1); Sodium 145 mmol/L (135-145)
== END 2024-10-13 13:26 | disposition home or self-care (01) ==
LOC: HO.LAB 13:25
PROVIDERS: PCP Internal Medicine; Visit Provider Internal Medicine
DX: E87.6 Hypokalemia (principal)
CPT/HCPCS: 36415; 80048

== ENCOUNTER 2024-10-19 06:17 | Day surgery (SDC) | payer MEDICAID, SELFPAY ==
[2024-10-12 16:52] VITALS: BMI 44.0
--- NOTE | 2024-10-16 13:50 | HO.ANESPROP2 ---
Documented by User: Missy Altamirano NP 10/16/24 13:51 HPI - Anesthesia Eval Consult details Narrative: 59 yr old male for Strabismus Right Eye s/p lumbar decompression 01/2024 with GA ANGELA on CPAP PMFSH Active Problems Active Problems: All Active Problems Status post lumbar spine surgery for decompression of spinal cord (Acute) Lumbar back pain with radiculopathy affecting left lower extremity (Acute) Lumbosacral spondylosis (Acute) Diabetes mellitus (Acute) Osteoarthritis of right knee (Acute) Lumbar spinal stenosis (Acute) Lumbar degenerative disc disease (Acute) ANGELA on CPAP (Acute) Morbid obesity (Acute) Past Medical History Medical History Tooth ache Smoker Bilateral cataracts Lumbar spinal stenosis Lumbar degenerative disc disease Other male erectile dysfunction Chronic midline low back pain without sciatica Hypertriglyceridemia Onychomycosis Bunion, right foot Alcoholism Male hypogonadism Tubular adenoma ANGELA on CPAP Morbid obesity Diabetes HTN (hypertension) Obese Family History Family history of problems with anesthesia: No Surgical History Surgical History History of lumbar surgery H/O colonoscopy History of bilateral cataract extraction History of surgery History of Problems with Anesthesia: No Social History Social History Are you a primary managed care specialist to a significant other at home: No Do you presently have visiting nurse or other home services: No Alcohol intake: current Alcohol intake frequency: a few times a week Alcohol type: beer Patient Tobacco Use Status: Current everyday Tobacco user Tobacco use type: Cigarette Cigarette Packs Per Day: 0.5 Cigarettes Per Day: 5 Have you been hit, kicked, punched, or otherwise hurt by someone within the past year? If so, by whom?: No Are you DNR?: No Advance Directives: No Advance Directives Information Provided: Yes Current occupational status: employed Current occupation: right hand dominant Meds Allergies Allergy/AdvReac Type Severity Reaction Status Date / Time No Known Allergies (No Known Allergy Verified 08/03/24 14:32 Allergies*) Home Medications ?Medication ?Instructions ?Recorded ?Confirmed ?Last Taken ?Type chlorthalidone 50 mg tablet 50 mg PO DAILY 01/15/22 10/19/24 10/19/24 History metformin 500 mg tablet,extended 500 mg PO QAM 11/15/22 10/19/24 10/18/24 History release 24 hr fenofibrate nanocrystallized 48 mg 48 mg PO DAILY 08/27/23 10/19/24 10/18/24 History tablet acetaminophen 650 mg 650 mg PO TID PRN Pain (Scale 10/19/24 10/19/24 10/18/24 History tablet,extended release Score 1-3) Exam Height,Weight and Vital Signs: Height 5 ft 5 in Weight 120 kg Assessment and Plan Final Anesthetic Review Family History of Problems with Anesthesia: No History of Problems with Anesthesia: No Documented by User: Alaina Wright MD 10/19/24 08:40 PMFSH Past Medical History Medical History Tooth ache Smoker Bilateral cataracts Lumbar spinal stenosis Lumbar degenerative disc disease Other male erectile dysfunction Chronic midline low back pain without sciatica Hypertriglyceridemia Onychomycosis Bunion, right foot Alcoholism Male hypogonadism Tubular adenoma ANGELA on CPAP Morbid obesity Diabetes HTN (hypertension) Obese Surgical History Surgical History History of lumbar surgery H/O colonoscopy History of bilateral cataract extraction History of surgery Social History Social History Are you a primary managed care specialist to a significant other at home: No Do you presently have visiting nurse or other home services: No Alcohol intake: current Alcohol intake frequency: a few times a week Alcohol type: beer Patient Tobacco Use Status: Current everyday Tobacco user Tobacco use type: Cigarette Cigarette Packs Per Day: 0.5 Cigarettes Per Day: 5 Have you been hit, kicked, punched, or otherwise hurt by someone within the past year? If so, by whom?: No Are you DNR?: No Advance Directives: No Advance Directives Information Provided: Yes Current occupational status: employed Current occupation: right hand dominant Meds Allergies Allergy/AdvReac Type Severity Reaction Status Date / Time No Known Allergies (No Known Allergy Verified 08/03/24 14:32 Allergies*) Home Medications ?Medication ?Instructions ?Recorded ?Confirmed ?Last Taken ?Type chlorthalidone 50 mg tablet 50 mg PO DAILY 01/15/22 10/19/24 10/19/24 History metformin 500 mg tablet,extended 500 mg PO QAM 11/15/22 10/19/24 10/18/24 History release 24 hr fenofibrate nanocrystallized 48 mg 48 mg PO DAILY 08/27/23 10/19/24 10/18/24 History tablet acetaminophen 650 mg 650 mg PO TID PRN Pain (Scale 10/19/24 10/19/24 10/18/24 History tablet,extended release Score 1-3) Exam Airway Mallampati Class: III TM Dist: >3cm Neck ROM: Full Loose/Missing/Broken Teeth: No Heart: RRR Lungs: CTA Assessment and Plan Assessment Anesthesia Assessment: Anesthesia Plan Discussed and Chart Reviewed Final Anesthetic Review NPO: Yes ASA Class: III Final Preanesthetic Review: Consent Obtained/Reviewed Patient Risk: Intermediate Procedure Risk: Low Anesthetic Plan Anesthetic Plan: GA Disposition: Standard PACU
[2024-10-19 06:32] VITALS: BP 152/74; PULSE 70; RESP 18; TEMP 36.4; O2SAT 96; BMI 45.6
[2024-10-19 06:45] LABS: Glucose, Whole Blood 114 mg/dL (60-115)
[2024-10-19] MEDS: Lactated Ringers 500 ML 50 ML IV (06:48)
--- NOTE | 2024-10-19 07:21 | MHC.SHP ---
Pre-Procedural Eval Section A - 24 Hr Update-Section A only Date of Service: 10/19/24 The patient is an INPATIENT: No Changes since office visit: No Cold of Flu in the past 2 weeks, No New Medical Problems, No Changes in Medication and No Patient answered all questions The patient has been examined within 24 hours of the surgical procedure. The History & Physical has been completed within 30 days and I have reviewed it.: Yes Section B - Complete if H&P > 30 days Chief Complaint: Alternating exotropia Allergies: Allergies Allergy/AdvReac Type Severity Reaction Status Date / Time No Known Allergies (No Known Allergy Verified 08/03/24 14:32 Allergies*) Plan Diagnosis/Plan: Unchanged I have reviewed the history and physical and performed a pertinent physical examination on my patient. No changes have occurred unless specified. Time Spent With Patient Time: Total time managing care of this patient today ____ minutes.
[2024-10-19 09:22] VITALS: BP 123/75; PULSE 72; RESP 18; TEMP 36.2; O2SAT 100
[2024-10-19 09:27] VITALS: BP 123/66; PULSE 74; RESP 13; O2SAT 100
[2024-10-19 09:32] VITALS: BP 127/74; PULSE 72; RESP 13; O2SAT 96
[2024-10-19 09:37] VITALS: BP 128/73; PULSE 71; RESP 14; O2SAT 95
[2024-10-19 09:52] VITALS: BP 131/68; PULSE 79; RESP 16; TEMP 36.1; O2SAT 96
--- NOTE | 2024-10-20 07:34 | OP_ITS ---
DATE OF SERVICE: 10/19/2024 SURGEON: Arnoldo Oakes MD PREOPERATIVE DIAGNOSIS: POSTOPERATIVE DIAGNOSIS: Exotropia. PROCEDURE PERFORMED: ESTIMATED BLOOD LOSS: COMPLICATIONS: ANESTHESIA: General. ASSISTANTS: SPECIMENS: INDICATION: Exotropia. DESCRIPTION OF PROCEDURE: After obtaining informed consent, the patient was brought to the operating room suite and placed in supine position. After having placed under general anesthesia, attention was directed to the right lateral rectus muscle. An incision was created overlying the lateral rectus muscle utilizing Carolina scissors. The lateral rectus muscle was then identified with sequential muscle hook technique. A 6-0 Vicryl suture was placed through the muscle insertion site with a locking stitch on each margin of the muscle and the muscle was then resected from the globe and positioned 7.5 mm posteriorly to the original insertion site. The muscle was then sutured in place. Remnant piece of the Vicryl was then utilized to close the conjunctival tissue. Attention was then directed to the medial rectus muscle where the conjunctiva was incised overlying the rectus muscle. The muscle was then identified with sequential muscle hook technique. A suture was passed 6 mm posterior to the original insertion site with the locking stitch on each margin of the muscle. The muscle was then resected off the globe and the muscle was repositioned after 6 mm section of muscle was removed to the original insertion site. The conjunctiva was then closed with running 6x0 Vicryl suture. The patient tolerated the procedure well, and erythromycin was placed in the eye. The patient will be seen in followup. MD MORENA Johns/MODL / [id number] MTDD
== END 2024-10-19 10:39 | disposition home or self-care (01) ==
PROVIDERS: PCP Internal Medicine; Visit Provider Ophthalmology
PROC: (CPT 67312; principal; 2024-10-19 08:00)
DX: H50.15 Alternating exotropia (principal); Z96.1 Presence of intraocular lens; I10 Essential (primary) hypertension; E11.9 Type 2 diabetes mellitus without complications; G47.33 Obstructive sleep apnea (adult) (pediatric); F10.20 Alcohol dependence, uncomplicated; F17.210 Nicotine dependence, cigarettes, uncomplicated; E66.01 Morbid (severe) obesity due to excess calories; Z99.89 Dependence on other enabling machines and devices; Z79.84 Long term (current) use of oral hypoglycemic drugs; Z88.8 Allergy status to other drugs, medicaments and biological substances; Z98.890 Other specified postprocedural states
CPT/HCPCS: 67312; 82947; 88304; J1885; J2003; J2250; J2405; J2704; J3010

== ENCOUNTER 2024-12-09 13:24 | Outpatient (REF) | payer MEDICAID, SELFPAY ==
--- OUTSIDE RECORDS SUMMARY | 2023-11-29 04:30 | XMS_ITS ---
Author Organization [facility] Address [address] [place] [id number] Care Team Providers Care Stone Paver Name Role Phone Bere Forrest MD, Kyaw Primary Care Provide r Elvis Ayoub [phone] REASON FOR VISIT screening, hx polyps Problems Problem Type SNOMED Code ICD Code Onset Dates Problem Status W/U Status Risk Notes Problem Diverticular disease of colon (368625517) Diverticulosis of large intestine without perforation or abscess without bleeding (K57.30) Active confirmed Encounters Encounter Location Date Provider Diagnosis [facility] Outpatient [address], [place] [id number] 11/29/2023 Elvis Wray Colon cancer scree nelson [...] * YORDAN MCKEEOB: 1965 (59 yo M)Acc No.[id number]:11/29/2023 COLON WITH MAC Patient: TAMI ANDERSON Provider: Willie Wray MD :1965 A ge:58 Y S ex:Male Date:11/29/2023 Address: [address] [id number] Pcp:Kyaw triplett MD Subjective: * Chief Complaints: [...] Pending * Provider: Willie Wray MD Date: Generated for Christy henderson/Claribel/Candeitting on: 05:05 PM EDT
[2024-12-09 14:16] LABS: Anion Gap 11 (12-20); Blood Urea Nitrogen 9 mg/dL (9-16); Calcium 9.0 mg/dL (8.4-10.2); Carbon Dioxide 28 mmol/L (22-29); Chloride 107 mmol/L (96-108); Cholesterol 161 mg/dL (<200); Estimated Glomerular Filt Rate > 60; HDL Cholesterol 49 mg/dL (>40); Potassium 3.9 mmol/L (3.3-5.1); Sodium 142 mmol/L (135-145); Triglycerides 153 mg/dL (<150)
--- OUTSIDE RECORDS SUMMARY | 2024-12-09 17:05 | XMS_ITS | Patient Health Record ---
Demographics Address [address] [place] [address] Email Address Preferred Language en Marital Status Unknown Baptism Affiliation Unknown Race or A laska Lime Additional Race(s) Jez Ethnic Group or Author Organization [facility] Address [address] [place] [address] Support Name Relationship Address Phone CELSO MATTA Emergency Contact [address] [place] [address] TAMI MCKEE Guarantor Unknown Care Team Providers Care Band Booker Name Role Phone Bere Forrest MD, Kyaw Primary Care Provide r Unavailable Elvis Wray Unavailable [phone] Allergies No Known Allergies Reason For Referral No Information Medications Medication SIG (Take, Route, Frequency, Duration) Notes Start Date End Date Status metFORMIN HCl ER 500 MG TAKE 1 TABLET BY MOUTH EVERY DAY WITH THE EVENING MEAL Oral; Duration: 90 Active Chlorthalidone 50 MG Oral; Duration: 90 Active Fenofibrate 48 MG 1 tablet Orally Once a day; Duration: 30 day(s) Active MiraLax (colon prep) 17 GM/SCOOP 1 238 Gm bottle mixed with Gatorade or Crystal Light Orally begin at 5:00 p.m. the day before the procedure; Duration: 1 day 08/10/2023 Active Clotrimazole 1 % External; Duration: 28 Active Dulcolax (colon prep) 5 MG take at 3:00 p.m and 7:00p.m. Orally two tablets twice a day for one day; Duration: 1 day 08/10/2023 Active Naproxen 500 MG TAKE 1 TABLET BY JOHN WITH BREAKFAST AND EVENING MEAL Oral; Duration: 15 Active Social History Tobacco Use: Social History Observation Description Date Details (start date - stop date) Current Smoker NA - NA Tobacco Use/Smoking Question Answer Notes Patient is [...] drinks (2 points) Points 6 Interpretation Positive Section Notes: Smokes 5 cigs QD, 6-8 beers per day Problems Problem Type SNOMED Code ICD Code Onset Dates Problem Status W/U Status Risk Notes Problem Colon cancer screening (225770918) Colon cancer screening (Z12.11) Active confirmed Problem Diverticular disease of colon (461610690) Diverticulosis of large intestine without perforation or abscess without bleeding (K57.30) Active confirmed Problem Preprocedural examination (054112465138930) Preprocedural examination (Z01.818) Active confirmed Problem History of polyp of colon (situation) (532428243) History of colon polyps (Z86.010) Active confirmed Plan Of Treatment Future Test Test Name Order Date COLONOSCOPY 08/07/2023 Insurance Providers Payer Name Payer Address Payer Phone Subscriber Number Group Number Insured Name Patient Relationship to Insured Coverage Start Date Coverage End Date [facility] [address] [place] [place] [phone] [id number] TAMI MCKEE Self - patient is the insured Medical (General) History Medical History History ICD Code NIDDM Hypertension Sleep apnea/cpap Hypertriglyceridemia Tubular adenoma--last colono scopy approximately 2016, and his first colonoscopy was in approximately 2011 Denies [place],DM,CVA,Lung disease,renal dise ase Surgical History Surgery Date(Month/Year) hand surgery as child left leg veins
--- OUTSIDE RECORDS SUMMARY | 2024-12-09 17:05 | XMS_ITS | Data Portability ---
Author Organization [facility] Address [address] [place] [address] Care Team Providers Care Polymerization Helper Name Role Phone MAGNOLIA SERRANO Primary Care Provider Assessment Encounter Date Assessment Date Assessment LastModified by Organization Details LastModified Time 01/24/2024 01/24/2024 Foot and Ankle N ew Patient Note CHIEF COMPLAINT: Right hallux valgus HPI: Mirtha presents for initial evaluation with me of right forefoot pain. Previously seen by RIGO Bui who initiated conservative measures. Reports the medial eminence of his hallux have been significantly bothering him during work over the last summer. He works seasonally and his season ended in November and since then his pain has significantly improved. Is not bothering him at this point. Pain rating is 0 out of 10. Has tried change in shoewear and padding. No further complaints. Lives in [place], works at a [employer] seasonally, diabetic, A1c in the sixes, smokes 5 to 6 cigarettes a day Past family history, medical history, social history, allergies, and review of systems has been reviewed, updated and are located in the patient's chart. PHYSICAL EXAM: Constitutional: Overweight individual in no acute distress Psychiatric: Alert and oriented Respiratory: Unlabored breathing Lymphatic: No lymphadenopathy in the foot/ankle Skin: No open wounds CV: Palpable pedal pulses Neuro: Light touch grossly intact MSK: Focused examination of the right foot and ankle- On standing exam ankle and hindfoot alignment is grossly appropriate. Mild pes planus. Wide forefoot. Mild hallux valgus on the right. Nontender over the medial eminence. Nontender at the MTP joint. Supple MTP range of motion. Flexible hallux valgus. No other forefoot pain or deformity. Motor exam- intact dorsiflexion/plant arflexion, inversion/eversion Sensory exam- reports sensation intact to light touch SP/DP/S/S/T distributions Palpable DP/PT pulses, foot warm and well perfused, appropriate capillary refill Calf is soft, supple, non-tender IMAGING: Previous weightbearing x-rays of the right foot reveal mild hallux valgus. No acute bony abnormality. ASSESSMENT: right hallux valgus, mild PLAN: We discussed the diagnosis and treatment plan moving forward. Emphasized conservative measures and provided reassurance. We had a detailed discussion regarding symptomatic hallux valgus/bunion including the natural history, pathology, treatment options including both conservative and surgical. From a conservative standpoint I recommend good supportive sneakers with a wide toe box that are accommodative. Consider a mesh toebox to prevent rubbing. Can consider bunion padding as well as toe spacers to offload the forefoot. Best conservative options are finding shoe wear that does not aggravate bunion symptoms and offload areas of increased pressure. Surgery is an option when conservative measures fail. Indications that conservative measures are failing include pain despite appropriate shoewear, impingement of the lesser toes, worsening deformity, development of deformity of the lesser toes. He is currently asymptomatic. Happy with conservative treatment. Plan to see him back on an as-needed basis. Patient agrees with the plan, all questions answered. Speech recognition sheet hanger software was used to create portions of this document. An attempt at proofreading has been made to minimize errors. Please call for corrections. Not available 01/24/2024 11:51:42 Plan of Treatment Reminders Order Date Submit Date Provider Last Modified By Organization Details Last Modified Time Details Appointments None record ed. Lab None record ed. Referral None record ed. Procedures None record ed. Surgeries None record ed. Imaging XR, foot, 3 or more view - room 120 new 3v foot wb 024 12/31/19 24 [id number] [facility], [address], [place], [address], 4 16:56:01 Medication Orders None record ed. Patient TargetsNo targets recorded. Patient InstructionsNo instructions recorded. Reason for Referral None Reported. Results Created Date Observation Date Name Description Value Unit Range Abnormal Flag Note LastModifiedBy Organization Detail LastModifiedTime 12/31/19 24 12/31/2023 XR, foot, 3 or more view http:/ [email or web address] ?Encry pted=s Simone YD8dLq bEUv6g %2BXZw aYqtaq 0bqfl% 2Fg9IQ a4ajBk vP9nXo QUaueC m3YtLR FvZlgJ JJ8mAn HZtai3 6b0939 AC0Kqa HiCVaW gKiQtr MwF INTERFACE [facility] Office [address] [facility] [address], [place], [address], 12/31/2023 11:12:40 12/31/19 24 12/31/2023 XR, foot, 3 or more view http:/ [email or web address] ?Encry pted=aram Nichols YD8dLq bEUv6g %2BXZw aYqtaq 0bqfl% 2Fg9IQ a4ajBk vP9nXo QUaueC m3YtLR FvZlgJ JJ8mAn HZtai3 1p1194 AC0Kqa HiCVaW gKiQtr MwF INTERFACE [facility] Office [address] [facility] [address], [place], [address], 12/31/2023 11:12:42 Result Notes Documentation Provider Name and Address Organization Details Recorded Time Xr, Foot, 3 Or More View : [email or web address]? Encrypted=qoVjOrlNU3hZjbI Uv6g%7HLLrbLpgug7vgbb%2Fg 6NXs8iiBoaP3zLiCVdyrCw6Wj JCAcAphPUT1sEwNNasj15x071 4ML9OcuFiOSbZkPhSmtDnT Not Available [facility] 12/31/2023 11:12: 41 Xr, Foot, 3 Or More View : [email or web address] Encrypted=azZwDmoWN1uXvtA Uv6g%5IEJqzSpzxz2kquf%2Fg 8OGv5qaSdjP4tYxOCkgmEh6Fb AFZhJmrEGT1kPxELjxr70w522 8LN5EoqAzGNhWxIrJrkMxT Not Available [facility] 12/31/2023 11:12: 43 Medical Equipment None Reported. Medications Name Sig Start Date Stop Date Status Note LastModified by Organization Details LastModified Time chlorthalidon e 50 mg tablet active Not Available Not Available Not Available bisacodyl 5 mg tablet,delaye d release active Not Available Not Available No t Available polyethylene glycol 3350 17 gram/dose oral powder MIX THE CONTENTS OF ONE BOTTLE WITH GATORADE OR CRYSTAL LIGHT AND DRINK BY MOUTH BEGINNING AT 5PM THE DAY BEFORE PROCEDURE DIRECTED active Not Available Not Available No t Available metformin ER 500 mg tablet,extend ed release 24 hr TAKE 1 TABLET BY MOUTH EVERY DAY WITH THE EVENING MEAL active Not Available Not Available No t Available clotrimazole 1 % topical cream active Not Available Not Available Not Available naproxen 500 mg tablet TAKE 1 TABLET BY MOUTH TWICE DAILY FOR PAIN active Not Available Not Available No t Available potassium chloride ER 10 mEq tablet,extend ed release(part/ cryst) active Not Available Not Available Not Available Cialis 10 mg tablet TAKE 1 TABLET BY MOUTH EVERY DAY NEEDED active Not Available Not Available No t Available fenofibrate nanocrystalli zed 48 mg tablet active Not Available Not Available Not Available Vitals Date Recorded Body height Body mass index (BMI) Body weight Provider Name and Address Organization Details Last Updated DateTime 12/31/2023 170.18 cm 42 kg/m2 265878.76 g María nails [facility] 12/31/2023 11:05:29 Date Recorded Body height Body mass index (BMI) Body weight Provider Name and Address Organization Details Last Updated DateTime 01/24/2024 170.18 cm 42 kg/m2 988607.76 g Sujey De León [facility] 01/24/2024 09:10:24 Social History None recorded. Functional Status None recorded. Mental Status None recorded. Family History Nothing Reported. Medical History No medical history recorded. Past Encounters Encounter ID Performer Location Encounter Start Date Encounter Closed Date Diagnosis/Indication Diagnosis SNOMED-CT Code Diagnosis ICD10 Code Diagnosis IMO Codes Diagnosis Note [id number] Paloma Shearer PA-C [facility] [address] [place] [address] 12/31/2023 10:08:10 01/20/2024 14:19:29 Pain in right foot [id number] 38791 M79.671 [id number] Emigdio Layne MD [facility] [address] [place] [address] 01/24/2024 09:06:06 02/11/2024 09:15:51 Hallux valgus of right foot 6142752271 M20.11 [id number] Health Concerns Section Related Observation LastModified by Organization Detai ls LastModified Time None Recorded Concern Status LastModified by Organization Details LastModified Time None Recorded Advance Directives Directive None Recorded Payers Insurance Date Sequence Insurance Name Policy Number Policy Mitchell Covered Member ID Mitchell Member ID Guarantor Name 02/11/2024 1 [place] [employer] [employer] (MEDICAID) Mirtha Cortes [id number] Mirtha Cortes Notes Date Note Type Note Provider Name and Address Organization Details Recorded Time 12/31/2023 text/html I am seeing this patient under the supervision of Dr. Knowles who was available but who did not see the patient. HPI: Patient is a 58-year-old male presenting to the office today for right foot bunion. Reports this has been giving him pain for years now but has progressively been getting worse. Reports the pain is worse with shoe wear. 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 Reports sometimes his boss would need to send him home because of the pain. He has tried conservative treatment such as toe braces with minimal relief. He is here today for orthopedic consultation. Patient is a diabetic, reports his last hemoglobin A1c was around 6. He reports he smokes about 5 cigarettes a day. Past family, medical, social history and review of systems has been reviewed, updated and is located in the patient's chart. Patient is a diabetic, reports his last hemoglobin A1c was around 6. He reports he smokes about 5 cigarettes a day. Examination: The patient is well appearing, alert and oriented x3 and in no acute distress. Gait is non-antalgic. Right hallux valgus alignment appreciated on stance, which is passively correctable on exam. No toe overlap noted on stance. On inspection of the right foot, there is mild edema and erythema about the medial eminence of the right foot. Patient is tender in this region. Otherwise no edema, erythema, or ecchymosis. Skin is intact, no open wounds. No calluses noted between the great toe and 2nd toe bilaterally. Nontender about the rest of the foot and ankle. Range of motion is full and strength is intact. EHL and FHL intact. Neurovascularly intact distally. No gross instability. X-rays ordered, obtained and reviewed independently today at [facility]: 3 view x-rays of right foot reveal mild hallux valgus alignment of the right foot. Some arthritic changes noted about the ankle and hindfoot on lateral view. There are enthesophytes at the plantar aspect of the calcaneus and the posterior aspect of the calcaneus at the plantar fascia insertion and Achilles insertion respectively. No acute fractures or dislocations noted. Impression Right hallux valgus Plan: I discussed my findings and the situation with the patient. We discussed conservative treatment options at this time including topical and oral anti-inflammatories, shoes with a wider toe box, bunion gel sleeve, toe separator, and hallux control strap. We also discussed surgical treatment options and risks and benefits as well as recovery time. Patient would like to follow-up with one of our foot and ankle surgeons to discuss possible surgical intervention at this time. Follow-up was arranged. Patient understands and agrees with this plan. All questions were answered. Speech recognition sheet hanger software was used to create portions of this document. An attempt at proofreading has been made to minimize errors. Please call for corrections. Paloma Shearer PA-C [address] [facility] [address], [place], [address], [facility] 12/31/2023 13:30:12
--- OUTSIDE RECORDS SUMMARY | 2024-12-09 17:05 | XMS_ITS | Encounter Summary ---
Demographics Address [address] [place] [address] Mobile Phone Home Phone Preferred Language en Marital Status Yazdanism Affiliation Unknown Race Other Race Ethnic Group Unknown Author Organization [employer] Address [address] [facility] [address] [place] [address] Care Team Providers Care Weigher Operator Name Role Phone Kyaw Nicole MD Primary Care Provide r Encounter Details Date Type Department Care Team ([facility] st Contact Info) Description 11/09/2022 Orders Only [facility] [address] [place] [address] Michelle Caicedo LPN Social History Tobacco Use [...] on filedocumented in this encounter Care Teams Weigher Operator Relationship Specialty Start Date End Date Kyaw Nicole MD [address] [place] [id number] PCP - General Internal Medicine 01/30/18 documented as of this encounter
--- OUTSIDE RECORDS SUMMARY | 2024-12-09 17:05 | XMS_ITS | Encounter Summary ---
Demographics Address [address] [place] [address] Mobile Phone Home Phone Preferred Language en Marital Status Cheondoism Affiliation Unknown Race Other Race Ethnic Group Unknown Author Organization [facility] Address [address] [facility] [address] [place] [address] Care Team Providers Care Nuclear Medicine Supervisor Name Role Phone Kyaw Nicole MD Primary Care Provide r Reason for Visit * Reason Comments Med Refill Encounter Details Date Type Department Care Team ([facility] Contact Info) Description 11/04/2024 Refill [facility] [address] [place], [place] [phone] Kyaw Nicole MD [address] [place] [address] Pain Social History Tobacco Use Types Packs/Day Years [...] documented as of this encounter Visit Diagnoses Diagnosis Pain Generalized pain documented in this encounter Additional Health Concerns Assessment Noted Time PHQ-9 Depression Total Score: 0 11/26/19 24 2:40 PM EDT documented as of this encounter Care Teams Nuclear Medicine Supervisor Relationship Specialty Start Date End Date Kyaw Nicole MD [address] [place] [id number] PCP - General Internal Medicine 01/30/18 documented as of this encounter
--- OUTSIDE RECORDS SUMMARY | 2024-12-09 17:05 | XMS_ITS | Clinical Summary ---
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 30 tablet 6 08/06/19 24 Active clotrimazole (Lotrimin) 1 % cream APPLY EXTERNALLY TO THE AFFECTED AREA AND SURROUNDING AREAS OF SKIN TWICE DAILY(MORNING AND EVENING) 60 g 6 11/26/19 24 Active chlorthalidone (Hygroton) 50 MG tabletIndication s:Essential hypertension TAKE 1 TABLET(50 MG) BY MOUTH IN THE MORNING 90 tablet 1 03/03/19 25 Active metFORMIN XR (Glucophage-XR) 500 MG 24 hr tabletIndication s:Type 2 diabetes mellitus without complication, without long-term current use of insulin (HCC) TAKE 1 TABLET BY MOUTH EVERY DAY WITH THE EVENING MEAL 90 tablet 1 10/02/19 25 Active acetaminophen (Tylenol 8 Hour) 650 MG ER tabletIndication s:Chronic midline low back pain without sciatica Take 1 tablet (650 mg) by mouth every 8 (eight) hours if needed for mild pain. 60 tablet 3 10/02/19 25 Active naproxen (Naprosyn) 500 MG tabletIndication s:Pain Take 1 tablet (500 mg) by mouth with breakfast and with evening meal. 60 tablet 1 10/02/19 25 Active potassium chloride CR (Klor-Con M10) 10 MEQ ER tabletIndication s:Hypokalemia Take 1 tablet (10 mEq) by mouth Once per day. Do not crush or chew. 30 tablet 3 10/03/19 25 026 Active tadalafil (Cialis) 10 MG tabletIndication s:Other male erectile dysfunction Take 1 tablet (10 mg) by mouth if needed each day for erectile dysfunction. 10 tablet 6 08/06/19 24 025 Discontin ued(Thera py completed ) Active Problems Problem Noted Date Diagnosed Date [...] with mild benefit Plan: Will refer to [facility] Pain management clinic Other male erectile dysfunction 08/06/2023 Assessment & Plan (08/06/2023 2:46 PM EDT): Obtain Testosterone free and total Trial of Cialis Hypertriglyceridemia 03/26/2023 Assessment & Plan (12/01/2024 2:57 PM EDT): Lipid profile Lab Results Component Value Date TRIG 191 (H) 08/31/2023 TRIG 330 (H) 01/07/2023 CHOL 182 08/31/2023 CHOL 178 01/07/2023 LDLCHOLCAL 97 08/31/2023 LDLCHOLCAL 68 01/07/2023 HDL 47 08/31/2023 HDL 44 01/07/2023 Pt tried diet, exercise and lifestyle changes with no good results Regimen: Fenofibrate 48 mg po daily last visit Plan: repeat Lipid profile (he did not do it) Assessment & Plan (08/06/2023 12:21 PM EDT): [...] results Start Fenofibrate 48 mg po daily Preventative health care 11/22/2022 Assessment & Plan [...] Podiatry evaluation Type 2 diabetes mellitus without complications 0 05/27/2018 Assessment & Plan (12/01/2024 3:08 PM EDT): Pt here for Diabetes f/u controlled Hgb A1c 12/01/2024 : 5.8 Eye exam: Dr Purdy Microalbumin 10/01/2024 : 59 He is on a regimen of Metformin ER 500 mg po daily Foot check today is risk of: zero Plan: Continue Metformin ER 500mg po daily f/u 4 months Pt advised to: adhere to diabetic diet check your blood sugars regularly check your feet on a daily basis Assessment & Plan (10/01/2024 1:52 PM EDT): [...] 6.0 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) previously Microalbumin 04/2021 16.5 He is on [...] 6.3 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 Most recent electrolytes, Bun and Creatinine done on: Lab Results Component Value Date NA 145 10/13/2024 NA 142 10/01/2024 K 4.2 10/13/2024 K 3.1 (L) 10/01/2024 CL 106 10/13/2024 CL 101 10/01/2024 BUN 11 10/13/2024 BUN 10 10/01/2024 CREATININE 0.79 10/13/2024 CREATININE 0.75 10/01/2024 Will repeat today given low K ( pt was treated) patient advised to adhere to a low sodium diet, encouraged about medication compliance, counseled about weight loss. Assessment & Plan (10/01/2024 1:32 PM EDT): [...] compliance, counseled about weight loss. Morbid obesity (CMS/HCC) 11/15/2011 Assessment & Plan (10/01/2024 2:01 PM EDT): Pt counseled and educated about diet and exercise Pt was referred to the weight management treatment center at [facility] previously pt declines to consider surgical interventions, refuses to try GLP1s Assessment & Plan (08/06/2023 12:22 PM EDT): Pt counseled and educated about diet and exercise Pt was referred to the weight management treatment center at [facility] previously pt declines to consider surgical interventions Assessment & Plan (11/22/2022 2:49 PM EDT): Pt counseled and educated about diet and exercise Pt was referred to the weight management treatment center at [facility] previously pt declines to consider [...] EST): last colonoscopy showed diverticulosis only 06/2013 Resolved Problems Problem Noted Date Diagnosed Date Resolved Date Alcoholism (CMS/HCC) 11/22/2022 025 Assessment & Plan (11/22/2022 3:00 PM EDT): Pt drinking 4 x week on a daily basis approximately 6 beers per day., this is half of what it used to be Pt not interested in seeking help at the moment Pt states he will control on his own. Encounters Date Type Department Care Team Description 12/01/2024 2:30 PM EDT Office Visit [facility] [place] [address] Kyaw Nicole MD Type 2 diabetes mellitus without complication, without long-term current use of insulin (HCC) (Primary Dx); Essential hypertension; Hypertriglyceridemia ; Encounter for immunization 12/01/2024 Travel 11/30/2024 [address]phone [place] [address] Kyaw Nicole MD chart prep 11/30/2024 Travel 11/24/2024 Patient Outreach [place] [address] Kyaw Nicole MD Pre-visit Planning ((Unable to reach for PVP screening, LVM) to be completed in office ) 11/04/2024 Refill [place] [address] Kyaw Nicole MD Pain 10/21/2024 [place]phone [place] [address] Kyaw Nicole MD Appointment Confirmation 10/19/2024 Orders Only GENERIC EXTERNAL DATA DEPARTMENT Provider, Generic External Data 10/02/2024 Results Follow-Up [facility] [place] [address] Kayw Nicole MD POCT Glucose, POCT HGB A1C, Basic Metabolic Panel, Additional followed-up results: 3 10/01/2024 1:30 PM EDT Office Visit [facility] [place] [address] Kyaw Nicole MD Type 2 diabetes mellitus without complication, without long-term current use of insulin (CMS/HCC) (Primary Dx); Essential hypertension; Preoperative examination; Preventative health care; Chronic midline low back pain without sciatica; Morbid obesity (CMS/HCC); Pain; Dietary counseling; Exercise counseling 10/01/2024 [place]phone [place] [address] Kyaw Nicole MD 10/01/2024 Travel 09/29/2024 Travel from Last 3 Months Immunizations Immunization Administration Dates Next Due Hep B, adult 02/23/2016,05/18/2015,03/31/2015 Influenza injectable quadriv alent IIV4 with preservative 11/11/2018,11/15/2016,11/10/2015,03/31 Influenza injectable quadriv alent preservative free 11/22/2022,12/12/2021,03/02/2021,02/21,02/11/2018 Influenza, Split (incl. vic fied surface antigen) 04/08/2013,11/15/2011 Influenza, seasonal, injecta ble, preservative free 12/01/2024,11/26/2023 Pfizer Covid-19 Vaccine 12+ Bivalent 03/20/2022 Pneumococcal Conjugate PCV 20 12/01/2024 Pneumococcal Polysaccharide PPSV23 01/02/2011 TD (adult), 2 [...] Sign Reading Time Taken Comments Blood Pressure 120/82 12/01/2024 2:57 PM EDT Pulse 82 12/01/2024 2:57 PM EDT Temperature 36.6 C (97.9 F) 12/01/2024 2:57 PM EDT Respiratory Rate 21 12/01/2024 2:57 PM EDT Oxygen Saturation 96% 10/01/2024 1:29 PM EDT Inhaled Oxygen Concentration - - Weight 120 kg (264 lb 12.8 oz) 12/01/2024 2:57 P M EDT Height 170.2 cm (5' 7 ) 12/01/2024 2:57 PM EDT Body Mass Index 41.47 12/01/2024 2:57 PM EDT Plan of Treatment Health Maintenance Due Date Last Done Comments CT Colonography 1965 Dental Prophylaxis 1965 FIT DNA/Cologuard 1965 FIT 1965 FOBT 1965 HIV Screening 1965 Sigmoidoscopy 1965 Diabetes: Foot Exam 01/02/1976 Eye Exam 01/02/1976 Dental Oral Exam 03/25/2021 09/21/2020, 10/2019, 11/21/2016 Dental X-Ray: Bitewings 09/22/2021 09/22/19 21, 05/04/2019, 11/21/2016 Dental X-Ray: Full Mouth 09/23/2023 09/21/2020, 10/27 COVID-19 Vaccine ( season) 2024 03/20/2022, 09/21/2021, 03/01/2021, Additional history exists Depression Screening 11/25/2024 11/26/2023, 11/26/19 SDOH Screening 11/25/2024 11/26/2023 Diabetes: Hemoglobin A1C 06/01/2025 025, 10/01/2024, 11/26/2023, Additional history exists Alcohol/Substance Use Screening 10/01/2025 10/01/2024 Diabetes: Urine Protein Screening 10/01/2025 10/01/2024, 05/20/2021 Disability Screening 10/01/2025 10/01/2024 Tobacco Screening 10/01/2025 10/01/2024 Lipid Panel 12/09/2025 12/09/2024, 070 07/2023, 01/07/2023, Additional history exists Colonoscopy 11/28/2028 11/29/2023, 1005/2023, 06/29/2013 Colorectal Cancer Screening 11/28/2028 DTaP/Tdap/Td Vaccines (3 - Td or Tdap) 03/14/2030 03/14/2020, 11/15/2016, 07/06/2011, Additional history exists RSV Patients and Patients Aged 60 years or older (1 - 1-dose 75+ series) 2041 Hepatitis B Vaccines Completed 02/23/2016, 05/18/2015, 03/31/2015 Hepatitis C Screening Completed 05/20/2021 Zoster Vaccines Completed 10/10/2021, 08/01/2021 Influenza Vaccine Completed 12/01/2024, , 11/22/2022, Additional history exists Pneumococcal Vaccine: 50+ Years Completed 12/01/2024, 01/02/2011 HIB Vaccines Aged Out No longer eligi [...] Procedure Name Priority Date/Time Associated Diagnosis Comments LIPID PANEL, STANDARD Routine 12/09/2024 1:33 PM EDT Hypertriglyceridemia BASIC METABOLIC PANEL Routine 12/09/2024 1:33 PM EDT Essential hypertension POCT GLYCATED HEMOGLOBIN, TOTAL Routine 12/01/2024 3:08 PM EDT Type 2 diabetes mellitus without complication, without long-term current use of insulin (HCC) POCT GLUCOSE Routine 12/01/2024 2:58 PM EDT Type 2 diabetes mellitus without complication, without long-term current use of insulin (HCC) GROSS AND MICROSCOPIC LEVEL 3 Routine 10/19/2024 9:00 AM EDT GLUCOSE, WHOLE BLOOD Routine 10/19/2024 6:42 AM EDT BASIC METABOLIC PANEL Routine 10/13/2024 1:41 PM EDT Hypokalemia CBC WITH AUTO DIFFERENTIAL Routine 10/01/2024 2:18 PM EDT Preoperative examination ALBUMIN, RANDOM URINE W/CREATININE Routine 10/01/2024 2:18 PM EDT Type 2 diabetes mellitus without complication, without long-term current use of insulin (CMS/HCC) BASIC METABOLIC PANEL Routine 10/01/2024 2:18 PM EDT Essential hypertension ECG 12-LEAD Routine 10/01/2024 1:50 PM EDT Preoperative examination Essential hypertension POCT GLYCATED HEMOGLOBIN, TOTAL Routine 10/01/2024 1:50 PM EDT Type 2 diabetes mellitus without complication, without long-term current use of insulin (CMS/HCC) POCT GLUCOSE Routine 10/01/2024 1:49 PM EDT Type 2 diabetes mellitus without complication, without long-term current use of insulin (CMS/HCC) HM COLONOSCOPY Routine 11/29/2023 ZZZ HISTORICAL HEPATITIS C ANTIBODY RFLX Routine 05/20/2021 9:06 AM EDT INTRAORAL - COMPLETE SERIES OF RADIOGRAPHIC IMAGES Routine 09/21/2020 12:00 AM EDT PERIODIC ORAL EVALUATION - ESTABLISHED PATIENT Routine 09/21/2020 12:00 AM EDT from Last 3 Months or Most Recently Relevant to Health Maintenance Results * (ABNORMAL) Lipid Panel, Standard (12/09/2024 1:33 PM EDT) Triglycerides 153(H) <150 mg/dL [facility] Comment:Desirable Triglyceri de: less than 150 mg/dLBorderline High Triglyceride 150-199 mg/dLHigh Triglyceride: 200-499 mg/dLVery High Triglyceride: greater than or equal to 5OO mg/dL Cholesterol 161 <200 mg/dL [facility] Comment:Desirable Cholestero l: less than 200 mg/dLBorderline High Cholesterol: 200-239 mg/dLHigh Cholesterol: greater than 239 mg/dL LDL Cholesterol Calculated 82 <100 mg/dL [facility] Comment:Desirable LDL: less than 100 mg/dLNear Optimal/Above Optimal LDL: 110- 129 mg/dLBorderline High LDL: 130-159 mg/dLHigh LDL: 160-189 mg/dLVery High LDL: greater than or equal to 190 mg/dL HDL Cholesterol 49 >40 mg/dL [facility] Comment:Desirable HDL: great er than 40 mg/dL Note: This HDL assay may give artificially low results in patients with liver disease. Blood Venous blood specimen / Unknown 12/09/2024 1:33 PM EDT 12/09/2024 1:33 PM EDT Kyaw Forrest MD LAB BLOOD ORDERABLES Final Result Performing Organization Address [facility]/ZIP Co de Phone Number [facility] [address] [place] [address] [phone] * (ABNORMAL) Basic Metabolic Panel (12/09/2024 1:33 PM EDT) Only the most recent of3 resultswithin the time period is included. Sodium 142 135 - 145 mmol/L [facility] Potassium 3.9 3.3 - 5.1 mmol/L [facility] Chloride 107 96 - 108 mmol/L [facility] Carbon Dioxide 28 22 - 29 mmol/L [facility] Anion Gap 11(L) 12 - 20 [facility] Urea Nitrogen (BUN) 9 9 - 16 mg/dL [facility] Creatinine, Serum 0.72 0.5 - 1.4 mg/dL [facility] Estimated Glomerular Filt Rate >60 [facility] Comment:Chronic Kidney Disea se: Estimated GFR < 60 mL/min/1.54i4Ibotqa Kidney Disease: Estimated GFR < 15 mL/min/1.73m2 Glucose 93 60 - 115 mg/dL [facility] Calcium 9.0 8.4 - 10.2 mg/dL [facility] Blood Venous blood specimen / Unknown 12/09/2024 1:33 PM EDT 12/09/2024 1:33 PM EDT Kyaw Forrest MD LAB BLOOD ORDERABLES Final Result Performing Organization Address City/[facility]/ZIP Co de Phone Number [facility] [address] [place] [phone] [phone] * (ABNORMAL) POCT Hgb A1c (12/01/2024 3:08 PM EDT) Only the most recent of2 resultswithin the time period is included. Hemoglobin A1C 5.8(A) 4.0 - 5.7 % QC Media Lot # [id number] Lot# Expiration Date [id number] Blood 12/01/2024 3:08 PM EDT us Kyaw Forrest MD POINT OF CARE TEST EN TER/EDIT ORDERABLES Final Result * POCT Glucose (12/01/2024 2:58 PM EDT) Only the most recent of2 resultswithin the time period is included. [facility] Glucose Blood, POC 121 60 - 200 mg/dL QC Media Lot # [id number] Lot# Expiration Date 72 Blood Capillary blood specimen / Unknown 12/01/2024 2:58 PM EDT us Kyaw Forrest MD POINT OF CARE TEST EN TER/EDIT ORDERABLES Final Result * Gross and Microscopic Level 3 (10/19/2024 9:00 AM EDT) 10/19/2024 9:00 AM EDT 10/19/2024 9:35 AM EDT Hannah [facility] - 10/20/2024 11:39 AM EDT ----- ------- Name: Mirtha Johnson Age/Sex: 59/M : 1965 Unit#: [id number] Attend Dr: SULAIMAN ALAN MD Re10/19/24 Status: [facility] Location: [facility] Disch: ----- ------- SPEC : [id number] RECD: 10/19/24 STATUS: MAHSA JONES NUM: [id number] [place]: 10/19/[address] [facility] [address]: SULAIMAN ALAN MD ENTERED: 10/19/24 SP TYPE: Surgical OTHR DR: Kyaw Bains MD ORDERED: Gross Micro L3 Diagnosis Muscle, right medial rectus, excision: - Skeletal muscle with mild degenerative changes and fibrosis. - Fibrovascular tissue within normal limits. Clinical History alternating exotropia Microscopic Description Microscopic sections reviewed. Material Received Right medial rectus resection Gross Description Received in formalin is a 1.1 x 0.4 x 0.2 cm fragments of sotelo-red soft tissue, totally submitted in A1. (RJD) IHC S/NG Disclaimer NOTE: Unless otherwise stated, all tissue is formalin-fixed and paraffin-embedded. Some or all of the immunohistochemical tests reported herein may have been developed and their performance characteristics determined by [facility]. They have not been cleared or approved by the U.S. Food and Drug Administration (FDA). However, the FDA has determined that such clearance or approval is not necessary. This laboratory is certified under the Clinical Laboratory Improvement Amendments of 1988 (CLIA) as qualified to perform high complexity clinical laboratory testing. Copies To: Kyaw Bains MD [address] [address] SULAIMAN ALAN MD [address] [place] [address] [id number] [place] [address] CONTINUED ON NEXT PAGE ----- ------- Name: Sarthak CortesMirtha Rawls Age/Sex: 59/M : 1965 Unit#: [id number] Attend Dr: SULAIMAN ALAN MD Re10/19/24 Status: [facility] Location: [facility] Disch: ----- ------- SPEC : [id number] RECD: 10/19/24 STATUS: MAHSA JONES NUM: [id number] [place]: 10/19/[address] [facility] [address]: SULAIMAN ALAN MD ENTERED: 10/19/24 SP TYPE: Surgical OTHR DR: Kyaw Bains MD ORDERED: Thom Luu L3 ----- ------- Signed (signature on file) Rakesh Odom MD 10/20/24 1139 ----- ------- END OF REPORT Generic External Data Provider LAB CYTOLOGY ORDE RABLES Final Result Performing Organization Address City/[facility]/ZIP Co de Phone Number [facility] [address] [place] [phone] * Glucose, Whole Blood (10/19/2024 6:42 AM EDT) Glucose, Whole Blood 114 60 - 115 mg/dL [facility] Comment:METER #: [id number] 10/19/2024 6:42 AM EDT 10/19/2024 6:45 AM EDT us Generic External Data Provider LAB BLOOD ORDERAB LES Final Result Performing Organization Address [facility] [[email or web address]] Co de Phone Number [facility] [address] [place] [phone] * Albumin, Random Urine W/Creatinine (10/01/2024 2:18 PM EDT) Creatinine, Urine 339.34 mg/dL [facility] Microalbumin Urine 58.0 mg/L [facility] Microalbum Creatinine Ratio Ur 17.0 <30 ug/mg cr [facility] Comment:Albumin/Creatinine R atio Reference Ranges: Normal: < 30 ug/mg creatinine Microalbuminuria: 30 - 300 ug/mg creatinineClinical Albuminuria: > 300 ug/mg creatinine Urine (Urine, Random) 10/01/2024 2:18 PM EDT 10/01/2024 4:03 PM EDT us Kyaw Forrest MD LAB URINE ORDERABLES Final Result Performing Organization Address [facility]/ZIP Co de Phone Number [facility] [address] [place] [phone] * CBC auto differential (10/01/2024 2:18 PM EDT) White Blood Count 9.4 4.8 - 10.8 X10*3/uL [facility] Red Blood Count 4.91 4.60 - 5.80 X10*6/uL [facility] Hemoglobin 15.2 14.0 - 18.0 g/dl [facility] Hematocrit 43.3 42.0 - 52.0 % [facility] Mean Corpuscular Volume 88.2 80.0 - 98.0 fL [facility] Mean Corpuscular Hemoglobin 31.0 27.0 - 33.0 pg [facility] Mean Corpuscular HGB Conc 35.1 31.0 - 36.0 g/dl [facility] Red Cell Distribution Width 12.5 11.0 - 16.0 % [facility] Platelet Count 273 160 - 400 X10*3/uL [facility] Mean Platelet Volume 10.6 9.4 - 12.4 fL [facility] Neutrophils Percent Auto 60.9 45 - 73 % [facility] Imm Gran Pct Auto 0.3 0.0 - 0.4 % [facility] Lymphocytes Percent Auto 28.7 20 - 40 % [facility] Monocytes Percent Auto 8.2 2 - 11 % [facility] Eosinophils Percent Auto 1.5 0 - 4 % [facility] Basophils Percent Auto 0.4 0 - 2 % [facility] NRBC Pct Auto 0.0 0.0 - 0.2 /100WBC [facility] Neutrophils Absolute Auto 5.8 2.0 - 8.3 x10*3/uL [facility] Imm Gran Abs Auto 0.03 0.00 - 0.03 X10*3/uL [facility] Lymphocytes Absolute Auto 2.7 1.2 - 4.9 X10*3/uL [facility] Monocytes Absolute Auto 0.8 0.1 - 1.2 X10*3/uL [facility] Eosinophils Absolute Auto 0.1 0.0 - 0.4 X10*3/uL [facility] Basophils Absolute Auto 0.0 0.0 - 0.2 X10*3/uL [facility] NRBC Abs Auto 0.000 0.0 - 0.012 X10*3/uL [facility] Blood Venous blood specimen / Unknown 10/01/2024 2:18 PM EDT 10/01/2024 4:05 PM EDT Kyaw Forrest MD LAB BLOOD ORDERABLES Final Result [facility] [address] [place] [phone] * ECG 12 lead (10/01/2024 1:50 PM EDT) Narrative Kyaw Nicole MD - 10/01/2024 1:50 PM EDT Images from the original result were not included. NSR, HR [address]-t changes Kyaw Forrest MD ECG ORDERABLES Final Result * Hm Colonoscopy (11/29/2023) Colonoscopy Normal Normal Comment:Dr. Wray Historical Provider HEALTH MAINTENANCE Final Result * HEPATITIS C ANTIBODY RFLX (05/20/2021 9:06 AM EDT) Hepatitis C Antibody Nonreactive Nonreactive [facility] Comment: Antibodies to HCV not detected; does not exclude early acute HCV infection. 05/20/2021 9:06 AM EDT Kyaw Forrest MD HISTORICAL/NON ORDERA BLE LABS Final Result [facility] [address] from Last 3 Months or Most Recently Relevant to Health Maintenance Insurance * Guarantor: Mirtha Johnson Account Type Relation to Patient Date of Phone Billing Address Personal/Family Self 1965 [address] [place] [address] [facility] STAND ADULT * Guarantor: Mirtha Johnson Account Type Relation to Patient Date of Phone Billing Address Personal/Family Self [address] [place], [place] * Guarantor: Mirtha Johnson Account Type Relation to Patient Date of Phone Billing Address Personal/Family Self [address] [place], [place] Care Teams Mechanical Maintenance Supervisor Relationship Specialty Start Date End Date Kyaw Nicole MD [address] [place] [address] PCP - General Internal Medicine 01/30/18
--- OUTSIDE RECORDS SUMMARY | 2024-12-09 17:05 | XMS_ITS | Encounter Summary ---
Demographics Address [address] [place] [address] Mobile Phone Home Phone Preferred Language en Marital Status Jain Affiliation Unknown Race Other Race Ethnic Group Unknown Author Organization [employer] Address [address] [facility] [address] [place] [address] Care Team Providers Care Housing Property Manager Name Role Phone Kyaw Nicole MD Primary Care Provide r Reason for Visit * Reason Comments Med Refill Encounter Details Date Type Department Care Team (Late st Contact Info) Description 08/22/2022 Refill [facility] [address] [place], [place] [phone] Kyaw Nicole MD [address] [place] [address] Social History Tobacco Use Types Packs/Day Years [...] on filedocumented in this encounter Care Teams Housing Property Manager Relationship Specialty Start Date End Date Kyaw Nicole MD [address] [place] [address] PCP - General Internal Medicine 01/30/18 documented as of this encounter
--- OUTSIDE RECORDS SUMMARY | 2024-12-09 17:06 | XMS_ITS | Clinical Summary ---
Demographics Address [address] [facility] [place] [address] Home Phone Preferred Language Pashto Marital Status /Civil Union Restorationist Affiliation Unknown Race Unknown Ethnic Group or Author Organization [facility] Address [address] [place] [address] Phone Care Team Providers Care Senior Shipping Clerk Name Role Phone Pio Villafana NP, Ree [...] DEPRESSION SCREENING 1978 SMOKING Hx and SMOKELESS TOBACCO SCREENING 1979 HEPATITIS C SCREENING 01/02/1984 HIV ONE-TIME SCREENING (18-6 5 YEARS) 01/02/1984 PNEUMOCOCCAL VACCINES (50+ years) (1 of 2 - PCV) 1985 COLOGUARD 2011 COLONOSCOPY 2011 COLORECTAL CANCER SCREENING 2011 FIT TEST 2011 FOBT 2011 SIGMOIDOSCOPY 2011 VIRTUAL COLONOSCOPY 2011 ZOSTER VACCINES (1 of 2) 01/02/2016 INFLUENZA VACCINE (#1) 2024 0, 11/11/2018 COVID-19 VACCINE (2 - 2024-2 6 season) 2024 06/15/2020 RSV VACCINE (1 - 1-dose 75+ series) 2041 HEPATITIS A VACCINES Aged Out No long [...] Billing Address Personal/Family Self 1965 [address] [place] [address] [facility] SAF[employer] NET PARTIAL Member Subscriber Plan / Payer (Ef fective 2017-Present) Name:Mirtha De León Relation to Subscriber:Self Name:Mirtha De León Payer ID:Not on file Group ID:Not on file Type:Medicaid Address: [address] [employer] [address] SAFETY NET PARTIAL Member Subscriber Plan / Payer ( fective 2017-Present) Name:Mirtha De León Relation to Subscriber:Self Name:Mirtha De León Payer ID:Not on file Group ID:Not on file Type:Medicaid Address: [address] [employer] * Guarantor: Mirtha De León Account Type Relation to Patient Date of Phone Billing Address Personal/Family Self 1965 [address] [place] [address] HEALTH SAFETY NET PARTIAL Member Subscriber Plan / Payer (Ef fective 2017-Present) Name:Mirtha De León Relation to Subscriber:Self Name:Mirtha De León Payer ID:Not on file Group ID:Not on file Type:Medicaid Address: [address] [employer] HEALTH SAF[employer]Y NET PARTIAL Member Subscriber Plan / Payer (Ef fective 2017-Present) Name:Mirtha De León Relation to Subscriber:Self Name:Mirtha De León Payer ID:Not on file Group ID:Not on file Type:Medicaid Address: [address] [employer] * Guarantor: Mirtha De León Account Type Relation to Patient Date of Phone Billing Address Personal/Family Self 1965 [address] [place] [address] HEALTH SAFETY NET PARTIAL Member Subscriber Plan / Payer (Ef fective 2017-Present) Name:Mirtha De León Relation to Subscriber:Self Name:Mirtha De León Payer ID:Not on file Group ID:Not on file Type:Medicaid Address: [address] [employer] * Guarantor: Sarthak Mirtah Account Type Relation to Patient Date of Phone Billing Address Personal/Family Self 1965 [address] [place] [address] HEALTH SAFETY NET PARTIAL Member Subscriber Plan / Payer (Ef fective 2017-Present) Name:Mirtha De León Relation to Subscriber:Self Name:Mirtha De León Payer ID:Not on file Group ID:Not on file Type:Medicaid Address: [address] [employer] HEALTH SAFETY NET PARTIAL Member Subscriber Plan / Payer (Ef fective 2017-Present) Name:Mirtha De León Relation to Subscriber:Self Name:Mirtha De León Payer ID:Not on file Group ID:Not on file Type:Medicaid Address: [address] [employer] HEALTH SAFETY NET PARTIAL Member Subscriber Plan / Payer (Ef fective 2017-Present) Name:Mirtha De León Relation to Subscriber:Self Name:Narciso De Leónis Payer ID:Not on file Group ID:Not on file Type:Medicaid Address: [address] [employer] * Guarantor: Mirtha De León Account Type Relation to Patient Date of Phone Billing Address Personal/Family Self 1965 [address] [place] [address] HEALTH SAFETY NET PARTIAL DIRECT Care Teams Senior Shipping Clerk Relationship Specialty Start Date End Date Ree Suero NP PCP - General 09/16/17 Additional Source Comments The information contained in this document represents components of the legal health record. It is not the complete legal health record.[facility]
== END 2024-12-09 13:25 | disposition home or self-care (01) ==
LOC: HO.LAB 13:24
PROVIDERS: PCP Internal Medicine; Visit Provider Internal Medicine
DX: I10 Essential (primary) hypertension (principal); E78.1 Pure hyperglyceridemia
CPT/HCPCS: 36415; 80048; 80061

== ENCOUNTER 2025-02-04 14:09 | Outpatient (AMB) | payer MEDICAID, SELFPAY ==
--- OUTSIDE RECORDS SUMMARY | 2023-11-29 03:30 | XMS_ITS ---
Author Organization [facility] Address [address] [place] [phone] Care Team Providers Care Machine Attendant Name Role Phone Bere Forrest MD, Kyaw Primary Care Provide r Elvis Ayoub [phone] REASON FOR VISIT screening, hx polyps Problems Problem Type SNOMED Code ICD Code Onset Dates Problem Status W/U Status Risk Notes Problem Diverticular disease of colon (611079379) Diverticulosis of large intestine without perforation or abscess without bleeding (K57.30) Active confirmed Encounters Encounter Location Date Provider Diagnosis [facility] Outpatient [address], [place] [id number] 11/29/2023 Elvis Wray Colon cancer scree nelson Z12.11 ; Personal history of colonic polyps Z86.0100 ; Diverticulosis of large intestine without perforation or abscess without bleeding K57.30 and Other hemorrhoids K64.8 Assessments Encounter Date Diagnosis (ICD Code) Assessment Notes Treatment Notes Treatment Clinical Notes Section Notes 11/29/2023 Colon cancer screening (ICD-10 - Z12.11) 11/29/2023 Personal history of colonic polyps (ICD-10 - Z86.0100) 11/29/2023 Diverticulosis of large intestine without perforation or abscess without bleeding (ICD-10 - K57.30) 11/29/2023 Other hemorrhoids (ICD-10 - K64.8) Plan Of Treatment No Information Progress Notes * YORDAN MCKEEOB: 1965 (60 yo M)Acc No.[id number]:11/29/2023 COLON WITH MAC Patient: TAMI ANDERSON Provider: Willie Wray MD :1965 A ge:58 Y S ex:Male Date:11/29/2023 [facility] [address] [facility] [address] [place] [id number] Pcp:Kyaw triplett MD Subjective: * Chief Complaints: * S creening, hx polyps Assessment: * Assessment: 1. C olon cancer screening - Z12.11 (Primary) 2 . P ersonal history of colonic polyps - Z86.0100 3 . D iverticulosis of large intestine without perforation or abscess without bleeding - K57.30 4 . O ther hemorrhoids - K64.8 ? Plan: * Procedure Codes: 4 5378 DIAGNOSTIC COLONOSCOPY Billing Information: * Procedure Codes: 29284 DIAGNOSTIC COLONOSCOPY. * The named appointment provid er may or may not be the originator of this progress note, and it is not deemed complete until electronically signed by the appointment provider. Sign off status: Pending * Provider: Willie Wray MD Date: 1 Generated for Christy henderson/Claribel/Alysaransmitting on: 04/07/2024 09:40 PM EST
[2025-02-04 14:38] VITALS: BP 140/80; PULSE 82; O2SAT 97; BMI 41.8
--- NOTE | 2025-02-04 14:38 | MHC.OFFVIS ---
Vital Signs 02/04/25 14:38 Height 5 ft 7 in Weight 266 lb 12.149 oz BMI 41.8 BP 140/80 H Blood Pressure Location Lt brachial Position Sitting Pulse 82 Pulse Source Pulse Oximeter Pulse Oximetry (%) 97 Oxygen Delivery Method Room Air Intake Visit Reasons: Obstructive sleep apnea Intake Note: pt is here for follow up of colleen and doing great Glass Etcher Helper Required: No Iron And Steel Work Supervisor: Iron And Steel Work Supervisor offered & declined Allergies No Known Allergies (No Known Allergies*) Allergy (Verified 02/04/25 15:12) Medication List - Last Reconciled 02/04/25 by Sheri Radford MD acetaminophen ER 650 mg PO TID PRN chlorthalidone 50 mg PO DAILY fenofibrate nanocrystallized 48 mg PO DAILY metformin ER 500 mg PO QAM naproxen 500 mg PO BID 60 days Do you need a note to return to daycare/school/sports/work: No HPI HPI Obstructive sleep apnea: Details: THIS 60 YEARS OLD GENTLEMAN IS A CASE OF MORBID OBESITY AND OBSTRUCTIVE SLEEP APNEA. HE IS HERE FOR 6 MONTHS FOLLOW-UP. USES CPAP EVERY NIGHT REGULARLY EXCEPT ON OCCASIONAL NIGHTS HE HAS TO REMOVE THE CPAP BECAUSE HE HAS TO TAKE CARE OF HIS DAUGHTER WHO HAS EPILEPTIC ATTACKS EVERY NOW AND THEN. HE ALSO LOOKS AFTER HIS DISABLED . IN SPITE OF ALL THESE FACTORS HE STILL USES THE CPAP REGULARLY, AND SKIPS USING ONLY ONCE OR TWICE A MONTH. HE FEELS GOOD AND SLEEPS WELL WITH THE CPAP WEIGHT IS HOLDING STABLE, HE IS NOT ABLE TO LOSE MUCH WEIGHT BECAUSE HE IS NOT WORKING OUTDOORS. HE WORKS IN A [employer], AND USUALLY HAS BEEN OUT OF WORK DURING THE WINTER MONTHS, AND THAT IS WHEN HE PUTS ON MORE WEIGHT [facility] Medical History Tooth ache Smoker Bilateral cataracts Lumbar spinal stenosis Lumbar degenerative disc disease Other male erectile dysfunction Chronic midline low back pain without sciatica Hypertriglyceridemia Onychomycosis Bunion, right foot Alcoholism Male hypogonadism Tubular adenoma COLLEEN on CPAP Morbid obesity Diabetes HTN (hypertension) Obese Surgical History History of lumbar surgery H/O colonoscopy History of bilateral cataract extraction History of surgery Social History Are you a primary emergency care attendant to a significant other at home: No Do you presently have visiting nurse or other home services: No Alcohol intake: current Alcohol intake frequency: a few times a week Alcohol type: beer Patient Tobacco Use Status: Current everyday Tobacco user Tobacco use type: Cigarette Cigarette Packs Per Day: 0.5 Cigarettes Per Day: 5 Current occupational status: employed Current occupation: right hand dominant Review of Systems Const All systems reviewed & are unremarkable except as noted in HPI and below Eyes Reports no additional complaints ENT Reports no additional complaints Card Denies chest pain, Denies irregular heart rhythm and Denies leg edema Resp Reports no additional complaints GI Reports no additional complaints Reports no additional complaints Musc Reports no additional complaints Skin/Breast Reports system reviewed and no additional complaints, except as documented Neuro Reports no additional complaints Psych Reports no additional complaints Endo Reports other (Being treated for her DM.) Reilly/Lymph Reports no additional complaints Physical Exam Vital Signs: Last Vital Signs Pulse 82 02/04/25 14:38 BP 140/80 H 02/04/25 14:38 Pulse Ox 97 02/04/25 14:38 Oxygen Delivery Method Room Air 02/04/25 14:38 BMI result Body Mass Index 41.8 Const Other: HAS LOST 19 LB SINCE LAST VISIT General: comfortable, no acute distress, alert and awake Orientation/consciousness: patient oriented x3 HEENT Head: Yes normal to inspection General nose exam: No nasal polyps present and No nasal discharge present Face and sinus: Yes sinuses nontender Mouth: oropharynx abnormals (Narrow and crowded, Mallampati class 4) Throat: Yes posterior oropharynx normal Eyes General: appearance normal, both eyes and all related structures Neck Neck: Yes normal visual inspection, Yes no lymphadenopathy, Yes trachea midline and Yes no JVD Thyroid: Thyroid normal Chest Chest palpation & inspection: normal inspection of the chest, normal palpation of entire chest wall and no tenderness Resp Effort & Inspection: normal respiratory effort Auscultation: clear to auscultation bilaterally, no crackles, no rhonchi and no wheezes Percussion: percussion normal Cardio Palpation: normal PMI Rate: regular rate Rhythm: regular rhythm Heart sounds: no gallops and no murmurs GI Palpation (GI): Soft to palpation, nontender, No hepatosplenomegaly present, no masses and Other GI palpation findings present (Abdomen is slightly obese and protuberant) Auscultation: normal bowel sounds Back/Spine/Pelvis Thoracic/Lumbar Spine: thoracic and lumbar spine normal to inspection Skin General skin exam: no rashes or lesions noted Neuro General: patient oriented x3 and no focal motor deficits Cranial nerves: Yes CN's II-XII intact bilaterally Extrem General: Yes normal to inspection, Yes no clubbing, cyanosis or edema, Yes no calf tenderness and Yes venous stasis dermatitis (Mild the left leg.) Psych Appearance: grossly normal and well kempt Speech and movement: Normal speech and movement present Results Reviewed Results Reviewed: COMPLIANCE REPORT FOR THE LAST 30 NIGHTS REVIEWED. HE HAS USED 28/30 NIGHTS, 93%. AVERAGE USE IT PER NIGHT 6 HOURS 35 MINUTES. NO SIGNIFICANT AIR LEAK RESIDUAL AHI 3.2 Assessment & Plan Assessment & Plan (1) Morbid obesity: Comment: HE IS WELL AWARE OF HIS BEING OVERWEIGHT, DURING THE PAST YEAR BECAUSE HE HAD BACK SURGERY AND NOT BACK TO WORK, HE HAS PUT ON SIGNIFICANT WEIGHT. Since his last visit he has lost a few lb of weight. HE IS USUALLY OUT OF WORK DURING THE WINTER MONTHS AND NOT ABLE TO LOSE WEIGHT . Code(s): E66.01 - Morbid (severe) obesity due to excess calories Category: Medical Plan: DISCUSSED WITH HIM ABOUT THE DIET AND NEED TO DO PHYSICAL EXERCISE. WHEN HE IS OUT OF WORK HE CAN MAKE A ROUTINE OF WALKING A FEW MILES EVERY DAY. (2) COLLEEN on CPAP: Comment: HAS BEEN VERY COMPLIANT.AND IS VERY HAPPY WITH THE USAGE. RESIDUAL AHI ONLY 3.2 WHICH IS IMPROVED COMPARED TO HIS PREVIOUS VISITS . Code(s): G47.33 - Obstructive sleep apnea (adult) (pediatric); Z99.89 - Dependence on other enabling machines and devices Category: Medical Plan: COMMENDED FOR GOOD COMPLIANCE. ENCOURAGED TO KEEP ON USING CPAP EVERY NIGHT FOR MORE THAN 6 HOURS PER NIGHT. Coding Level of Care Code Est Pt Level 3 (60231) Diagnoses Morbid obesity E66.01 COLLEEN on CPAP G47.33; Z99.89
--- OUTSIDE RECORDS SUMMARY | 2025-02-04 21:40 | XMS_ITS | Data Portability ---
Author Organization [facility], [facility] Address [address] [place] [address] Care Team Providers Care Box Storage Worker Name Role Phone MAGNOLIA SERRANO Primary Care [...] and padding. No further complaints. 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 Speech recognition country printer apprentice software was used to create portions of [...] new 3v foot wb 024 12/31/19 24 [id number] [facility], [address], [place], [address], 4 16:56:01 Medication Orders None record ed. [...] a4ajBk vP9nXo QUaueC m3YtLR FvZlgJ JJ8mAn HZtai3 [id number] AC0Kqa HiCVaW gKiQtr MwF INTERFACE [facility] [address] [facility] [address], [place], [address], 12/31/2023 11:12:40 12/31/19 24 12/31/2023 XR, foot, 3 or more view http:/ [email or web address] ?Encry pted=aram Nichols YD8dLq bEUv6g %2BXZw aYqtaq 0bqfl% 2Fg9IQ a4ajBk vP9nXo QUaueC m3YtLR FvZlgJ JJ8mAn HZtai3 4u1786 AC0Kqa HiCVaW gKiQtr MwF INTERFACE [facility] [address] [facility] [address], [place], [address], 12/31/2023 11:12:42 Result Notes Documentation Provider Name and Address Organization Details Recorded Time Xr, Foot, 3 Or More View : [email or web address]? Encrypted=jrVpOysNC7yIpzO Uv6g%2MUDtnJqkwz4rcdt%2Fg 6NBk1bmMqaA8pXvIMyzgKq8Dv JRPcImvFDZ2hVkUKwer36o017 1EQ6YqbRvJFqZjAgZnaMlJ Not Available [facility] 12/31/2023 11:12: 41 Xr, Foot, 3 Or More View : [email or web address]? Encrypted=luKsCfiMF3tUeaV Uv6g%6FPZdoUfvrs8yzeu%2Fg 0RAe1tpFzeL7oXrTXebjOb9Dr SAIiHyxTFH2zQdGXsfl99h038 9WW4AoxEhHWvLaShBcpTpP Not Available [facility] 12/31/2023 11:12: 43 Medical Equipment None Reported. [...] Updated DateTime 12/31/2023 170.18 cm 42 kg/m2 369424.76 g María nails [facility] 12/31/2023 11:05:29 Date Recorded Body height Body mass index (BMI) Body weight Provider Name and Address Organization Details Last Updated DateTime 01/24/2024 170.18 cm 42 kg/m2 257871.76 g Sujey Robertson [facility] 01/24/2024 09:10:24 Social History None recorded. Functional Status None recorded. Mental Status None recorded. Family History Nothing Reported. Medical History No medical history recorded. Past Encounters Encounter ID Performer Location Encounter Start Date Encounter Closed Date Diagnosis/Indication Diagnosis SNOMED-CT Code Diagnosis ICD10 Code Diagnosis IMO Codes Diagnosis Note [id number] Paloma Shearer PA-C [facility] [address] [place] [address] 12/31/2023 10:08:10 01/20/2024 14:19:29 Pain in right foot 7257501286 38508 M79.671 [id number] Emigdio Layne MD [facility] [address] [place] [address] 01/24/2024 09:06:06 02/11/2024 09:15:51 Hallux valgus of right foot 3610196830 M20.11 [id number] Health Concerns Section Related Observation LastModified by Organization Detai ls LastModified Time None Recorded Concern Status LastModified by Organization Details LastModified Time None Recorded Advance Directives Directive None Recorded Payers Insurance Date Sequence Insurance Name Policy Number Policy Mitchell Covered Member ID Mitchell Member ID Guarantor Name 02/11/2024 1 [place] [facility] [employer] [employer] (MEDICAID) Mirtha Cortes [id number] Mirtha Cortes Notes Date Note Type Note [...] ordered, obtained and reviewed independently today at [facility]: 3 view x-rays of right foot reveal [...] plan. All questions were answered. Speech recognition country printer apprentice software was used to create portions of this document. An attempt at proofreading has been made to minimize errors. Please call for corrections. Paloma Shearer PA-C [address] [facility] [address], [place], [address], [facility] 12/31/2023 13:30:12
--- OUTSIDE RECORDS SUMMARY | 2025-02-04 21:40 | XMS_ITS | Patient Health Record ---
Demographics Address [address] [place] [address] Email Address Preferred Language en Marital Status Unknown Mormon Affiliation Unknown Race or A laska Gambell Additional Race(s) Jez Ethnic Group or Author Organization [facility] Address [address] [place] [address] Support Name Relationship Address Phone CELSO MATTA Emergency Contact [address] [place] [address] TAMI MCKEE Guarantor Unknown [phone] Care Team Providers Care Microsoft Bi Developer Name Role Phone Kyaw Nicole MD Primary Care Provide r Unavailable Elvis Wray [phone] Allergies No Known Allergies Reason For Referral No Information Medications Medication SIG (Take, Route, Frequency, Duration) Notes Start Date End Date Status metFORMIN HCl ER 500 MG Tablet Extended Release 24 Hour TAKE 1 TABLET BY MOUTH EVERY DAY WITH THE EVENING MEAL Oral; Duration: 90 Active Chlorthalidone 50 MG Tablet Oral; Duration: 90 Active Fenofibrate 48 MG Tablet 1 tablet Orally Once a day; Duration: 30 day(s) Active MiraLax (colon prep) 17 GM/SCOOP Powder 1 238 Gm bottle mixed with Gatorade or Crystal Light Orally begin at 5:00 p.m. the day before the procedure; Duration: 1 day 08/10/2023 Active Clotrimazole 1 % Cream External; Duration: 28 Active Dulcolax (colon prep) 5 MG Tablet Delayed Release take at 3:00 p.m and 7:00p.m. Orally two tablets twice a day for one day; Duration: 1 day 08/10/2023 Active Naproxen 500 MG Tablet TAKE 1 TABLET BY MOUTH WITH BREAKFAST AND EVENING MEAL Oral; Duration: 15 Active Social History Tobacco Use: Social History Observation Description Date Details (start date - stop date) Current Smoker NA - NA Social History Drugs/Alcohol: Social Info Question Answer Notes Alcohol Screen Did you have a drink containing alcohol in the past year? Yes How often did you have a drink containing alcohol in the past year? 4 or more times a week (4 points) How many drinks did you have on a typical day when you were drinking in the past year? 5 or 6 drinks (2 points) Points 6 Interpretation Positive Tobacco Use: Social Info Question Answer Notes Tobacco Use/Smoking Patient is a current smoker How often do you smoke cigarettes? every day How many cigarettes a day do you smoke? 5 or less How soon after you wake up do you smoke your first cigarette? 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 [facility] Notes: Smokes 5 cigs QD, 6-8 beers per day Problems Problem Type SNOMED Code ICD Code Onset Dates Problem Status W/U Status Risk Notes Problem Colon cancer screening (725307749) Colon cancer screening (Z12.11) Active confirmed Problem Diverticular disease of colon (329827122) Diverticulosis of large intestine without perforation or abscess without bleeding (K57.30) Active confirmed Problem Preprocedural examination (330786485810809) Preprocedural examination (Z01.818) Active confirmed Problem History of polyp of colon (situation) (795771275) History of colon polyps (Z86.010) Active confirmed Plan Of Treatment Future Test Test Name Order Date COLONOSCOPY 08/07/2023 Insurance Providers Payer Name Payer Address Payer Phone Subscriber Number Group Number Insured Name Patient Relationship to Insured Coverage Start Date Coverage End Date MEDICAID OF [facility] [address] [place] [address] [id number] TAMI MCKEE Self - patient is the insured Medical (General) History Medical History History ICD Code NIDDM Hypertension Sleep apnea/cpap Hypertriglyceridemia Tubular adenoma--last colono scopy approximately 2017, and his first colonoscopy was in approximately 2011 Denies [place],DM,CVA,Lung disease,renal dise ase Surgical History Surgery Date(Month/Year) hand surgery as child left leg veins
== END 2025-02-04 15:14 | disposition home or self-care (01) ==
LOC: HO.HPS 14:09
PROVIDERS: PCP Internal Medicine; Visit Provider Internal Medicine
DX: E66.01 Morbid (severe) obesity due to excess calories (principal); G47.33 Obstructive sleep apnea (adult) (pediatric); Z99.89 Dependence on other enabling machines and devices
CPT/HCPCS: 99213

== ENCOUNTER → 2025-02-04 14:09 | Outpatient (BNVA) | payer MEDICAID, SELFPAY | PROVIDERS: PCP Internal Medicine; Visit Provider Internal Medicine | DX: G47.33 Obstructive sleep apnea (adult) (pediatric) (principal); E66.01 Morbid (severe) obesity due to excess calories; Z99.89 Dependence on other enabling machines and devices; Z68.41 Body mass index [BMI] 40.0-44.9, adult | CPT/HCPCS: 99212 ==